=== PATIENT | male | born 1935 | race Caucasian/White ===

== ENCOUNTER 2018-02-20 05:26 | Outpatient (CLI) | payer MEDICARE, OTHER ==
[~2018-02-20] VITALS: Ht 172.7 cm; Wt 62.1 kg
[~2018-02-20 05:26] MED LIST: CIPR-17 PO; DIAZ2TAB2 PO; FINA5TAB6 PO; GABA600T2 PO; GBPN300C PO; HYDR-34 PO; METR500T PO
[2018-02-20] MEDS ORDERED: SERT50TA9 PO (12:05)
[2018-02-20] MEDS ORDERED: MULT-1102 PO (12:05)
[2018-02-20] MEDS ORDERED: FINA5TAB6 PO (12:05)
[2018-02-20] MEDS ORDERED: DIAZ2TAB2 PO (12:05)
[2018-02-20] MEDS ORDERED: GABA-488 PO (12:05)
[2018-02-20] MEDS ORDERED: UBID100C17 PO (12:05)
[2018-02-20] MEDS ORDERED: ROSU5TAB12 PO (12:05)
== END 2018-02-20 12:06 | disposition home or self-care (01) ==
LOC: PREOP 05:26
PROVIDERS: ATTEND Surgery
DX: Z29.8 Encounter for other specified prophylactic measures (principal)

== ENCOUNTER 2018-02-24 12:06 | Day surgery (SDC) | payer MEDICARE, OTHER ==
[~2018-02-24] VITALS: Ht 172.7 cm; Wt 62.1 kg
[~2018-02-24 12:06] MED LIST changes: +GABA-488 PO; +MULT-1102 PO; +ROSU5TAB12 PO; +SERT50TA9 PO; +UBID100C17 PO
[2018-02-24] MEDS ORDERED: NS IV 500 ML 500 ML ONE (12:19)
--- NOTE | 2018-02-24 12:29 | Progress Note-Pre Operative ---
Pre-Operative Progress Note H&P Reviewed The H&P was reviewed, patient examined and no changes noted. Date Seen by Provider: Feb 24, 2018 Time Seen by Provider: 12:20 Date H&P Reviewed: Feb 24, 2018 Time H&P Reviewed: 12:20 Pre-Operative Diagnosis: rectal bleed, hx ischemic colitis ATTILA FRANCO MD Feb 24, 2018 12:29
--- NOTE | 2018-02-24 12:29 | Conscious Sedation/ASA ---
Conscious Sedation Pre-Proced Time 12:20 ASA Score 3 For ASA 3 and 4: Consider anesthesia and medical clearance. Also, for patients with a history of failed moderate sedation consider anesthesia. Airway Lungs Heart ASA score ASA 1: a normal healthy patient ASA 2: a patient with a mild systemic disease (mid diabetes, controlled hypertension, obesity ASA 3: a patient with a severe systemic disease that limits activity (angina , COPD, prior Myocardial infarction) ASA 4: a patient with an incapacitating disease that is a constant threat to life (CHF, renal failure) ASA 5: a moribund patient not expected to survive 24 hrs. (ruptured aneurysm) ASA 6: a declared brain patient whose organs are being harvested. For emergent operations, add the letter E after the classification Mallampati Classification Grade 2 Sedation Plan Analgesia, Amnesia, Plan communicated to team members, Discussed options with patient/fam, Discussed risks with patient/fam The patient is an appropriate candidate to undergo the planned procedure, sedation, and anesthesia. The patient immediately re-assessed prior to indication. ATTILA FRANCO MD Feb 24, 2018 12:28
[2018-02-24] MEDS ORDERED: ACETAMINOPHEN 325 MG TABLET PO PRN (12:30)
[2018-02-24] MEDS ORDERED: HYDROcodone/APAP 5 MG/325 MG (LORTAB) TAB PO PRN (12:30)
[2018-02-24] MEDS ORDERED: morphine INJ 10 MG/ML 1ML (SYR OR VIAL) IV PRN (12:30)
[2018-02-24] MEDS ORDERED: ONDANSETRON 4 MG/2 ML (SDV) Z0FRAN IV PRN (12:30)
[2018-02-24] MEDS ORDERED: NS IV 500 ML 500 ML IV PRN (12:34)
[2018-02-24] MEDS ORDERED: LIDOCAINE JELLY 2% 6 ML SYRINGE MM PRN (12:45)
[2018-02-24] MEDS ORDERED: fentaNYL INJECTION 100 MCG/2 ML AMP IVP ONE (12:45)
[2018-02-24] MEDS ORDERED: MIDAZOLAM 2 MG/2 ML (VERSED) VIAL IVP ONE (12:45)
[2018-02-24] MEDS ORDERED: MIDAZOLAM 2 MG/2 ML (VERSED) VIAL ONE ×5 (12:55→13:13)
[2018-02-24] MEDS ORDERED: fentaNYL INJECTION 100 MCG/2 ML AMP ONE ×2 (12:55→13:11)
[2018-02-24 12:56] VITALS: BP 140/71
[2018-02-24] MEDS ORDERED: LIDOCAINE JELLY 2% 6 ML SYRINGE ONE (12:59)
--- NOTE | 2018-02-24 13:00 | Discharge Inst-Surgical ---
D/C Lap Instructions-JOAN Follow Up PRN Activity as tolerated High Fiber Diet 25g or more per day Avoid Alcohol, Caffeine, Spicy [place] and Acid foods. Drink 64 fluid oz or more of fluids per day. Symptoms to Report: Fever over 101 degree F, Nausea/Vomiting If any problems/questions: Contact your physician or go to Emergency Room ATTILA FRANCO MD Feb 24, 2018 13:00
--- NOTE | 2018-02-24 13:52 | Progress Note-Post Operative ---
Post-Operative Progess Note Surgeon (s)/Chairman & Co Founder (s) Surgeon ATTILA FRANCO MD Chairman & Co Founder: none Pre-Operative Diagnosis rectal bleed, hx ischemic colitis Post-Operative Diagnosis rectal mass 10cm from anal verge, severe sigmoid diverticulosis, mild chronic stage 2 ext and int hemorrhoids. Procedure & Operative Findings Date of Procedure 02/24/18 Procedure Performed/Findings Colonoscopy with bx and submucosal injection. Rigid proctoscopy. Anesthesia Type CS Estimated Blood Loss Estimated blood loss (mL): minimal Specimens/Packing Specimens Removed rectal mass ATTILA FRANCO MD Feb 24, 2018 13:52
--- NOTE | 2018-02-24 13:53 | Discharge Inst-Surgical ---
D/C Lap Instructions-JOAN Follow Up Appt in 1 week Activity as tolerated High Fiber Diet 25g or more per day Avoid Alcohol, Caffeine, Spicy [place] and Acid foods. Drink 64 fluid oz or more of fluids per day. Symptoms to Report: Fever over 101 degree F, Nausea/Vomiting If any problems/questions: Contact your physician or go to Emergency Room ATTILA FRANCO MD Feb 24, 2018 13:53
[2018-02-24 13:55] VITALS: BP 112/72
[2018-02-24 14:25] VITALS: BP 117/76
[2018-02-24 14:29] VITALS: BP 117/76
--- NOTE | 2018-02-25 01:33 | OPERATIVE REPORT ---
DATE OF SERVICE: 02/24/2018 ATTENDING PRIMARY CARE PHYSICIAN: Dr. Servin. PREOPERATIVE DIAGNOSES: Rectal bleed, history of ischemic colitis and severe sigmoid diverticulosis. POSTOPERATIVE DIAGNOSES: Rectal mass at approximately 8 to 10 cm from the anal verge, severe sigmoid diverticulosis with no active bleeding. Chronic stage II external and internal hemorrhoids. PROCEDURE: Colonoscopy with biopsy and submucosal injection, rigid proctoscopy. SURGEON: Attila Franco MD ANESTHESIA: Conscious sedation. ESTIMATED BLOOD LOSS: Minimal. FINDINGS: Large mass of the rectum at approximately 8 to 10 cm from the anal verge, which encompassed approximately 3/4 of the luminal diameter. This was easily friable and appeared worrisome for an adenocarcinoma. Severe sigmoid diverticulosis with no mucosal inflammatory change to indicate any active diverticulitis as well as no bleeding. The remainder of the colon was normal. DISPOSITION: The patient tolerated the procedure well. INDICATIONS: The patient is an 82-year-old male known to us. We had initially seen in 11/2010 where he presented to the Emergency Department with a 1-day history of crampy lower abdominal pain and also developed rectal bleeding at that time as well as nausea and vomiting. A CT scan was performed, which showed inflammation of the descending colon consistent with colitis. He then underwent a colonoscopy on 12/18/2010 and was found to have severe sigmoid diverticulosis as well as the descending and sigmoid colitis and the biopsies were consistent with an ischemic colitis. He was seen in the office and had reported a 2 to 3-week history of bright red blood per rectum on an intermittent basis. He does not report any abdominal pain and states that he is tolerating a regular diet and has not reported any inadvertent weight loss. He does not report any family history of colon cancer; however, does have a history of breast cancer with his sister having the disease and he has a personal history of cancer, which encompasses a bladder cancer. DESCRIPTION OF PROCEDURE: The patient was brought to the endoscopy suite, laid in the left lateral decubitus position. After adequate IV pain and sedating medications and conscious sedation anesthesia, a digital rectal examination was performed. Mild chronic stage II external and internal hemorrhoids were identified, which were not actively edematous nor inflamed and no bleeding. Normal sphincter tone was felt and there were no palpable masses. The endoscope was then intubated to the anus and rectum, gently insufflated. The endoscope was then advanced to the valves of Staton in the rectum. At approximately the 2nd or 3rd valve of Stat[place], a rectal mass was identified. This was a nonobstructing; however, approximately encompassed three-fourths of the diameter of the lumen of the rectum. This was easily friable and worrisome for an adenocarcinoma. Multiple biopsies were taken of the mass using forceps with visualization of good hemostasis. We then proceeded with a submucosal injection of black ink proximal and distal to the lesion. We then proceeded to pass the lesion into the sigmoid colon where again a severe sigmoid diverticulosis identified. There were no mucosal inflammatory changes identified to indicate any active diverticulitis as well as no active bleeding. The endoscope was then advanced to the remainder of the descending, transverse and ascending colon to the cecum. These segments were normal. Endoscope was then slowly withdrawn while taking a second look and suctioning of residual air with no additional findings. We then decided to proceed with a rigid proctoscopy to measure the distance of the lesion from the anal verge. The proctoscope was 10 cm in length and placed with the colonoscope used as a light as well as camera. The endoscope was then advanced until we could visualize the lesion, which was approximately just beyond the tip of the proctoscope. The proctoscope was then removed. The patient tolerated the procedure well. We will await the biopsy results; however, the lesion is worrisome for an adenocarcinoma of the rectum. We will await the biopsy results and then proceed with a CT scan of the abdomen and pelvis and then refer to oncology. If this is a rectal cancer for neoadjuvant chemoradiation to downsize the tumor and then proceed with a low anterior resection. Job ID: [id number] DocumentID: [id number] Dictated Date: 02/24/2018 13:40:16 Studio Owner Date: 02/25/2018 01:32:58 Dictated By: ATTILA FRANCO MD
== END 2018-02-24 14:30 | disposition home or self-care (01) ==
LOC: ENDO 12:06
PROVIDERS: ATTEND Surgery
DX: C20 Malignant neoplasm of rectum (principal); K57.30 Diverticulosis of large intestine without perforation or abscess without bleeding; K64.1 Second degree hemorrhoids; E78.00 Pure hypercholesterolemia, unspecified; F41.9 Anxiety disorder, unspecified; F32.9 Major depressive disorder, single episode, unspecified; N40.0 Benign prostatic hyperplasia without lower urinary tract symptoms; Z85.51 Personal history of malignant neoplasm of bladder; Z87.891 Personal history of nicotine dependence; Z79.899 Other long term (current) drug therapy

== ENCOUNTER → 2018-02-27 | Outpatient (CLI) | payer MEDICARE, OTHER ==
[~2018-02-27] MED LIST changes: +IOHEXOL 350 MG/ML 100 ML (OMNIPAQUE 350) VIAL IV ONE; +NS 100 ML (IVPB) BAG IV ONE; +RECEIVED CONTRAST (Hold Metformin) IV SCH
[2018-02-27 15:44] LABS: BUN/CREATININE RATIO 11; CREATININE SERUM 1.07 MG/DL (0.60-1.30); GFR ESTIMATED > 60
--- NOTE | 2018-02-28 08:59 | Diagnostic Imaging Report ---
PROCEDURE: CT abdomen and pelvis with and without contrast. TECHNIQUE: Precontrast acquisitions were acquired through the abdomen and pelvis. Multiple contiguous axial images were obtained through the abdomen and pelvis after the administration of intravenous contrast. INDICATION: Rectal/colon mass. Presurgical evaluation. COMPARISON: 11/01/2012 FINDINGS: Included portions of the lung bases are clear. CT abdomen: There is scattered colonic diverticulosis, but no CT evidence of acute diverticulitis. Moderate amount of air and stool is noted scattered throughout the colon. Normal appendix cannot be adequately identified, but there is no pericecal formation. Small bowel loops are nondistended. Evaluation of liver demonstrates a lobulated hypodense hypoenhancing lesion within segment 7 of the liver. There is no internal enhancement. Lesion has slightly increased in size when compared to 11/01/2012. 1 cm on today's exam, in comparison to 1.1 x 0.7 cm previously. Lesion otherwise continues to show a benign cystic appearance. No new hepatic mass type lesions are seen. The kidneys, adrenal glands, spleen, and pancreas have a normal CT appearance. There is no loculated fluid collection, free fluid, nor free air within the abdomen. No abnormal mesenteric or retroperitoneal adenopathy is seen. There is mild scattered calcified aortic and arterial atherosclerosis. Bony structures show S-shaped scoliotic deformity of the thoracolumbar spine with multilevel degenerative changes. No lytic or blastic osseous lesions are identified. CT pelvis: There is concentric apple core type lesion involving the high rectum near the rectosigmoidal junction. Area in question measures 1.4 cm in thickness (image 63, series 2). There is slight stranding of the surrounding colorectal fat. No abnormal pelvic adenopathy is seen. Prostate is mildly enlarged measuring 4.8 x 4 cm. Urinary bladder is grossly unremarkable. There is no loculated fluid collection, free fluid, nor free air within the pelvis. Bony structures show no acute abnormalities. IMPRESSION: 1. Concentric apple core type lesion near the rectosigmoidal junction, which is felt to correspond to patient's known malignancy. 2. Moderate amount of air and stool within the more proximal colon. Findings could be on the basis of constipation, although to some degree of obstruction cannot be entirely excluded. 3. Slight interval increase in otherwise benign-appearing hepatic cysts. 4. No evidence of distal metastatic disease within the abdomen. Dictated by: Dictated on workstation # [id number]
== END ==
LOC: RAD 15:09
PROVIDERS: ATTEND Surgery
DX: K76.89 Other specified diseases of liver (principal); K63.9 Disease of intestine, unspecified
CPT/HCPCS: 36415; 74178; 82565; 84520

== ENCOUNTER → 2018-03-14 | Outpatient (CLI) | payer MEDICARE, OTHER ==
[~2018-03-14] MED LIST changes: +GADOBUTROL 7.5 MMOL/7.5 ML (GADAVIST) VIAL IV ONE; -IOHEXOL 350 MG/ML 100 ML (OMNIPAQUE 350) VIAL IV ONE; -NS 100 ML (IVPB) BAG IV ONE; -RECEIVED CONTRAST (Hold Metformin) IV SCH
--- NOTE | 2018-03-14 10:07 | Diagnostic Imaging Report ---
PROCEDURE: MRI rectal cancer staging. TECHNIQUE: Multiplanar, multisequence MRI of the pelvis was performed with and without contrast. Gadavist intravenous contrast is administered. INDICATION: Rectal cancer, staging exam. FINDINGS: 1. MRI PROTOCOL: Overall image quality: Adequate/diagnostic. 2. TUMOR LOCATION Circumferential rectal tumor is located near the junction of the proximal and middle one-third of the rectum. Its inferior margin is approximately 10 cm above the anal verge and therefore approximately 7-8 cm above the internal anal sphincter. The inferior margin of the tumor appears to be near the level the anterior peritoneal reflection. 3. TUMOR CHARACTERISTICS, T-CATEGORY and DISTANCE TO THE MRF AND EXTRAMURAL DEPTH OF INVASION (EMD) The tumor has circumferential involvement of rectum and extends over a craniocaudal length of approximately 5 cm. The tumor invades the muscularis propria, but there are no definitive foci of extension through the muscularis propria. 4. EXTRAMURAL VASCULAR INVASION (EMVI) EMVI: No features of extramural vascular invasion. 5. MESORECTAL LYMPH NODES AND TUMOR DEPOSITS There are no enlarged soft tissue nodules/abnormal lymph nodes within the mesorectal fat. 6. EXTRAMESORECTAL LYMPH NODES No lymphadenopathy along the pelvic sidewall or superior rectal vein. IMPRESSION: 1. The rectal tumor is located in the proximal to middle one-third of the rectum and has invasion into but not beyond the muscularis propria (T2). 2. No regional lymph node metastases (N0). TNM Staging Classification Primary Tumour (T) TX Primary tumor cannot be assess. T0 No evidence of primary tumor. Tis Tis Carcinoma in situ: intraepithelial or invasion of lamina propria. T1 Tumour invades submucosa. T2 Tumor invades muscularis propria. T3 Tumor invades through the muscularis propria into pericolorectal tissues. T4a Tumor penetrates to the surface of the visceral peritoneum. T4b Tumor directly invades or is adherent to other organs or structures. Regional Lymph Nodes (N) NX Regional lymph nodes cannot be assessed. NO No regional lymph node metastasis. N1 Metastases in 1-3 regional lymph node. N2 Metastases in >4 regional lymph nodes. Distant Metastasis (M) M0 No distant metastasis. M1 Distant metastasis. Stage Prognostic Groups Stage T N N 0 Tis NO MO I T1-T2 NO MO II T3-T4 NO MO III Any T N1-N2 MO IV Any T Any N M1 Dictated by: Dictated on workstation # [id number]
== END ==
LOC: RAD 07:35
PROVIDERS: ATTEND Internal Medicine Hematology & Oncology
DX: C20 Malignant neoplasm of rectum (principal)
CPT/HCPCS: 72197

== ENCOUNTER 2018-03-23 11:37 | Outpatient (CLI) | payer MEDICARE, OTHER ==
[~2018-03-23] VITALS: Ht 172.7 cm; Wt 61.7 kg
[~2018-03-23 11:37] MED LIST changes: -GADOBUTROL 7.5 MMOL/7.5 ML (GADAVIST) VIAL IV ONE
[2018-03-23 11:58] VITALS: BP 129/82
[2018-03-23 12:40] LABS: BASOPHILS % (AUTO) 1 % (0-10); EOSINOPHILS # (AUTO) 0.1 10^3/uL (0.0-0.3); EOSINOPHILS % (AUTO) 2 % (0-10); HEMATOCRIT 39 % (40-54); HEMOGLOBIN 12.6 G/DL (13.3-17.7); LYMPHOCYTES # (AUTO) 2.1 X 10^3 (1.0-4.0); LYMPHOCYTES % (AUTO) 34 % (12-44); MEAN CORPUSCULAR HEMOGLOBIN 28 PG (25-34); MEAN CORPUSCULAR HGB CONC 33 G/DL (32-36); MEAN CORPUSCULAR VOLUME 86 FL (80-99); MEAN PLATELET VOLUME 9.9 FL (7.4-10.4); MONOCYTES # (AUTO) 0.9 X 10^3 (0.0-1.0); MONOCYTES % (AUTO) 14 % (0-12); NEUTROPHILS % (AUTO) 49 % (42-75); PLATELET COUNT 164 10^3/uL (130-400); RED CELL DISTRIBUTION WIDTH 14.5 % (10.0-14.5)
[2018-03-23 13:02] LABS: BUN/CREATININE RATIO 14; CALCIUM 9.7 MG/DL (8.5-10.1); CARBON DIOXIDE 22 MMOL/L (21-32); CHLORIDE 107 MMOL/L (98-107); GFR ESTIMATED > 60; GLUCOSE 80 MG/DL (70-105); POTASSIUM 4.2 MMOL/L (3.6-5.0); SODIUM 138 MMOL/L (135-145)
== END 2018-03-23 12:30 | disposition home or self-care (01) ==
LOC: PREOP 11:37
PROVIDERS: ATTEND Surgery
DX: Z01.812 Encounter for preprocedural laboratory examination (principal); Z11.2 Encounter for screening for other bacterial diseases; C20 Malignant neoplasm of rectum
CPT/HCPCS: 36415; 80048; 85025; 87081

== ENCOUNTER 2018-03-28 08:10 | Inpatient (IN) | payer MEDICARE, OTHER ==
[2018-03-28] VITALS (10 sets, daily range): BP systolic 100–130; BP diastolic 56–69
[~2018-03-28] VITALS: Ht 172.7 cm; Wt 61.7 kg
--- NOTE | 2018-03-28 08:32 | Progress Note-Pre Operative ---
Pre-Operative Progress Note H&P Reviewed The H&P was reviewed, patient examined and no changes noted. Date Seen by Provider: Mar 28, 2018 Time Seen by Provider: 08:32 Date H&P Reviewed: Mar 28, 2018 Time H&P Reviewed: 08:32 Pre-Operative Diagnosis: RECTAL CANCER MAIKOL PUGA MD Mar 28, 2018 08:32
[2018-03-28] MEDS ORDERED: IOPAMIDOL 61% 30 ML (ISOVUE 300) VIAL IV ONE (08:36)
[2018-03-28] MEDS ORDERED: BUP/EPI 0.5% 1:200,000 (SENSORCAINE) 30 ML VIAL ONE (08:36)
[2018-03-28] MEDS ORDERED: metroNIDAZOLE 500MG/100ML IVPB 100 ML IV ONE (08:45)
[2018-03-28] MEDS ORDERED: ceFAZolin 2 GM IV Premixed 50 ML IV ONE (08:45)
[2018-03-28] MEDS: LACTATED RINGERS 1,000 ML IV PRN ×4 (09:07→14:40)
[2018-03-28] MEDS ORDERED: MIDAZOLAM 2 MG/2 ML (VERSED) VIAL ONE (09:08)
[2018-03-28] MEDS ORDERED: ONDANSETRON 4 MG/2 ML (SDV) Z0FRAN ONE ×2 (09:08→09:11)
[2018-03-28] MEDS ORDERED: FAMOTIDINE 20MG/2ML IV (PEPCID) ONE (09:09)
[2018-03-28] MEDS ORDERED: LIDOCAINE PF 2% 5 ML (XYLOCAINE) VIAL ONE (09:11)
[2018-03-28] MEDS ORDERED: ROCURONIUM 10 MG/ML 5 ML SYRINGE IV ONE ×2 (09:11→11:42)
[2018-03-28] MEDS ORDERED: DEXAMETHASONE 10 MG/ML (DECADRON) 1 ML VIAL ONE (09:11)
[2018-03-28] MEDS ORDERED: proPOfol 200 MG/20 ML (DIPRIVAN) VIAL IV ONE (09:11)
[2018-03-28] MEDS ORDERED: SEVOFLURANE (ULTANE) 15 ML INHAL SOLN ONE ×10 (09:12→15:35)
[2018-03-28] MEDS ORDERED: fentaNYL INJECTION 100 MCG/2 ML AMP ONE ×2 (09:12→13:29)
[2018-03-28] MEDS ORDERED: MIDAZOLAM 2 MG/2 ML (VERSED) VIAL IV ONE (09:15)
[2018-03-28] MEDS ORDERED: ONDANSETRON 4 MG/2 ML (SDV) Z0FRAN IV ONE (09:15)
[2018-03-28] MEDS ORDERED: FAMOTIDINE 20MG/2ML IV (PEPCID) IV ONE (09:15)
--- NOTE | 2018-03-28 09:36 | Progress Note-Pre Operative ---
Pre-Operative Progress Note H&P Reviewed The H&P was reviewed, patient examined and no changes noted. Date Seen by Provider: Mar 28, 2018 Time Seen by Provider: 09:30 Date H&P Reviewed: Mar 28, 2018 Time H&P Reviewed: 09:30 Pre-Operative Diagnosis: rectal cancer ATTILA FRANCO MD Mar 28, 2018 09:36
[2018-03-28] MEDS ORDERED: HEParin (CENTRAL IV FLUSH) 500 UNIT/5 ML SYR ONE (10:42)
--- NOTE | 2018-03-28 10:53 | Progress Note-Post Operative ---
Post-Operative Progess Note Surgeon (s)/Protective Signal Installer Helper (s) Surgeon MAIKOL PUGA MD Protective Signal Installer Helper: NONE Pre-Operative Diagnosis RECTAL CA Post-Operative Diagnosis SAME Procedure & Operative Findings Date of Procedure 03/28/18 Procedure Performed/Findings CYSTOSCOPY, LT URETEROSCOPY AND INSERTION OF LT URETERAL STENT Anesthesia Type GENERAL Estimated Blood Loss Estimated blood loss (mL): NONE Specimens/Packing Specimens Removed NONE Packing: NONE MAIKOL PUGA MD Mar 28, 2018 10:52
[2018-03-28] MEDS ORDERED: BUPIVACAINE 0.5% 30 ML (SENSORCAINE) VIAL ONE (14:02)
[2018-03-28] MEDS ORDERED: GLYCOPYRROLATE 0.2 MG/ML (ROBINUL) 2 ML VIAL ONE (14:29)
[2018-03-28] MEDS ORDERED: NEOSTIGMINE 1 MG/ML 5 ML SYRINGE ONE (14:29)
--- NOTE | 2018-03-28 14:55 | Progress Note-Post Operative ---
Post-Operative Progess Note Surgeon (s)/Studio Manager (s) Surgeon ATTILA FRANCO MD Studio Manager: elvis fajardo QUALITY ASSURANCE INSPECTOR Pre-Operative Diagnosis RECTAL CA Post-Operative Diagnosis same Procedure & Operative Findings Date of Procedure 03/28/18 Procedure Performed/Findings low anterior colorectal resection, left subclavian central venous catheter placement. Anesthesia Type GET Estimated Blood Loss Estimated blood loss (mL): minimal Specimens/Packing Specimens Removed rectosigmoid, proximal and distal anastomotic rings. Packing: NONE ATTILA FRANCO MD Mar 28, 2018 14:55
[2018-03-28] MEDS ORDERED: NS IV 1000 ML 1,000 ML IV SCH (14:59)
[2018-03-28] MEDS ORDERED: METOCLOPRAMIDE INJ 10 MG/2 ML (REGLAN) IV PRN (15:00)
[2018-03-28] MEDS ORDERED: diphenhydrAMINE 50 MG/ML INJ (BENADRYL) IVP PRN (15:00)
[2018-03-28] MEDS ORDERED: NALOXONE 0.4 MG/ML 1 ML (NARCAN) VIAL IV PRN (15:00)
[2018-03-28] MEDS ORDERED: ONDANSETRON 4 MG/2 ML (SDV) Z0FRAN IV PRN (15:00)
[2018-03-28] MEDS ORDERED: diphenhydrAMINE 50 MG/ML INJ (BENADRYL) IV PRN (15:00)
--- NOTE | 2018-03-28 15:18 | OPERATIVE REPORT ---
DATE OF SERVICE: 03/28/2018 PREOPERATIVE DIAGNOSIS: Rectal cancer. POSTOPERATIVE DIAGNOSIS: Rectal cancer. OPERATIONS PERFORMED: Cystoscopy, left ureteroscopy and insertion of left ureteral stent. SURGEON: Leo Puga MD. ANESTHESIA: General. COMPLICATIONS: None. DESCRIPTION OF PROCEDURE: Under satisfactory general anesthesia and the patient in lithotomy position, genitalia were prepped and draped in usual sterile fashion. Cystoscope was introduced under vision. The anterior urethra was normal. The prostate was mildly enlarged; however, there was a median bar. Entering the bladder, the ureteric orifices were pulled upward and laterally. No foreign body, bladder tumor or stone visualized. Using the foroblique lens, I attempted to pass a 6-Faroese urethral catheter, whistle tip and spiral tip and was unable to do so. I was concerned that I was undermining the intramural portion of the ureter, so I removed the cystoscope, inserted the 6.9 Faroese semi-rigid ureteroscope. There was no undermining of the intramural portion and the lumen of the ureter was found to be kind of tight, which was the resistor I was feeling putting the catheter in, so I withdrew the ureteroscope, reinserted the cystoscope, passed a whistle tip 6-Faroese ureteral catheter and with gentle pushing, I was able to go through the ureteral lumen, guided fluoroscopically all the way up to the left renal pelvis, confirmed fluoroscopically and by recovering the urine from the urethral catheter. I went ahead and removed the cystoscope, inserted a 16-Faroese Delgado catheter and connected to the urethral catheter using the special connector into a common back. The patient tolerated the procedure and anesthesia well and Dr. Melendrez proceeded with his surgery that he will dictate. Job ID: [id number] DocumentID: [id number] Dictated Date: 03/28/2018 10:55:45 Dermatology Teacher Date: 03/28/2018 15:17:39 Dictated By: LEO PUGA MD
[2018-03-28] MEDS ORDERED: morphine INJ 10 MG/ML 1ML (SYR OR VIAL) ONE (15:45)
[2018-03-28] MEDS ORDERED: HYDROmorphone 2 MG/ML VIAL (DILAUDID) IV ONE (15:45)
[2018-03-28] MEDS ORDERED: ONDANSETRON 4 MG/2 ML (SDV) Z0FRAN IVP PRN (15:45)
[2018-03-28] MEDS ORDERED: morphine INJ 10 MG/ML 1ML (SYR OR VIAL) IVP ONE (15:45)
--- NOTE | 2018-03-28 16:01 | Diagnostic Imaging Report ---
INDICATION: Left subclavian central line placement. Portable chest obtained at 3:37 p.m. There is no prior study for comparison. FINDINGS: Left subclavian central catheter is seen with tip overlying the left innominate vein. There is cardiomegaly. NG tube tip is near the GE junction. Additional tube is seen overlying the lower mediastinum, tip is not visualized. There is mild bibasilar atelectasis. There is no pneumothorax or pleural fluid. IMPRESSION: Cardiomegaly with bibasilar atelectatic changes. No pneumothorax or gross pleural fluid. Left subclavian central catheter tip overlies the left innominate vein. NG tube tip is near the GE junction. Dictated by: Dictated on workstation # [id number]
--- NOTE | 2018-03-28 16:30 | NUR ---
PT RECEIVED FROM RECOVERY ROOM VIA JOHANNY CODY. PT HOOKED TO BEDSIDE MONITOR AND THIS RN OBSERVED PT'S INCISIONS, OSULLIVAN, AND LALI DRAIN AND ALL WITHIN NORMAL LIMITS. PT STATES HE IS COMFORTABLE AT THIS TIME BUT IS OBSERVED TO BE MILDLY ANXIOUS. PT GIVEN CALL LIGHT AND EDUCATED ON ROOM AND HOW TO USE HIS CALL LIGHT AND TV REMOTE.
[2018-03-28] MEDS ORDERED: METOCLOPRAMIDE INJ 10 MG/2 ML (REGLAN) IVP PRN (17:31)
[2018-03-28] MEDS: RT-ALBUTEROL SULF 2.5 MG/3 ML PRE-MIX VIAL INH SCH ×2 (17:59→23:30)
[2018-03-28] MEDS ORDERED: metroNIDAZOLE 500MG/100ML IVPB 100 ML IV SCH (18:00)
[2018-03-28] MEDS: 1/2 NS W/KCL 20 MEQ/L 1,000 ML IV SCH (18:19)
[2018-03-28] MEDS: ceFAZolin 2 GM IV Premixed 50 ML IV SCH (18:20)
[2018-03-28] MEDS: fentaNYL INJECTION 1,000 MCG in NS (IVPB) 80 ML IV SCH (18:38)
[2018-03-28] MEDS: metroNIDAZOLE 500MG/100ML IVPB 100 ML IV SCH (20:49)
[2018-03-28] MEDS: ENOXAPARIN 30 MG/0.3 ML (LOVENOX) SYR SC SCH (20:49)
[2018-03-29] VITALS (24 sets, daily range): BP systolic 115–145; BP diastolic 53–98
[2018-03-29] MEDS: 1/2 NS W/KCL 20 MEQ/L 1,000 ML IV SCH ×4 (01:26→16:48)
--- NOTE | 2018-03-29 01:32 | OPERATIVE REPORT ---
DATE OF SERVICE: 03/28/2018 ATTENDING PRIMARY CARE PHYSICIAN: Jay Servin DO PREOPERATIVE DIAGNOSIS: Rectal cancer. POSTOPERATIVE DIAGNOSIS: Rectal cancer. PROCEDURE: Low anterior colorectal resection. Placement left subclavian central venous catheter. SURGEON: Zarina Melendrez MD SULFIDE HEAD OPERATOR: Preston Ward APRN ANESTHESIA: General endotracheal. ESTIMATED BLOOD LOSS: 350 mL. FINDINGS: A tumor contained within the bowel wall, no carcinomatosis, no involvement of adjacent structures. No obvious lymphadenopathy. DISPOSITION: The patient tolerated the procedure well. INDICATIONS: The patient is an 82-year-old male known to us. We had initially seen him in November 2010 with a 1-day history of crampy lower abdominal pain and rectal bleeding as well as nausea and vomiting. At that time, a CT scan was performed, which did show some inflammation of the descending colon consistent with colitis. He then underwent a colonoscopy on 12/18/2010 and found to have a severe sigmoid diverticulosis as well as descending and sigmoid colitis. 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 He returned to the office with a 2- to 3-week history of bright red blood per rectum on an intermittent basis. He reports that this was initially mild; however, had increased. He did not report any abdominal pain as well as no inadvertent weight loss. He also did not report a family history of colon cancer; however, does have a family history of breast cancer with his sister having the disease and he has a personal history of bladder cancer. On 02/24/2018, he underwent a colonoscopy with biopsy as well as submucosal injection with a rigid proctoscope. Findings were consistent with a large mass of the rectum 8 to 10 cm from the anal verge encompassing approximately three ports of the luminal diameter. This was easily friable. He was also found to have a severe sigmoid diverticulosis; however, no mucosal inflammatory change to indicate any active diverticulitis as well as no bleeding. 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 He also underwent a CT scan, which did show the concentric apple core type lesion of the rectosigmoid region. There did not appear to be any lymphadenopathy or any other metastatic disease. DESCRIPTION OF PROCEDURE: The patient was brought to the operating room, laid supine on the table. After adequate IV pain and sedative medications and general endotracheal intubation, the abdomen was prepped and draped in standard surgical fashion. Before this the chest and neck were prepped and draped. The left subclavian vein was then cannulated withdrawing of venous blood and the guidewire was then inserted without resistance. A skin incision was made with and #11 blade and a tract created with a venous dilator. A triple lumen central venous catheter was then placed over the guidewire using the seldinger technique. All ports manuel venous blood and saline flush pushed without resistance. The catheter was then sutured to the skin with 3-0 silk. A 0.5% Marcaine with epinephrine was used to anesthetize the overlying skin in the left upper abdominal quadrant and a transverse skin incision made using a 15 blade. An 0 silk suture was applied to the medial aspect of the incision for retraction and a Veress needle inserted with a low opening pressure of 0 mmHg. The abdomen was insufflated to 15 mmHg pressure. The Veress needle removed and a 5 mm trocar placed followed by a 5 mm 45-degree angle laparoscope. A 4-quadrant abdominal x-ray was performed. There is no carcinomatosis identified as well as no obvious lesions within the peritoneal cavity. Under direct visualization, we then proceed to place a supraumbilical 10 mm port after the skin and peritoneal lining were anesthetized using 0.5% Marcaine with epinephrine and a transverse skin incision made using 15 blade. In a similar manner, a suprapubic 5 mm port was placed. The patient was placed in Trendelenburg position as well as plane left side up, right side down. We proceeded with a full dissection of the sigmoid colon as well as the descending colon to the rectum as well as the peritoneal reflection using a Sonicision as well as blunt dissection. Before the procedure, a ureteral stent was placed by urology. The ureter was identified and spared throughout the process. Good hemostasis was also observed. We then proceeded with the identification of the tumor, which was marked with submucosal injection of blacking. We proceeded with a very low dissection until we were proximal to the lesion and using the toltal mesorectal excision approach. We first tried to place a curved linear stapler, however, could not get around the lesion. We then proceeded to try to place a contour TA stapler; however, due to the angulation, we cannot achieve this with a negative margin. At this point, we decided to proceed with small infraumbilical midline laparotomy incision. This was done using a 10 blade and the subcutaneous tissue as well as fascia. Peritoneal lining were then opened under direct visualization using a Nico-Gasper device. With blunt dissection and with hand retraction, we were able to get contour TA stapler beyond the lesion and the stapler was fired. We proceeded with the proximal resection of the descending colon. A pursestring was applied and the colon resected using a 10 blade. We then proceeded with a no-touch technique and the end of the colon was dilated to approximately 32 mm. We decided to use a 29 mm EEA stapler and the anvil was placed into the lumen of the colon and the Pursestrings tied. The EEA stapler was then placed into the rectum and the anvil opened under direct visualization and the anastomosis complete. The proximal and distal anastomotic rings were identified and intact and sent to pathology. The entire rectosigmoid colon was also sent to pathology. The peritoneal cavity was then copiously irrigated and suctioned out. Good hemostasis was observed. The anastomotic line was then covered with Tisseel fibrin glue. A 19-Chadian Yon-Anderson drain was placed around the area of anastomosis and brought out one of the 5 mm trocar site and sutured to the skin using 3-0 nylon suture. The fascia and peritoneal lining were then closed using a #1 looped PDS suture. Subcutaneous tissue was then closed using 3-0 Vicryl interrupted suture. Skin was closed using 4-0 Monocryl running subcuticular suture as well as the trocar skin sites. The patient tolerated the procedure well. We will admit him to the ICU and consult his primary care physician for medical management. We will also proceed with DVT prophylaxis with early ambulation and calf SCDs as well as Lovenox injections. We will also use a TRACK REPAIRER HELPER for pain control. Once he does have some bowel function, we will discontinue his nasogastric tube and start clear liquid diet and advance as tolerated. Job ID: [id number] DocumentID: [id number] Dictated Date: 03/28/2018 15:21:46 Associate Professor Of Archaeology Date: 03/29/2018 01:31:40 Dictated By: ZARINA MELENDREZ MD [facility] HOSPITALElroy
[2018-03-29] MEDS: ceFAZolin 2 GM IV Premixed 50 ML IV SCH ×3 (01:46→19:55)
[2018-03-29] MEDS: RT-ALBUTEROL SULF 2.5 MG/3 ML PRE-MIX VIAL INH SCH ×5 (02:22→22:01)
[2018-03-29] MEDS: metroNIDAZOLE 500MG/100ML IVPB 100 ML IV SCH ×3 (03:41→21:02)
[2018-03-29 05:27] LABS: HEMOGLOBIN 10.8 G/DL (13.3-17.7); MEAN PLATELET VOLUME 9.7 FL (7.4-10.4); RED CELL DISTRIBUTION WIDTH 14.4 % (10.0-14.5); WHITE BLOOD COUNT 14.8 10^3/uL (4.3-11.0)
[2018-03-29 05:42] LABS: CALCIUM 8.1 MG/DL (8.5-10.1); CREATININE SERUM 1.19 MG/DL (0.60-1.30); POTASSIUM 4.4 MMOL/L (3.6-5.0)
--- NOTE | 2018-03-29 06:08 | NUR ---
0515--Pt c/o back discomfort r/t being in bed, pt up to chair at this time 0530--Pt reports wanting to return to bed, therapeutic communication attempted, this RN instructed pt to remain in chair longer 0545--Pt reports wanting to go back to bed, pt back to bed at this time
--- NOTE | 2018-03-29 07:35 | Consultation ---
History of Present Illness History of Present Illness Patient Consulted On(dwayne/time) 03/29/18 07:30 Time Seen by Provider: 07:30 History of Present Illness Patient came to the office complaining of blood in the stools. Patient had a colonoscopy showing that rectal mass. Patient seen by oncology. Patient had surgical removal of tumor yesterday Patient's white blood cell 14,000 today. Temperature yesterday 100.2. Patient has a previous history of bladder cancer. Abdomen distended this morning normal bowel sounds. Allergies and Home Medications Allergies Coded Allergies: ciprofloxacin (Verified Allergy, Unknown, 02/20/18) Home Medications Diazepam 2 Mg Tablet, 1 MG PO DAILY, (Reported) take 1/2of 2mg tab Finasteride 5 Mg Tablet, 5 MG PO DAILY, (Reported) Gabapentin 300 Mg Capsule, 300 MG PO TID, (Reported) Multivit-Min/Folic/Vit K/Lycop 1 Each Tablet, 1 EACH PO DAILY, (Reported) Rosuvastatin Calcium 5 Mg Tablet, 5 MG PO HS, (Reported) Sertraline HCl 50 Mg Tablet, 50 MG PO DAILY, (Reported) Ubidecarenone Unknown Strength Capsule, 200 MG PO DAILY, (Reported) Patient Home Medication List Home Medication List Reviewed: Yes Past Hcjptzh-Jhvnhx-Rdhfjd Hx Patient Social History Alcohol Use: Denies Use Recreational Drug Use: No Former Smoker, Quit: Feb 20, 1999 Recent Foreign Travel: No Contact w/Someone Who Travel: No Recent Infectious Disease Expo: No Recent Hopitalizations: No Immunizations Up To Date Date of Influenza Vaccine: Nov 21, 2017 Seasonal Allergies Seasonal Allergies: No Past Medical History Surgeries: Yes (TURBT X2) Respiratory: No Cardiac: Yes High Cholesterol Neurological: Yes Reproductive Disorders: No Genitourinary: Yes (hx bladder cancer) Benign Prostatic Hyperpl Gastrointestinal: Yes (rectal CANCER) Musculoskeletal: No Endocrine: No HEENT: No Cancer: Yes Bladder What Type of Treatment Did You: Surgical Intervention Psychosocial: No Integumentary: No Blood Disorders: No Family Medical History Diabetes mellitus G8 BROTHER FH: breast cancer 19 MOTHER G8 SISTER Review of Systems-General Constitutional: weakness EENTM: no symptoms reported Respiratory: no symptoms reported Cardiovascular: no symptoms reported Gastrointestinal: other (No bowel sounds, distention) Genitourinary: no symptoms reported Physical Exam-General Problems Physical Exam Vital Signs Vital Signs - First Documented 03/28/18 03/28/18 03/28/18 08:35 16:45 20:48 Temp 99.1 Pulse 86 Resp 16 B/P (MAP) 100/67 (78) Pulse Ox 94 O2 Delivery Room Air Capillary Refill : General Appearance: no apparent distress, thin Eyes: Bilateral Eye Normal Inspection HEENT: normal ENT inspection Neck: full range of motion Respiratory: lungs clear, normal breath sounds, no respiratory distress, no accessory muscle use Cardiovascular: regular rate, rhythm, no murmur Gastrointestinal: other (No bowel sounds, NG tube in place) Assessment/Plan Assessment/Plan Admission Diagnosis/Plan Rectal cancer. Leukocytosis Admission Status: Inpatient Order (span 2 midnights) Reason for Inpatient Admission: Surgery for rectal cancer in ICU RENAN WILSON DO Mar 29, 2018 07:35
[2018-03-29] MEDS: PANTOPRAZOLE 40 MG (PROTONIX) VIAL IV SCH (09:08)
[2018-03-29] MEDS: SENNA W/DOCUSATE (SENOKOT S) TABLET PO SCH (09:08)
[2018-03-29] MEDS: ENOXAPARIN 30 MG/0.3 ML (LOVENOX) SYR SC SCH ×2 (09:08→21:02)
--- NOTE | 2018-03-29 11:33 | NUR ---
Pastoral care visit, shared departments availability and offered support and prayer,pt was resting, pts advised they are members of [facility].
[2018-03-29] MEDS ORDERED: ACETAMINOPHEN 650 MG SUPP (TYLENOL) PR PRN (12:30)
[2018-03-29] MEDS: ACETAMINOPHEN 325 MG TABLET PO PRN ×3 (14:05→23:24)
--- NOTE | 2018-03-29 14:25 | Progress Note (SOAP) ---
Subjective Date Seen by a Provider: Mar 29, 2018 Time Seen by a Provider: 14:00 Subjective/Events-last exam doing ok. pjain controlled with BRIDGE TENDER, moderate NGT output. low grade fevers most likely due to atelectasis. minimal LALI output. Objective Exam Vital Signs Date Time Temp Pulse Resp B/P (MAP) Pulse Ox O2 Delivery O2 Flow Rate FiO2 03/29/18 14:05 101.5 03/29/18 14:00 93 36 130/65 (86) 94 Room Air 03/29/18 13:00 115 38 117/92 (100) 95 Room Air 03/29/18 12:57 100.4 03/29/18 12:00 117 31 126/74 (91) 93 Room Air 03/29/18 11:40 100.8 03/29/18 11:00 99 28 140/72 (94) 100 Room Air 03/29/18 10:56 93 Room Air 03/29/18 10:00 92 28 128/64 (85) 93 Room Air 03/29/18 09:00 111 19 115/66 (82) 96 Room Air 03/29/18 08:45 94 Room Air 03/29/18 08:00 114 34 117/53 (74) 93 Room Air 03/29/18 07:06 94 Room Air 03/29/18 07:00 101 03/29/18 07:00 93 26 117/70 (86) 94 Room Air 03/29/18 06:00 86 27 125/69 (87) 94 Room Air 03/29/18 06:00 22 03/29/18 05:00 109 24 141/84 (103) 97 Room Air 03/29/18 04:00 104 27 129/69 (89) 94 Room Air 03/29/18 04:00 94 Room Air 03/29/18 03:46 100.2 03/29/18 03:00 108 23 132/61 (84) 92 Room Air 03/29/18 02:22 93 Room Air 03/29/18 02:00 92 17 138/68 (91) 94 Room Air 03/29/18 01:00 94 20 131/66 (87) 94 Room Air 03/29/18 01:00 94 03/29/18 00:00 93 27 129/65 (86) 94 Room Air 03/29/18 00:00 94 Room Air 03/28/18 23:44 100.1 03/28/18 23:00 95 26 125/69 (87) 94 Room Air 03/28/18 22:00 102 16 124/65 (84) 95 Room Air 03/28/18 21:00 22 03/28/18 21:00 94 24 130/68 (88) 94 Room Air 03/28/18 20:48 99.1 Room Air 03/28/18 20:00 94 Room Air 03/28/18 20:00 93 13 112/63 (79) 95 Room Air 03/28/18 19:00 95 03/28/18 19:00 95 17 104/63 (77) 94 Room Air 03/28/18 18:02 95 Room Air 03/28/18 17:45 93 22 107/63 (78) 95 Room Air 03/28/18 17:30 91 17 106/61 (76) 95 Room Air 03/28/18 17:15 86 03/28/18 17:15 88 22 105/59 (74) 94 Room Air 03/28/18 17:00 82 18 102/56 (71) 94 Room Air 03/28/18 16:45 86 16 100/67 (78) 95 Room Air I & O 03/29/18 07:00 Intake Total 5450 ml Output Total 1303 ml Balance 4147 ml Capillary Refill : General Appearance: No Apparent Distress HEENT: PERRL/EOMI, TMs Normal Neck: Full Range of Motion Respiratory: Chest Non Tender, Lungs Clear, Decreased Breath Sounds Cardiovascular: Regular Rate, Rhythm Gastrointestinal: soft, tenderness, other (wounds clean/dry) Extremity: Normal Capillary Refill Neurologic/Psychiatric: Alert, Oriented x3 Skin: Normal Color Lymphatic: No Adenopathy Results Lab Laboratory Tests 03/29/18 05:15: White Blood Count 14.8H, Red Blood Count 3.78L, Hemoglobin 10.8L, Hematocrit 32L , Mean Corpuscular Volume 85, Mean Corpuscular Hemoglobin 29, Mean Corpuscular Hemoglobin Concent 34, Red Cell Distribution Width 14.4, Platelet Count 185, Mean Platelet Volume 9.7, Sodium Level 134L, Potassium Level 4.4, Chloride Level 107, Carbon Dioxide Level 19L, Anion Gap 8, Blood Urea Nitrogen 18, Creatinine 1.19, Estimat Glomerular Filtration Rate 59, BUN/Creatinine Ratio 15 , Glucose Level 145H, Calcium Level 8.1L Assessment/Plan Assessment/Plan Assess & Plan/Chief Complaint s/p LAR for ca. increase ambulation. continue DVT prophylaxis. IS and breathing tx. ATTILA FRANCO MD Mar 29, 2018 14:25
--- NOTE | 2018-03-29 14:48 | Anesthesia-General Post-Op ---
General Patient Condition Mental Status/LOC: Same as Preop Cardiovascular: Satisfactory Nausea/Vomiting: Absent Respiratory: Satisfactory Pain: Controlled Complications: Absent Post Op Complications Complications None Follow Up Care/Instructions Patient Instructions None needed. Anesthesia/Patient Condition Patient Condition Patient is doing well, no complaints, stable vital signs, no apparent adverse anesthesia problems. No complications reported per nursing. D/C home per [facility] Criteria: PAPO Alan CRNA Mar 29, 2018 14:48
--- NOTE | 2018-03-29 15:32 | NUR ---
DR FRANCO ON FLOOR NEW VERBAL ORDERS RECEIVED SEE ORDER HX
--- NOTE | 2018-03-29 15:54 | Physical Therapy Evaluation ---
PT Evaluation-General Medical Diagnosis Admission Date Mar 28, 2018 at 08:10 Medical Diagnosis: Rectal CA Onset Date: Mar 28, 2018 Therapy Diagnosis Therapy Diagnosis: weakness; abn gait Height/Weight Height (Feet): 5 Height (Inches): 8.00 Weight (Pounds): 136 Weight (Ounces): 0.0 Precautions Precautions/Isolations: Fall Prevention, Standard Precautions Weight Bear Status Right Lower Extremity: Right Weight Bearing/Tolerated Left Lower Extremity: Left Weight Bearing/Tolerated Referral Physician: Parvin Reason for Referral: Evaluation/Treatment (encourage gait) Medical History Additional Medical History Hx of bladder CA Current History Pt admitted post colonoscopy which identified a rectal mass. He is post segmoid resection. Reviewed History: Yes Social History Home: Single Level Current Living Status: Spouse Entry Into Home: Stairs With Railing Prior/Core FIM Prior Level of Function Therapy Code Descriptions/Definitions Functional Sheldon Measure: 0=Not Assessed/NA 4=Minimal Assistance 1=Total Assistance 5=Supervision or Setup 2=Maximal Assistance 6=Modified Sheldon 3=Moderate Assistance 7=Complete Sheldon Therapy Quality Codes: 6 Independent with activity with or without an assistive device 5 Patient requires set up or clean up by helper. Patient completes activity by themselves 4 Supervision or touching assist (CGA). Vernon provide cues , steadying assist 3 The helper provides less than half the effort to complete the activity 2 The helper provides more than half the effort to complete the activity 1 Dependent. The helper does all the effort to complete an activity 7 Patient refused to complete or attempt activity 9 The patient did not perform the activity before the current illness or injury 88 Not attempted due to Medical conditions or safety concerns Functional Abilities and Goals: Independent: Patient completed the activities by him/herself, with or without an assistive device, with no assistance from a helper. Needed Some Help: Patient needed partial assistance from another person to complete activities. Dependent: A helper completed the activities for the patient. Unknown: Not Applicable: Bed Mobility: 7 Transfers (B,C,W/C) (FIM): 7 Gait: 7 Indoor Mobility (Ambulation): Independent Indep with functional mobility; drives PT Evaluation-Current Subjective Agrees to ambulation with encouragement. Pain Numeric Pain Scale: 6 Location: Incisional Location Body Site: Abdomen Pain Description: Stabbing Pt/Family Goals Home with when able. Objective Patient Orientation: Person, Place, Time, Situation Problem Solving: Fair Attachments: NG Tube, Drains, Delgado Catheter, IV ROM/Strength ROM Lower Extremities WNL Strength Lower Extremities WFL Integumentary/Posture Integumentary refer to nursing notes. Bowel Incontinence: No Bladder Incontinence: Delgado Cath Posture normal and symmetrical Neuromuscular (Tone, Coordination, Reflexes) WFL Sensory Vision: Functional Hearing: Functional Hand Dominance: Right Sensation Right Lower Extremit: Intact Sensation Left Lower Extremity: Intact Transfers Therapy Code Descriptions/Definitions Functional Sheldon Measure: 0=Not Assessed/NA 4=Minimal Assistance 1=Total Assistance 5=Supervision or Setup 2=Maximal Assistance 6=Modified Sheldon 3=Moderate Assistance 7=Complete Sheldon Transfers (B, C, W/C) (FIM): 3 Supine to/from Sit: 3 Sit to/from Stand: 4 (min assist to come to a stand) Gait Mode of Locomotion: Walk Anticipated Mode of Locomotion: Walk Gait (FIM): 2 Distance (FIM): 9=352-10 ft Distance: 60 ft Gait Level of Assist: 4 Gait Assistive Device: FWW Comments/Gait Description slow gait; slightly unsteady; guarded due to abdominal pain Balance Sitting Static: Good Sitting Dynamic: Good Standing Static: Fair Standing Dynamic: Fair Treatment Ambulated and up in chair post treatment with needs met and nurse present. Assessment/Needs Post sigmoid colon resection with discomfort with movement. Will benefit from PT to promote functional mobility to enhance his recovery process and increase strength to return home with his spouse. Rehab Potential: Good PT Shoe Repair Supervisor Goals Shoe Repair Supervisor Goals PT Shoe Repair Supervisor Goals Time Frame: Apr 05, 2018 Transfers (B,C,W/C) (FIM): 7 Gait (FIM): 6 Gait distance (FIM): 3=150 ft PT Plan Problem List Problem List: Activity Tolerance, Functional Strength, Safety, Balance, Gait, Transfer, Bed Mobility Treatment/Plan Treatment Plan: Continue Plan of Care Treatment Plan: Bed Mobility, Education, Functional Activity Giuseppe, Functional Strength, Gait, Safety, Therapeutic Exercise, Transfers Treatment Duration: Apr 05, 2018 Frequency: 6 times per week Estimated Hrs Per Day: .5 hour per day Patient and/or Family Agrees t: Yes Safety Risks/Education Patient Education: Transfer Techniques, Safety Issues Teaching Recipient: Patient Teaching Methods: Demonstration, Discussion Response to Teaching: Reinforcement Needed Time/GCodes Time In: 1450 Time Out: 1505 Total Billed Treatment Time: 15 Total Billed Treatment visit EVM 15 ALLYSSA VERMA PT Mar 29, 2018 15:54
--- NOTE | 2018-03-29 17:19 | NUR ---
TEXTILE CUTTING MACHINE OPERATOR CHANGES MADE BY THIS RN WITH WITNESS OF Camila SILVERIO RN. PT INFORMED OF CHANGES
[2018-03-29] MEDS: FUROSEMIDE 40 MG/4 ML INJ (LASIX) IVP SCH ×2 (17:41→23:22)
[2018-03-29] MEDS ORDERED: RT-ALBUTEROL SULF 2.5 MG/3 ML PRE-MIX VIAL INH PRN (19:15)
[2018-03-30] VITALS (15 sets, daily range): BP systolic 110–164; BP diastolic 66–97
[2018-03-30] MEDS: 1/2 NS W/KCL 20 MEQ/L 1,000 ML IV SCH ×4 (00:37→21:06)
[2018-03-30] MEDS: RT-ALBUTEROL SULF 2.5 MG/3 ML PRE-MIX VIAL INH SCH ×6 (02:43→22:44)
[2018-03-30] MEDS: ceFAZolin 2 GM IV Premixed 50 ML IV SCH ×3 (03:16→20:12)
[2018-03-30 03:17] LABS: BASOPHILS % (AUTO) 0 % (0-10); EOSINOPHILS % (AUTO) 0 % (0-10); HEMATOCRIT 29 % (40-54); HEMOGLOBIN 9.8 G/DL (13.3-17.7); LYMPHOCYTES # (AUTO) 0.9 X 10^3 (1.0-4.0); LYMPHOCYTES % (AUTO) 6 % (12-44); MEAN CORPUSCULAR HEMOGLOBIN 28 PG (25-34); MEAN CORPUSCULAR HGB CONC 34 G/DL (32-36); MEAN CORPUSCULAR VOLUME 84 FL (80-99); MEAN PLATELET VOLUME 9.5 FL (7.4-10.4); MONOCYTES # (AUTO) 1.3 X 10^3 (0.0-1.0); MONOCYTES % (AUTO) 9 % (0-12); NEUTROPHILS # (AUTO) 12.6 X 10^3 (1.8-7.8); NEUTROPHILS % (AUTO) 85 % (42-75); PLATELET COUNT 126 10^3/uL (130-400); RED CELL DISTRIBUTION WIDTH 14.5 % (10.0-14.5); WHITE BLOOD COUNT 14.8 10^3/uL (4.3-11.0)
[2018-03-30 03:30] LABS: BUN/CREATININE RATIO 12; CALCIUM 8.3 MG/DL (8.5-10.1); CARBON DIOXIDE 20 MMOL/L (21-32); CHLORIDE 106 MMOL/L (98-107); CREATININE SERUM 1.07 MG/DL (0.60-1.30); GFR ESTIMATED > 60; GLUCOSE 122 MG/DL (70-105); SODIUM 135 MMOL/L (135-145)
[2018-03-30 03:47] LABS: BAND NEUTROPHILS 16 %; BASOPHILS % (MANUAL) 0 %; EOSINOPHILS % (MANUAL) 0 %; LYMPHOCYTES % (MANUAL) 4 %; MONOCYTES % (MANUAL) 2 %; NEUTROPHILS % (MANUAL) 75 %; REACTIVE LYMPHOCYTES 3 %
[2018-03-30 03:48] LABS: ROULEAUX SLIGHT
[2018-03-30] MEDS: FUROSEMIDE 40 MG/4 ML INJ (LASIX) IVP SCH ×3 (05:34→17:55)
[2018-03-30] MEDS: metroNIDAZOLE 500MG/100ML IVPB 100 ML IV SCH ×3 (05:34→21:06)
--- NOTE | 2018-03-30 07:40 | Progress Note (SOAP) ---
Subjective Time Seen by a Provider: 07:37 Subjective/Events-last exam Patient feeling better today. Not much liquid out of the nasogastric tube. Patient not running any elevated temperature. White blood cell count 14,000 the same as yesterday. Abdomen still has some distention. No bowel sounds. Objective Exam Vital Signs Date Time Temp Pulse Resp B/P (MAP) Pulse Ox O2 Delivery O2 Flow Rate FiO2 03/30/18 06:56 96 Room Air 03/30/18 06:00 96 23 137/83 (101) 94 Room Air 03/30/18 05:38 22 03/30/18 05:00 106 23 128/66 (86) 94 Room Air 03/30/18 04:00 95 Room Air 03/30/18 04:00 100 20 127/77 (94) 94 Room Air 03/30/18 03:14 98.3 03/30/18 03:00 107 26 118/69 (85) 95 Room Air 03/30/18 02:43 94 Room Air 03/30/18 02:00 100 19 138/71 (93) 94 Room Air 03/30/18 01:00 101 03/30/18 01:00 96 21 121/77 (92) 94 Room Air 03/30/18 00:00 95 Room Air 03/30/18 00:00 97 23 110/75 (87) 92 Room Air 03/29/18 23:24 100.4 03/29/18 23:00 108 26 121/93 (102) 93 Room Air 03/29/18 22:01 93 Room Air 03/29/18 22:00 105 27 128/72 (90) 92 Room Air 03/29/18 21:00 110 28 139/98 (112) 93 Room Air 03/29/18 20:00 95 Room Air 03/29/18 20:00 107 29 145/73 (97) 93 Room Air 03/29/18 19:53 101.2 Room Air 03/29/18 19:11 93 Room Air 03/29/18 19:00 102 18 144/77 (99) 93 Room Air 03/29/18 19:00 102 03/29/18 18:44 100.1 03/29/18 18:07 22 03/29/18 18:04 100.9 03/29/18 18:00 108 30 131/70 (90) 95 Room Air 03/29/18 17:00 101 30 131/60 (83) 94 Room Air 03/29/18 16:35 95 Room Air 03/29/18 16:00 115 21 117/67 (84) 94 Room Air 03/29/18 15:00 115 28 139/71 (93) Room Air 03/29/18 14:45 92 Room Air 03/29/18 14:05 101.5 03/29/18 14:00 93 36 130/65 (86) 94 Room Air 03/29/18 13:00 106 03/29/18 13:00 115 38 117/92 (100) 95 Room Air 03/29/18 12:57 100.4 03/29/18 12:35 95 Room Air 03/29/18 12:00 117 31 126/74 (91) 93 Room Air 03/29/18 11:40 100.8 03/29/18 11:00 99 28 140/72 (94) 100 Room Air 03/29/18 10:56 93 Room Air 03/29/18 10:00 92 28 128/64 (85) 93 Room Air 03/29/18 09:00 111 19 115/66 (82) 96 Room Air 03/29/18 08:45 94 Room Air 03/29/18 08:00 114 34 117/53 (74) 93 Room Air I & O 03/30/18 07:00 Intake Total 1350 ml Output Total 3120 ml Balance -1770 ml Capillary Refill : General Appearance: No Apparent Distress, Thin HEENT: Normal ENT Inspection Neck: Full Range of Motion Respiratory: Lungs Clear, No Accessory Muscle Use, No Respiratory Distress Cardiovascular: Regular Rate, Rhythm, No Murmur Gastrointestinal: other (Normal bowel sounds) Results Lab Laboratory Tests 03/30/18 03:06 Laboratory Tests 03/30/18 03:06: White Blood Count 14.8H, Red Blood Count 3.47L, Hemoglobin 9.8L, Hematocrit 29L , Mean Corpuscular Volume 84, Mean Corpuscular Hemoglobin 28, Mean Corpuscular Hemoglobin Concent 34, Red Cell Distribution Width 14.5, Platelet Count 126L, Mean Platelet Volume 9.5, Neutrophils (%) (Auto) 85H, Lymphocytes (%) (Auto) 6L , Monocytes (%) (Auto) 9, Eosinophils (%) (Auto) 0, Basophils (%) (Auto) 0, Neutrophils # (Auto) 12.6H, Lymphocytes # (Auto) 0.9L, Monocytes # (Auto) 1.3H, Eosinophils # (Auto) 0.0, Basophils # (Auto) 0.0, Neutrophils % (Manual) 75, Lymphocytes % (Manual) 4, Monocytes % (Manual) 2, Eosinophils % (Manual) 0, Basophils % (Manual) 0, Band Neutrophils 16, Reactive Lymphocytes 3, Rouleau SLIGHT, Sodium Level 135, Potassium Level 4.0, Chloride Level 106, Carbon Dioxide Level 20L, Anion Gap 9, Blood Urea Nitrogen 13, Creatinine 1.07, Estimat Glomerular Filtration Rate > 60, BUN/Creatinine Ratio 12, Glucose Level 122H, Calcium Level 8.3L Assessment/Plan Assessment/Plan Assess & Plan/Chief Complaint Rectal cancer. Leukocytosis. . 03/30/18. Rectal cancer. Leukocytosis. Patient feeling better today. Patient able to walk and ready. No bowel sounds RENAN WILSON DO Mar 30, 2018 07:39
[2018-03-30] MEDS: SENNA W/DOCUSATE (SENOKOT S) TABLET PO SCH (08:05)
[2018-03-30] MEDS: PANTOPRAZOLE 40 MG (PROTONIX) VIAL IV SCH (08:05)
[2018-03-30] MEDS: ENOXAPARIN 30 MG/0.3 ML (LOVENOX) SYR SC SCH ×2 (08:05→21:06)
[2018-03-30] MEDS: ONDANSETRON 4 MG/2 ML (SDV) Z0FRAN IVP PRN (09:06)
--- NOTE | 2018-03-30 10:06 | Physical Therapy Daily Note ---
PT Daily Note-Current Subjective Wanting to get out of bed initially but after walking wanted to return to bed. Reluctantly agreed to sit up in the chair post treatment. Pain Numeric Pain Scale: 7 Location: Incisional Location Body Site: Abdomen Pain Description: Acute Mental Status Patient Orientation: Person, Place, Time, Situation Attachments: NG Tube, Drains, Delgado Catheter, IV Transfers Therapy Code Descriptions/Definitions Functional [place] Measure: 0=Not Assessed/NA 4=Minimal Assistance 1=Total Assistance 5=Supervision or Setup 2=Maximal Assistance 6=Modified [place] 3=Moderate Assistance 7=Complete [place] Therapy Quality Codes: 6 Independent with activity with or without an assistive device 5 Patient requires set up or clean up by helper. Patient completes activity by themselves 4 Supervision or touching assist (CGA). [place] provide cues , steadying assist 3 The helper provides less than half the effort to complete the activity 2 The helper provides more than half the effort to complete the activity 1 Dependent. The helper does all the effort to complete an activity 7 Patient refused to complete or attempt activity 9 The patient did not perform the activity before the current illness or injury 88 Not attempted due to Medical conditions or safety concerns Transfers (B, C, W/C) (FIM): 3 Supine to/from Sit: 3 (cues and training on log roll to decrease abdmonial exertion with sitting up) Sit to/from Stand: 4 (min assist and skilled cues to push up from the chair. ) Weight Bearing Right Lower Extremity: Right Weight Bearing/Tolerated Left Lower Extremity: Left Weight Bearing/Tolerated Gait Training Gait (FIM): 2 Distance: 60 ft x 1 and 80 ft x 1 Gait Level of Assist: 4 (CGA for safety) Gait Assistive Device: FWW slow gait with decreased step length; guarded due to abdominal pain. Exercises Seated Therapy Exercises: Ankle pumps, Long arc quads Seated Reps: 10 (to promote LE ROM and circulation) Treatments Up in chair post treatment, asked pt to sit up for at least 30 minutes and longer if he was able. Nursing notified. Assessment Current Status: Good Progress Increased gait distance this visit. Sore with movement. PT Snf Goals Snf Goals PT Snf Goals Time Frame: Apr 05, 2018 Transfers (B,C,W/C) (FIM): 7 Gait (FIM): 6 Gait distance (FIM): 3=150 ft PT Plan Problem List Problem List: Activity Tolerance, Functional Strength, Safety, Gait, Transfer, Bed Mobility Treatment/Plan Treatment Plan: Continue Plan of Care Treatment Plan: Bed Mobility, Education, Functional Activity Giuseppe, Functional Strength, Gait, Safety, Therapeutic Exercise, Transfers Treatment Duration: Apr 05, 2018 Frequency: 6 times per week Estimated Hrs Per Day: .5 hour per day Patient and/or Family Agrees t: Yes Safety Risks/Education Patient Education: Transfer Techniques Teaching Recipient: Patient Teaching Methods: Demonstration, Discussion Response to Teaching: Reinforcement Needed Time/GCodes Time In: 925 Time Out: 950 Total Billed Treatment Time: 25 Total Billed Treatment visit GT 15 FA 10 ALLYSSA VERMA PT Mar 30, 2018 10:06
--- NOTE | 2018-03-30 16:06 | NUR ---
Pt does by "Perry." Met pt's client relationship executive, Yair, at the entrance of ICU and accompanied him to the pt's room. Pt asked if I could help him and said his back was hurting. I empathetically listened and notified staff, who promptly responded and repositioned the pt in bed. Pt is Tera
--- NOTE | 2018-03-30 17:29 | Progress Note (SOAP) ---
Subjective Date Seen by a Provider: Mar 30, 2018 Time Seen by a Provider: 17:00 Subjective/Events-last exam doing well. pain controlled. ambulating well. mininimal NGT and LALI output. no fever/chills. Objective Exam Vital Signs Date Time Temp Pulse Resp B/P (MAP) Pulse Ox O2 Delivery O2 Flow Rate FiO2 03/30/18 16:00 114 27 164/97 (119) 94 Room Air 03/30/18 16:00 96 Room Air 03/30/18 15:04 94 Room Air 03/30/18 13:00 92 03/30/18 12:00 96 21 127/74 (91) 95 Room Air 03/30/18 12:00 96 Room Air 03/30/18 12:00 99.2 03/30/18 11:00 98 24 146/79 (101) 100 Room Air 03/30/18 10:54 97 Room Air 03/30/18 10:00 95 25 113/72 (86) 94 Room Air 03/30/18 09:00 94 25 140/86 (104) 95 Room Air 03/30/18 08:16 98.1 03/30/18 08:00 96 Room Air 03/30/18 08:00 105 26 147/82 (103) 94 Room Air 03/30/18 07:52 105 03/30/18 07:00 95 22 157/90 (112) 100 Room Air 03/30/18 06:56 96 Room Air 03/30/18 06:00 96 23 137/83 (101) 94 Room Air 03/30/18 05:38 22 03/30/18 05:00 106 23 128/66 (86) 94 Room Air 03/30/18 04:00 95 Room Air 03/30/18 04:00 100 20 127/77 (94) 94 Room Air 03/30/18 03:14 98.3 03/30/18 03:00 107 26 118/69 (85) 95 Room Air 03/30/18 02:43 94 Room Air 03/30/18 02:00 100 19 138/71 (93) 94 Room Air 03/30/18 01:00 101 03/30/18 01:00 96 21 121/77 (92) 94 Room Air 03/30/18 00:00 95 Room Air 03/30/18 00:00 97 23 110/75 (87) 92 Room Air 03/29/18 23:24 100.4 03/29/18 23:00 108 26 121/93 (102) 93 Room Air 03/29/18 22:01 93 Room Air 03/29/18 22:00 105 27 128/72 (90) 92 Room Air 03/29/18 21:00 110 28 139/98 (112) 93 Room Air 03/29/18 20:00 95 Room Air 03/29/18 20:00 107 29 145/73 (97) 93 Room Air 03/29/18 19:53 101.2 Room Air 03/29/18 19:11 93 Room Air 03/29/18 19:00 102 18 144/77 (99) 93 Room Air 03/29/18 19:00 102 03/29/18 18:44 100.1 03/29/18 18:07 22 03/29/18 18:04 100.9 03/29/18 18:00 108 30 131/70 (90) 95 Room Air I & O 03/30/18 07:00 Intake Total 1450 ml Output Total 3120 ml Balance -1670 ml Capillary Refill : General Appearance: No Apparent Distress HEENT: PERRL/EOMI Neck: Full Range of Motion Respiratory: Chest Non Tender, Normal Breath Sounds Cardiovascular: Regular Rate, Rhythm Gastrointestinal: soft, tenderness, other (incision clean/dry) Extremity: Normal Capillary Refill Neurologic/Psychiatric: Alert, Oriented x3 Skin: Normal Color Lymphatic: No Adenopathy Results Lab Laboratory Tests 03/30/18 03:06: White Blood Count 14.8H, Red Blood Count 3.47L, Hemoglobin 9.8L, Hematocrit 29L , Mean Corpuscular Volume 84, Mean Corpuscular Hemoglobin 28, Mean Corpuscular Hemoglobin Concent 34, Red Cell Distribution Width 14.5, Platelet Count 126L, Mean Platelet Volume 9.5, Neutrophils (%) (Auto) 85H, Lymphocytes (%) (Auto) 6L , Monocytes (%) (Auto) 9, Eosinophils (%) (Auto) 0, Basophils (%) (Auto) 0, Neutrophils # (Auto) 12.6H, Lymphocytes # (Auto) 0.9L, Monocytes # (Auto) 1.3H, Eosinophils # (Auto) 0.0, Basophils # (Auto) 0.0, Neutrophils % (Manual) 75, Lymphocytes % (Manual) 4, Monocytes % (Manual) 2, Eosinophils % (Manual) 0, Basophils % (Manual) 0, Band Neutrophils 16, Reactive Lymphocytes 3, Rouleau SLIGHT, Sodium Level 135, Potassium Level 4.0, Chloride Level 106, Carbon Dioxide Level 20L, Anion Gap 9, Blood Urea Nitrogen 13, Creatinine 1.07, Estimat Glomerular Filtration Rate > 60, BUN/Creatinine Ratio 12, Glucose Level 122H, Calcium Level 8.3L Assessment/Plan Assessment/Plan Assess & Plan/Chief Complaint s/p LAR for ca. increase ambulation. continue DVT prophylaxis. IS and breathing tx. D/C NGT and brooke. stay on ice chips. transfer to floor. ATTILA FRANCO MD Mar 30, 2018 17:29
--- NOTE | 2018-03-30 20:59 | NUR ---
N/G d/c at this time
[2018-03-31] VITALS: BP 117/83
[2018-03-31] MEDS: 1/2 NS W/KCL 20 MEQ/L 1,000 ML IV SCH ×4 (00:10→18:31)
[2018-03-31] MEDS: FUROSEMIDE 40 MG/4 ML INJ (LASIX) IVP SCH ×4 (00:11→18:31)
[2018-03-31] MEDS: RT-ALBUTEROL SULF 2.5 MG/3 ML PRE-MIX VIAL INH SCH ×5 (02:17→22:22)
[2018-03-31] MEDS: ceFAZolin 2 GM IV Premixed 50 ML IV SCH (03:38)
[2018-03-31 04:00] VITALS: BP 129/88
[2018-03-31 05:43] LABS: MEAN PLATELET VOLUME 9.5 FL (7.4-10.4); RED CELL DISTRIBUTION WIDTH 14.1 % (10.0-14.5); WHITE BLOOD COUNT 15.3 10^3/uL (4.3-11.0)
[2018-03-31] MEDS: metroNIDAZOLE 500MG/100ML IVPB 100 ML IV SCH (05:59)
[2018-03-31 06:04] LABS: BUN/CREATININE RATIO 18; CALCIUM 8.2 MG/DL (8.5-10.1); CARBON DIOXIDE 20 MMOL/L (21-32); CHLORIDE 102 MMOL/L (98-107); CREATININE SERUM 0.85 MG/DL (0.60-1.30); GFR ESTIMATED > 60; GLUCOSE 102 MG/DL (70-105); SODIUM 131 MMOL/L (135-145)
[2018-03-31 08:00] VITALS: BP 137/75
[2018-03-31] MEDS: ENOXAPARIN 30 MG/0.3 ML (LOVENOX) SYR SC SCH ×2 (08:50→19:24)
[2018-03-31] MEDS: SENNA W/DOCUSATE (SENOKOT S) TABLET PO SCH (08:51)
[2018-03-31] MEDS: PANTOPRAZOLE 40 MG (PROTONIX) VIAL IV SCH (08:51)
[2018-03-31] MEDS: ONDANSETRON 4 MG/2 ML (SDV) Z0FRAN IVP PRN (08:55)
[2018-03-31] MEDS: fentaNYL INJECTION 1,000 MCG in NS (IVPB) 80 ML IV SCH (10:29)
--- NOTE | 2018-03-31 10:30 | NUR ---
DR. FRANCO CALLED AND STATED TO DC OSULLIVAN CATH. MIDDLE ABD WITH RED INC. AREA AND WARM TO TOUCH. ABD. DISTENDED AND FIRM. IS ENCOURAGED Q2H W/A. OSULLIVAN CATH DC'D PER DR. FRANCO'S ORDERS.
[2018-03-31 10:48] LABS: BACTERIA,URINE NEGATIVE /HPF; BILIRUBIN,URINE NEGATIVE (NEGATIVE); CLARITY,URINE SLIGHTLY CLOUDY; COLOR,URINE AMBER; GLUCOSE, URINE (UA) NEGATIVE (NEGATIVE); KETONES,URINE 4+ (NEGATIVE); LEUKOCYTE ESTERASE ,URINE 2+ (NEGATIVE); NITRITE,URINE NEGATIVE (NEGATIVE); PH,URINE 5 (5-9); PROTEIN,URINE 3+ (NEGATIVE); UROBILINOGEN,URINE NORMAL (NORMAL)
[2018-03-31 10:49] LABS: RBC,URINE TNTC /HPF
[2018-03-31] MEDS ORDERED: PIPERACILLIN/TAZO 4.5 GM/NS 100 ML IV NR ×2 (11:00)
--- NOTE | 2018-03-31 11:08 | Physical Therapy Daily Note ---
PT Daily Note-Current Subjective Pt was up in recliner and agreed to PT. Reports he already walked this morning. Pain Numeric Pain Scale: 8 Location Body Site: Abdomen Mental Status Patient Orientation: Person, Place, Situation, Normal For Age Attachments: Delgado Catheter, IV Transfers Therapy Code Descriptions/Definitions Functional [place] Measure: 0=Not Assessed/NA 4=Minimal Assistance 1=Total Assistance 5=Supervision or Setup 2=Maximal Assistance 6=Modified [place] 3=Moderate Assistance 7=Complete [place] Therapy Quality Codes: 6 Independent with activity with or without an assistive device 5 Patient requires set up or clean up by helper. Patient completes activity by themselves 4 Supervision or touching assist (CGA). [place] provide cues , steadying assist 3 The helper provides less than half the effort to complete the activity 2 The helper provides more than half the effort to complete the activity 1 Dependent. The helper does all the effort to complete an activity 7 Patient refused to complete or attempt activity 9 The patient did not perform the activity before the current illness or injury 88 Not attempted due to Medical conditions or safety concerns Transfers (B, C, W/C) (FIM): 4 Sit to/from Stand: 4 Weight Bearing Right Lower Extremity: Right Weight Bearing/Tolerated Left Lower Extremity: Left Weight Bearing/Tolerated Gait Training Gait (FIM): 4 Distance (FIM): 3=150 ft Distance: 150' Gait Level of Assist: 4 Gait Persons Needed: 1 Gait Assistive Device: FWW Pt has small stride and step length. Pt gait speed is very slow due to pain. Assessment Current Status: Fair Progress Pt is able to sit<>stand from recliner to FWW with CGA for safety. Pt amb with CGA and FWW. Pt requested to return to room. Pt is up in recliner with all needs met. Pts pain IV is low and nurse was notified. PT [facility] Goals Promotion Officer Goals PT [facility] Goals Time Frame: Apr 05, 2018 Transfers (B,C,W/C) (FIM): 7 Gait (FIM): 6 Gait distance (FIM): 3=150 ft PT Plan Problem List Problem List: Activity Tolerance, Functional Strength, Safety, Balance, Gait, Transfer, Bed Mobility Treatment/Plan Treatment Plan: Continue Plan of Care Treatment Plan: Bed Mobility, Education, Functional Activity Giuseppe, Functional Strength, Gait, Safety, Therapeutic Exercise, Transfers Treatment Duration: Apr 05, 2018 Frequency: 6 times per week Estimated Hrs Per Day: .5 hour per day Patient and/or Family Agrees t: Yes Time/GCodes Time In: 940 Time Out: 953 Total Billed Treatment Time: 13 Total Billed Treatment 1 visit GT 13 min SHEBA PAK PT Mar 31, 2018 11:08
--- NOTE | 2018-03-31 13:22 | Progress Note (SOAP) ---
Subjective Time Seen by a Provider: 13:20 Subjective/Events-last exam Patient not feeling good this afternoon. Patient abdomen is distended and no bowel sounds. Patient have trouble voiding area CAT scan of the abdomen and pelvis ordered Objective Exam Vital Signs Date Time Temp Pulse Resp B/P (MAP) Pulse Ox O2 Delivery O2 Flow Rate FiO2 03/31/18 10:43 91 Room Air 03/31/18 08:00 98.9 104 18 137/75 (95) 94 Room Air 03/31/18 07:11 90 Room Air 03/31/18 04:00 98.4 104 19 129/88 (102) 94 Room Air 03/31/18 02:20 98 Room Air 03/31/18 00:10 98.8 03/31/18 00:00 101 20 117/83 (94) 93 Room Air 03/30/18 22:46 93 Room Air 03/30/18 20:00 99.9 03/30/18 20:00 110 28 154/82 (106) 95 Room Air 03/30/18 20:00 95 Room Air 03/30/18 18:51 93 Room Air 03/30/18 16:00 114 27 164/97 (119) 94 Room Air 03/30/18 16:00 96 Room Air 03/30/18 15:04 94 Room Air I & O 03/31/18 07:00 Intake Total 2440 ml Output Total 3530 ml Balance -1090 ml Capillary Refill : General Appearance: No Apparent Distress HEENT: Normal ENT Inspection Neck: Normal Inspection Cardiovascular: Regular Rate, Rhythm Gastrointestinal: other (Distended) Results Lab Laboratory Tests 03/31/18 05:34: White Blood Count 15.3H, Red Blood Count 3.50L, Hemoglobin 10.0L, Hematocrit 30L , Mean Corpuscular Volume 84, Mean Corpuscular Hemoglobin 29, Mean Corpuscular Hemoglobin Concent 34, Red Cell Distribution Width 14.1, Platelet Count 146, Mean Platelet Volume 9.5, Sodium Level 131L, Potassium Level 4.0, Chloride Level 102, Carbon Dioxide Level 20L, Anion Gap 9, Blood Urea Nitrogen 15, Creatinine 0.85, Estimat Glomerular Filtration Rate > 60, BUN/Creatinine Ratio 18, Glucose Level 102, Calcium Level 8.2L 03/31/18 10:44: Urine Color AMBERH, Urine Clarity SLIGHTLY CLOUDY, Urine pH 5, Urine Specific [place] 1.020, Urine Protein 3+H, Urine Glucose (UA) NEGATIVE, Urine Ketones 4+H , Urine Nitrite NEGATIVE, Urine Bilirubin NEGATIVE, Urine Urobilinogen NORMAL, Urine Leukocyte Esterase 2+H, Urine RBC (Auto) 5+H, Urine RBC TNTCH, Urine WBC 2 -5, Urine Squamous Epithelial Cells NONE, Urine Crystals NONE, Urine Bacteria NEGATIVE, Urine Casts NONE, Urine Mucus NEGATIVE, Urine Culture Indicated NO Assessment/Plan Assessment/Plan Assess & Plan/Chief Complaint Rectal cancer. Leukocytosis. . 03/30/18. Rectal cancer. Leukocytosis. Patient feeling better today. Patient able to walk and ready. No bowel sounds. . 03/31/18. Rectal cancer. Leukocytosis. Abdomen distended. Difficulty in urinating RENAN WILSON DO Mar 31, 2018 13:22
[2018-03-31] MEDS ORDERED: RECEIVED CONTRAST 20 ML VIAL IV SCH (13:30)
[2018-03-31] MEDS ORDERED: IOHEXOL 350 MG/ML 100 ML (OMNIPAQUE 350) VIAL IV ONE (13:30)
[2018-03-31] MEDS ORDERED: NS 100 ML (IVPB) BAG IV ONE (13:30)
--- NOTE | 2018-03-31 13:45 | Diagnostic Imaging Report ---
INDICATION: Fluid overload. Time of exam 1:28 PM Correlation is made with prior study from 03/28/2018. Left-sided line appears to have the tip overlying the left innominate vein, similar to prior. There is right convexity lower thoracic scoliotic curvature. Heart size is stable. NG tube has been removed. Areas of bibasilar atelectasis persists. There are small bilateral effusions on today's study. Mid and upper lung luna are clear. No pneumothorax is seen. IMPRESSION: Bibasilar subsegmental atelectasis and small bilateral effusions. Dictated by: Dictated on workstation # [id number]
[2018-03-31] MEDS ORDERED: LIDOCAINE 1% INJ 20 ML 20 ML VIAL ONE (13:49)
[2018-03-31] MEDS ORDERED: LIDOCAINE UROJET 2% GEL 10 ML PKG ONE (13:49)
[2018-03-31] MEDS ORDERED: LIDOCAINE 1% INJ 20 ML 20 ML VIAL INJ ONE (14:00)
--- NOTE | 2018-03-31 14:00 | NUR ---
OS[facility] CATH REINSERTED PER DR. FRANCO'S ORDER'S AFTER CT OF ABD. DONE. # 16 OSULL[facility] CATH INSERTED WITH 300 CC PINKISH YELLOW URINE NOTED. KAREEM. FAIR WITH SOME DISCOMFORT.
--- NOTE | 2018-03-31 14:09 | Diagnostic Imaging Report ---
PROCEDURE: CT abdomen and pelvis with contrast. TECHNIQUE: Multiple contiguous axial images were obtained through the abdomen and pelvis after administration of intravenous contrast. INDICATION: Abdominal distention, pain and drainage catheter of colonic resection earlier this week. There has been apparent interval resection and anastomosis at the lower sigmoid colon at the level of previous annular constricting soft tissue lesion. The colon proximal to that level is decompressed. A few bubbles of pelvic extraluminal mesenteric and anti-dependent of free air not unexpected given the recent surgery. There is a small amount of air within the urinary bladder lumen which may reflect recent instrumentation. The bladder wall was not appreciably thickened. The drain in the midline pelvis without an adjacent fluid collection. There is no identifiable abscess. There is trace pelvic free fluid presacral. Stomach is not pathologically distended however there is abnormal proximal small bowel dilatation with abnormal small bowel wall thickening and mucosal hyperemia at a segment of the jejunum anteromedial to the distal descending colon. However this does not appear to result in a transition in bowel caliber. This is of uncertain etiology and may be inflammatory as no identifiable thickening or pathology at that segment of small bowel is present on a preoperative CT performed one month earlier. No venous obstruction. No pneumatosis. The distal small bowel is decompressed. Small bowel transition in caliber is in the left lower quadrant in the pelvis. No identifiable cause confirmed. Small pleural effusions and dependent basilar atelectasis with a simple cyst in the right hepatic lobe. Gallbladder, bile ducts, spleen, adrenals, pancreas and unobstructed kidneys normal. IMPRESSION: Small bowel dilatation with distal small bowel and colonic decompression ileus versus partial obstruction. Short segmental thickening of the small bowel wall in the left lower quadrant without resultant obstruction is a new finding from the CT of one month ago and may be inflammatory but consider followup. Small amounts of extraluminal gas on a presumed postoperative basis. Air within the bladder likely post instrumental as the bladder wall was otherwise normal. No abscess or drainable fluid collection. Unobstructed normal urinary tracts with no biliary abnormality. Small pleural effusions and basilar atelectasis. Dictated by: Dictated on workstation # [id number]
--- NOTE | 2018-03-31 14:10 | NUR ---
DR. FRANCO OPENED MIDDLE ABD. WOUND AFTER USING LIDOCAINE TO NUMB AREA. AREA APPROX. 10 CM X 2 CM AND 3 CM DEEP. MOD AMT. BLOODY DRAINAGE NOTED. CLEANSED WOUND WITH SALINE AND CULTURE DONE TO WOUND AND SENT TO LAB. WOUND PACKED WITH GAUZE AND 4 X 4'S AND TAPE APPLIED. KAREEM. FAIR WITH DISCOMFORT NOTED.
[2018-03-31] MEDS: LORazepam INJ 2 MG/ML (ATIVAN) VIAL IVP PRN ×2 (14:16→19:45)
--- NOTE | 2018-03-31 14:19 | Progress Note (SOAP) ---
Subjective Date Seen by a Provider: Mar 31, 2018 Time Seen by a Provider: 14:00 Subjective/Events-last exam doing ok, increased abd wall pain near incision with redness/erythema, WBC count same but elevated. CT shows distended bladder and abd wall abscess. no fever/chills. Objective Exam Vital Signs Date Time Temp Pulse Resp B/P (MAP) Pulse Ox O2 Delivery O2 Flow Rate FiO2 03/31/18 10:43 91 Room Air 03/31/18 08:00 98.9 104 18 137/75 (95) 94 Room Air 03/31/18 07:11 90 Room Air 03/31/18 04:00 98.4 104 19 129/88 (102) 94 Room Air 03/31/18 02:20 98 Room Air 03/31/18 00:10 98.8 03/31/18 00:00 101 20 117/83 (94) 93 Room Air 03/30/18 22:46 93 Room Air 03/30/18 20:00 99.9 03/30/18 20:00 110 28 154/82 (106) 95 Room Air 03/30/18 20:00 95 Room Air 03/30/18 18:51 93 Room Air 03/30/18 16:00 114 27 164/97 (119) 94 Room Air 03/30/18 16:00 96 Room Air 03/30/18 15:04 94 Room Air I & O 03/31/18 07:00 Intake Total 2440 ml Output Total 3530 ml Balance -1090 ml Capillary Refill : General Appearance: No Apparent Distress HEENT: PERRL/EOMI Neck: Full Range of Motion Respiratory: Chest Non Tender, Decreased Breath Sounds Cardiovascular: Regular Rate, Rhythm Gastrointestinal: soft, tenderness, other (infraumbilical wound red/ erythmatous and fluctuance.) Extremity: Normal Capillary Refill Neurologic/Psychiatric: Alert, Oriented x3 Skin: Normal Color Lymphatic: No Adenopathy Results Lab Laboratory Tests 03/31/18 05:34: White Blood Count 15.3H, Red Blood Count 3.50L, Hemoglobin 10.0L, Hematocrit 30L , Mean Corpuscular Volume 84, Mean Corpuscular Hemoglobin 29, Mean Corpuscular Hemoglobin Concent 34, Red Cell Distribution Width 14.1, Platelet Count 146, Mean Platelet Volume 9.5, Sodium Level 131L, Potassium Level 4.0, Chloride Level 102, Carbon Dioxide Level 20L, Anion Gap 9, Blood Urea Nitrogen 15, Creatinine 0.85, Estimat Glomerular Filtration Rate > 60, BUN/Creatinine Ratio 18, Glucose Level 102, Calcium Level 8.2L 03/31/18 10:44: Urine Color AMBERH, Urine Clarity SLIGHTLY CLOUDY, Urine pH 5, Urine Specific [place] 1.020, Urine Protein 3+H, Urine Glucose (UA) NEGATIVE, Urine Ketones 4+H , Urine Nitrite NEGATIVE, Urine Bilirubin NEGATIVE, Urine Urobilinogen NORMAL, Urine Leukocyte Esterase 2+H, Urine RBC (Auto) 5+H, Urine RBC TNTCH, Urine WBC 2 -5, Urine Squamous Epithelial Cells NONE, Urine Crystals NONE, Urine Bacteria NEGATIVE, Urine Casts NONE, Urine Mucus NEGATIVE, Urine Culture Indicated NO Assessment/Plan Assessment/Plan Assess & Plan/Chief Complaint s/p LAR for ca. increase ambulation. continue DVT prophylaxis. IS and breathing tx. patient has recurrent urinary retention and we will keep brooke in for now. abscess abd wall. will proceed with opening of wound and pack wet to dry BID. start zosyn and await cultures. await more bowel fxn before starting clear liquids. ATTILA FRANCO MD Mar 31, 2018 14:19
[2018-03-31 15:19] VITALS: BP 122/66
[2018-03-31 18:00] LABS: HEMOGLOBIN 9.6 G/DL (13.3-17.7); MEAN PLATELET VOLUME 9.8 FL (7.4-10.4); RED CELL DISTRIBUTION WIDTH 14.3 % (10.0-14.5)
[2018-03-31] MEDS: PIPERACILLIN/TAZOBACTAM (BULK) 4.5 GM in NS (IVPB) 100 ML IV SCH (18:31)
[2018-03-31] MEDS: ACETAMINOPHEN 325 MG TABLET PO PRN (19:45)
[2018-03-31 19:57] VITALS: BP 128/73
[2018-03-31 23:03] VITALS: BP 130/71
[2018-04-01] MEDS: PIPERACILLIN/TAZOBACTAM (BULK) 4.5 GM in NS (IVPB) 100 ML IV SCH ×4 (00:08→23:58)
[2018-04-01] MEDS: FUROSEMIDE 40 MG/4 ML INJ (LASIX) IVP SCH ×5 (00:08→23:58)
[2018-04-01] MEDS: RT-ALBUTEROL SULF 2.5 MG/3 ML PRE-MIX VIAL INH SCH ×6 (01:48→21:08)
[2018-04-01] MEDS: 1/2 NS W/KCL 20 MEQ/L 1,000 ML IV SCH (04:13)
[2018-04-01 04:14] VITALS: BP 120/66
[2018-04-01 05:24] LABS: HEMOGLOBIN 8.7 G/DL (13.3-17.7); MEAN PLATELET VOLUME 9.3 FL (7.4-10.4); RED CELL DISTRIBUTION WIDTH 14.3 % (10.0-14.5); WHITE BLOOD COUNT 11.2 10^3/uL (4.3-11.0)
[2018-04-01 05:43] LABS: BUN/CREATININE RATIO 20; CALCIUM 7.9 MG/DL (8.5-10.1); CARBON DIOXIDE 20 MMOL/L (21-32); CHLORIDE 100 MMOL/L (98-107); CREATININE SERUM 0.91 MG/DL (0.60-1.30); GFR ESTIMATED > 60; GLUCOSE 84 MG/DL (70-105); SODIUM 130 MMOL/L (135-145)
[2018-04-01 08:00] VITALS: BP 120/81
[2018-04-01] MEDS: PANTOPRAZOLE 40 MG (PROTONIX) VIAL IV SCH (09:04)
[2018-04-01] MEDS: ENOXAPARIN 30 MG/0.3 ML (LOVENOX) SYR SC SCH ×2 (09:04→20:14)
[2018-04-01] MEDS: SENNA W/DOCUSATE (SENOKOT S) TABLET PO SCH (09:04)
[2018-04-01] MEDS: oxyCODONE 5 MG/5 ML ORAL SOLN (roxiCODONE) 5 ML UDC PO PRN ×3 (09:52→20:25)
[2018-04-01] MEDS: METOCLOPRAMIDE INJ 10 MG/2 ML (REGLAN) IVP PRN ×2 (09:52→17:11)
--- NOTE | 2018-04-01 11:54 | Physical Therapy Daily Note ---
PT Daily Note-Current Subjective Pt reports he just wants to go to bed, but agreeable to PT treatment first Pain Numeric Pain Scale: 6 Location Body Site: Abdomen Comment: improved with activity per pt report Appearance At beginning of session, Pt sitting up in chair with eyes closed, but arousable , present At end of session, pt in bed with call light within reach and present Transfers Therapy Code Descriptions/Definitions Functional [place] Measure: 0=Not Assessed/NA 4=Minimal Assistance 1=Total Assistance 5=Supervision or Setup 2=Maximal Assistance 6=Modified [place] 3=Moderate Assistance 7=Complete [place] Therapy Quality Codes: 6 Independent with activity with or without an assistive device 5 Patient requires set up or clean up by helper. Patient completes activity by themselves 4 Supervision or touching assist (CGA). [place] provide cues , steadying assist 3 The helper provides less than half the effort to complete the activity 2 The helper provides more than half the effort to complete the activity 1 Dependent. The helper does all the effort to complete an activity 7 Patient refused to complete or attempt activity 9 The patient did not perform the activity before the current illness or injury 88 Not attempted due to Medical conditions or safety concerns Transfers (B, C, W/C) (FIM): 5 Scootin Rollin Supine to/from Sit: 4 (min A with LE's) Sit to/from Stand: 5 Bed to/from Chair: 5 Weight Bearing Right Lower Extremity: Right Weight Bearing/Tolerated Left Lower Extremity: Left Weight Bearing/Tolerated Gait Training Gait (FIM): 2 Distance (FIM): 1=619-99 ft Distance: 100 Gait Level of Assist: 5 Gait Persons Needed: 1 Gait Assistive Device: FWW slow speed, decreased step height and length, slightly improved with instruction Treatments gait, transfer, bed mobility, safety Assessment Current Status: Good Progress PT Magnet Placer Goals Magnet Placer Goals PT Residential Goals Time Frame: Apr 05, 2018 Transfers (B,C,W/C) (FIM): 7 Gait (FIM): 6 Gait distance (FIM): 3=150 ft PT Plan Problem List Problem List: Activity Tolerance, Functional Strength, Safety, Gait, Transfer, Bed Mobility Treatment/Plan Treatment Plan: Continue Plan of Care Treatment Plan: Bed Mobility, Education, Functional Activity Giuseppe, Functional Strength, Gait, Safety, Therapeutic Exercise, Transfers Treatment Duration: Apr 05, 2018 Frequency: 6 times per week Estimated Hrs Per Day: .5 hour per day Patient and/or Family Agrees t: Yes Safety Risks/Education Patient Education: Gait Training, Transfer Techniques, Correct Positioning, Safety Issues Teaching Recipient: Patient Teaching Methods: Discussion Response to Teaching: Verbalize Understanding, Return Demonstration Time/GCodes Time In: 1025 Time Out: 1050 Total Billed Treatment Time: 25 Total Billed Treatment 1 visit GT 15' FA 10' NEIL SELLERS PTA Apr 01, 2018 11:54
[2018-04-01 12:00] VITALS: BP 123/73
[2018-04-01] MEDS ORDERED: DIAZEPAM 2 MG (VALIUM) TAB PO SCH (12:27)
[2018-04-01] MEDS ORDERED: FINASTERIDE (PROSCAR) 5 MG TAB PO SCH (12:28)
--- NOTE | 2018-04-01 12:28 | Progress Note-Hospitalist ---
Subjective HPI/CC On Admission Date Seen by Provider: Apr 01, 2018 Time Seen by Provider: 11:45 Subjective/Events-last exam Patient doing well Restarting home meds Depression noted Labs noted Pain is controlled Using incentive spirometer Review of Systems Gastrointestinal: Abdominal Pain Objective Exam Vital Signs Vital Signs Date Time Temp Pulse Resp B/P (MAP) Pulse Ox O2 Delivery O2 Flow Rate FiO2 04/01/18 10:58 94 Nasal Cannula 1.00 04/01/18 08:00 97.6 80 20 120/81 (94) Capillary Refill : General Appearance: No Apparent Distress, WD/WN, Anxious, Chronically ill, Thin HEENT: PERRL/EOMI, Pharynx Normal Neck: Full Range of Motion Respiratory: Chest Non Tender, Lungs Clear, Normal Breath Sounds, No Accessory Muscle Use, No Respiratory Distress, Decreased Breath Sounds Cardiovascular: Regular Rate, Rhythm, No Edema, No Gallop, No JVD, No Murmur, Normal Peripheral Pulses Gastrointestinal: Tenderness Back: Normal Inspection, No CVA Tenderness, No Vertebral Tenderness Extremity: Normal Capillary Refill Neurologic/Psychiatric: Alert, Oriented x3 Skin: Normal Color, Warm/Dry Lymphatic: No Adenopathy Results/Procedures Lab Laboratory Tests 03/31/18 17:50 04/01/18 05:10 Patient resulted labs reviewed. Assessment/Plan Assessment and Plan Assess & Plan/Chief Complaint Assessment: Status post rectal cancer resection History of bladder cancer Urinary retention acute on chronic maintained on Delgado catheter Anemia Low-grade fever Leukocytosis Depression Hyponatremia Plan: Home meds Maintain Delgado Monitor labs Diagnosis/Problems Diagnosis/Problems (1) Ileus following gastrointestinal surgery Status: Acute (2) Rectal cancer Status: Acute (3) Urinary retention Status: Acute (4) Leukocytosis Status: Acute Qualifiers: Leukocytosis type: leukemoid reaction Qualified Codes: D72.823 - Leukemoid reaction (5) Fever, low grade Status: Acute (6) Hyponatremia Status: Acute (7) Anemia Status: Chronic Qualifiers: Anemia type: unspecified type Qualified Codes: D64.9 - Anemia, unspecified (8) Depression Status: Chronic Qualifiers: Depression Type: unspecified Qualified Codes: F32.9 - Major depressive disorder, single episode, unspecified JOSÉ RAE DO Apr 01, 2018 12:28
[2018-04-01] MEDS ORDERED: SERTRALINE 50 MG (ZOLOFT) TABLET PO SCH (12:29)
[2018-04-01] MEDS ORDERED: PATIENT MAY USE OWN MEDS, ALL MC SCH (12:45)
[2018-04-01] MEDS ORDERED: GABAPENTIN 300 MG (NEURONTIN) CAP PO SCH (13:00)
--- NOTE | 2018-04-01 13:01 | Progress Note (SOAP) ---
Subjective Date Seen by a Provider: Apr 01, 2018 Time Seen by a Provider: 12:45 Subjective/Events-last exam doing better today. much less abd distention and pain. open wound clean, no necrosis or purulent drainage. no nausea/vomiting. has bowel sounds but not BM/ flatus yet. Objective Exam Vital Signs Date Time Temp Pulse Resp B/P (MAP) Pulse Ox O2 Delivery O2 Flow Rate FiO2 04/01/18 10:58 94 Nasal Cannula 1.00 04/01/18 08:00 97.6 80 20 120/81 (94) 92 Nasal Cannula 1.00 04/01/18 07:13 95 Nasal Cannula 1.00 04/01/18 04:14 98.1 95 20 120/66 (84) 96 Nasal Cannula 1.00 04/01/18 01:48 93 Nasal Cannula 1.00 03/31/18 23:03 98.7 106 20 130/71 (90) 96 Nasal Cannula 1.00 03/31/18 22:22 93 Nasal Cannula 1.00 03/31/18 20:40 98.7 03/31/18 20:00 Nasal Cannula 1.00 03/31/18 19:57 100.4 117 18 128/73 (91) 96 Room Air 03/31/18 19:45 100.4 03/31/18 18:50 89 Room Air 03/31/18 15:19 97.8 104 18 122/66 (84) 93 Room Air I & O 04/01/18 07:00 Intake Total 2250 ml Output Total 2050 ml Balance 200 ml Capillary Refill : General Appearance: No Apparent Distress HEENT: PERRL/EOMI Neck: Full Range of Motion Respiratory: Chest Non Tender, Decreased Breath Sounds Cardiovascular: Regular Rate, Rhythm Gastrointestinal: normal bowel sounds Extremity: Normal Capillary Refill Neurologic/Psychiatric: Alert, Oriented x3 Skin: Normal Color Lymphatic: No Adenopathy Results Lab Laboratory Tests 03/31/18 17:50: White Blood Count 14.0H, Red Blood Count 3.41L, Hemoglobin 9.6L, Hematocrit 29L , Mean Corpuscular Volume 84, Mean Corpuscular Hemoglobin 28, Mean Corpuscular Hemoglobin Concent 34, Red Cell Distribution Width 14.3, Platelet Count 156, Mean Platelet Volume 9.8 04/01/18 05:10: White Blood Count 11.2H, Red Blood Count 3.13L, Hemoglobin 8.7L, Hematocrit 27L , Mean Corpuscular Volume 85, Mean Corpuscular Hemoglobin 28, Mean Corpuscular Hemoglobin Concent 33, Red Cell Distribution Width 14.3, Platelet Count 170, Mean Platelet Volume 9.3, Sodium Level 130L, Potassium Level 4.0, Chloride Level 100, Carbon Dioxide Level 20L, Anion Gap 10, Blood Urea Nitrogen 18, Creatinine 0.91, Estimat Glomerular Filtration Rate > 60, BUN/Creatinine Ratio 20, Glucose Level 84, Calcium Level 7.9L Assessment/Plan Assessment/Plan Assess & Plan/Chief Complaint s/p LAR for ca. increase ambulation. ambulate in halls at least BID. continue DVT prophylaxis. IS and breathing tx. patient has recurrent urinary retention and we will keep brooke in for now. abscess abd wall s/p incision and drainage, pack wet to dry BID. start zosyn and await cultures. WBC improving and patient afebrile. await more bowel fxn before starting clear liquids. ATTILA FRANCO MD Apr 01, 2018 13:01
[2018-04-01] MEDS: DIAZEPAM 2 MG (VALIUM) TAB PO SCH (13:26)
[2018-04-01] MEDS: SERTRALINE 50 MG (ZOLOFT) TABLET PO SCH (13:27)
[2018-04-01] MEDS: GABAPENTIN 300 MG (NEURONTIN) CAP PO SCH ×2 (13:27→20:14)
[2018-04-01] MEDS: NS IV 1000 ML 1,000 ML IV SCH (13:38)
[2018-04-01] MEDS ORDERED: NS 1000 ML IV BAG IV SCH (14:00)
[2018-04-01 15:35] VITALS: BP 133/80
[2018-04-01] MEDS: fentaNYL INJECTION 1,000 MCG in NS (IVPB) 80 ML IV SCH (16:52)
[2018-04-01 19:11] VITALS: BP 139/78
[2018-04-01 23:05] VITALS: BP 131/79
[2018-04-02] MEDS: oxyCODONE 5 MG/5 ML ORAL SOLN (roxiCODONE) 5 ML UDC PO PRN ×3 (01:02→13:28)
[2018-04-02] MEDS: RT-ALBUTEROL SULF 2.5 MG/3 ML PRE-MIX VIAL INH SCH ×6 (02:23→22:23)
[2018-04-02] MEDS: NS IV 1000 ML 1,000 ML IV SCH ×3 (02:59→16:53)
[2018-04-02 03:03] VITALS: BP 123/77
[2018-04-02 05:54] LABS: MEAN PLATELET VOLUME 9.3 FL (7.4-10.4); RED CELL DISTRIBUTION WIDTH 14.1 % (10.0-14.5); WHITE BLOOD COUNT 8.9 10^3/uL (4.3-11.0)
[2018-04-02 06:15] LABS: BUN/CREATININE RATIO 25; CARBON DIOXIDE 21 MMOL/L (21-32); CHLORIDE 101 MMOL/L (98-107); CREATININE SERUM 0.83 MG/DL (0.60-1.30); GFR ESTIMATED > 60; GLUCOSE 77 MG/DL (70-105); POTASSIUM 3.8 MMOL/L (3.6-5.0); SODIUM 132 MMOL/L (135-145)
[2018-04-02] MEDS: FUROSEMIDE 40 MG/4 ML INJ (LASIX) IVP SCH ×4 (06:36→23:34)
[2018-04-02 08:00] VITALS: BP 130/88
[2018-04-02] MEDS: PIPERACILLIN/TAZOBACTAM (BULK) 4.5 GM in NS (IVPB) 100 ML IV SCH ×2 (08:45→16:53)
[2018-04-02] MEDS: DIAZEPAM 2 MG (VALIUM) TAB PO SCH ×2 (08:45→19:52)
[2018-04-02] MEDS: SERTRALINE 50 MG (ZOLOFT) TABLET PO SCH (08:46)
[2018-04-02] MEDS: GABAPENTIN 300 MG (NEURONTIN) CAP PO SCH ×3 (08:46→19:44)
[2018-04-02] MEDS: SENNA W/DOCUSATE (SENOKOT S) TABLET PO SCH (08:47)
[2018-04-02] MEDS: ENOXAPARIN 30 MG/0.3 ML (LOVENOX) SYR SC SCH ×2 (08:47→19:52)
[2018-04-02] MEDS: PANTOPRAZOLE 40 MG (PROTONIX) VIAL IV SCH (08:47)
[2018-04-02] MEDS: FINASTERIDE (PROSCAR) 5 MG TAB PO SCH (08:51)
--- NOTE | 2018-04-02 10:38 | Progress Note (SOAP) ---
Subjective Date Seen by a Provider: Apr 02, 2018 Time Seen by a Provider: 10:30 Subjective/Events-last exam doing well. pain controlled. some confusion overnight however most likely pain medication induced. no fever/chills. WBC normal. Objective Exam Vital Signs Date Time Temp Pulse Resp B/P (MAP) Pulse Ox O2 Delivery O2 Flow Rate FiO2 04/02/18 08:05 Room Air 04/02/18 08:00 98.8 106 18 130/88 (102) 97 Nasal Cannula 2.00 04/02/18 03:03 99.2 109 20 123/77 (92) 97 Nasal Cannula 2.00 04/02/18 02:23 97 Nasal Cannula 2.00 04/01/18 23:05 99.8 107 16 131/79 (96) 97 Room Air 04/01/18 21:08 88 Room Air 04/01/18 20:57 Room Air 04/01/18 19:11 99.2 106 18 139/78 (98) 93 Room Air 04/01/18 15:35 98.8 106 18 133/80 (97) 97 Nasal Cannula 1.00 04/01/18 15:06 Nasal Cannula 1.00 04/01/18 12:00 98.2 101 20 123/73 (90) 96 Nasal Cannula 1.00 04/01/18 10:58 94 Nasal Cannula 1.00 I & O 04/02/18 07:00 Intake Total 1370 ml Output Total 1760 ml Balance -390 ml Capillary Refill : General Appearance: No Apparent Distress HEENT: PERRL/EOMI Neck: Full Range of Motion Respiratory: Chest Non Tender, Lungs Clear, Decreased Breath Sounds Cardiovascular: Regular Rate, Rhythm Gastrointestinal: normal bowel sounds, soft, other (open wound clean with granulation bed) Extremity: Normal Capillary Refill Neurologic/Psychiatric: Alert, Oriented x3 Skin: Normal Color Lymphatic: No Adenopathy Results Lab Laboratory Tests 04/02/18 05:40: White Blood Count 8.9, Red Blood Count 3.20L, Hemoglobin 9.0L, Hematocrit 27L, Mean Corpuscular Volume 85, Mean Corpuscular Hemoglobin 28, Mean Corpuscular Hemoglobin Concent 33, Red Cell Distribution Width 14.1, Platelet Count 167, Mean Platelet Volume 9.3, Sodium Level 132L, Potassium Level 3.8, Chloride Level 101, Carbon Dioxide Level 21, Anion Gap 10, Blood Urea Nitrogen 21H, Creatinine 0.83, Estimat Glomerular Filtration Rate > 60, BUN/Creatinine Ratio 25, Glucose Level 77, Calcium Level 8.0L Microbiology 03/31/18 Gram Stain - Final, Resulted 03/31/18 Anaerobic Culture, Resulted Pending 03/31/18 Wound Culture - Preliminary, Resulted Pseudomonas aeruginosa Assessment/Plan Assessment/Plan Assess & Plan/Chief Complaint s/p LAR for ca. increase ambulation. ambulate in halls at least BID. continue DVT prophylaxis. IS and breathing tx. patient has recurrent urinary retention and we will keep brooke in for now. abscess abd wall s/p incision and drainage, pack wet to dry BID. start zosyn. culture + pseudomonas a. WBC normal and patient afebrile. start clear liquids. ATTILA FRANCO MD Apr 02, 2018 10:38
--- NOTE | 2018-04-02 10:44 | NUR ---
DR FRANCO CALLED NEW ORDERS RECEIVED. CLEAR LIQUID DIET, D/C FENTANYL CUSTOMER ASSISTANCE ASSOCIATE, AND GIVE FENTANYL 50MCQ IV EVERY 2 HOURS PRN SEVERE PAIN. ORDERS READ BACK /ORDERED.
[2018-04-02] MEDS ORDERED: LIDOCAINE 1% INJ 20 ML 20 ML VIAL ONE (11:18)
[2018-04-02 12:00] VITALS: BP 134/72
[2018-04-02] MEDS: METOCLOPRAMIDE INJ 10 MG/2 ML (REGLAN) IVP SCH ×3 (12:14→23:34)
[2018-04-02] MEDS: fentaNYL INJECTION 100 MCG/2 ML AMP IVP PRN ×2 (12:15→15:30)
--- NOTE | 2018-04-02 13:58 | Progress Note-Hospitalist ---
Progress Note Progress Notes/Assess & Plan Date Seen 04/02/18 Time Seen by Provider: 13:56 Assessment & Plan The patient is an 82-year-old white male who had rectal cancer surgery on 03/28. He reports that he is coming along postoperatively and has been walking with assistance. He reports that he was unable to urinate and had his Delgado catheter replaced. His pain level as tolerable. Physical exam: We have a slender alert 82-year-old male. Lungs are clear to auscultation. CV is regular without murmur. Extremities show no pedal edema. Impression: Status post resection rectal carcinoma. Plan: Continue and increase physical activity. RAAD FRIEND MD Apr 02, 2018 13:58
--- NOTE | 2018-04-02 13:58 | NUR ---
1145 DR FRANCO IN TO SEE PATIENT, INCISION AND DRAINAGE DONE AT BEDSIDE BY DR FRANCO, DRESSING CHANGED BY DR FRANCO. PT TOLERATED WELL. NEW ORDERS RECEIVED SEE ORDER HX.
--- NOTE | 2018-04-02 14:00 | NUR ---
FENTANYL D/C 50 ML WASTED BY THIS RN WITH WITNESS OF Camila DOWNS SUPERVISING RN.
[2018-04-02 15:56] VITALS: BP 129/73
[2018-04-02 19:40] VITALS: BP 116/69
[2018-04-03 00:33] VITALS: BP 125/60
[2018-04-03] MEDS: PIPERACILLIN/TAZOBACTAM (BULK) 4.5 GM in NS (IVPB) 100 ML IV SCH ×3 (00:36→17:50)
[2018-04-03] MEDS: RT-ALBUTEROL SULF 2.5 MG/3 ML PRE-MIX VIAL INH SCH ×3 (02:01→22:32)
[2018-04-03] MEDS: METOCLOPRAMIDE INJ 10 MG/2 ML (REGLAN) IVP SCH ×3 (05:43→17:50)
[2018-04-03] MEDS: FUROSEMIDE 40 MG/4 ML INJ (LASIX) IVP SCH ×3 (05:44→17:50)
[2018-04-03] MEDS: NS IV 1000 ML 1,000 ML IV SCH ×2 (06:25→17:49)
--- NOTE | 2018-04-03 07:54 | Progress Note (SOAP) ---
Subjective Time Seen by a Provider: 07:52 Subjective/Events-last exam Patient feeling better today. Patient not running any temperature. Patient not passing any gas. Patient abdomen is distended. Objective Exam Vital Signs Date Time Temp Pulse Resp B/P (MAP) Pulse Ox O2 Delivery O2 Flow Rate FiO2 04/03/18 02:02 94 Nasal Cannula 2.00 04/03/18 00:33 99.4 88 22 125/60 (81) 93 Room Air 04/02/18 22:23 97 Nasal Cannula 2.00 04/02/18 19:45 Room Air 04/02/18 19:40 98.8 103 18 116/69 (85) 94 Room Air 04/02/18 19:04 88 Room Air 04/02/18 15:56 98.5 101 20 129/73 (91) 93 Room Air 04/02/18 14:02 91 Room Air 04/02/18 12:00 98.0 102 18 134/72 (92) 97 Nasal Cannula 2.00 04/02/18 08:05 Room Air 04/02/18 08:00 98.8 106 18 130/88 (102) 97 Nasal Cannula 2.00 I & O 04/03/18 07:00 Intake Total 1730 ml Output Total 1780 ml Balance -50 ml Capillary Refill : General Appearance: No Apparent Distress, Thin HEENT: Normal ENT Inspection Neck: Normal Inspection, Non Tender Respiratory: Lungs Clear, No Accessory Muscle Use, No Respiratory Distress Cardiovascular: Regular Rate, Rhythm, No Murmur Gastrointestinal: distended, other (No bowel sounds) Results Lab Microbiology 03/31/18 Gram Stain - Final, Resulted 03/31/18 Anaerobic Culture, Resulted Pending 03/31/18 Wound Culture - Preliminary, Resulted Pseudomonas aeruginosa Assessment/Plan Assessment/Plan Assess & Plan/Chief Complaint Rectal cancer. Leukocytosis. . 03/30/18. Rectal cancer. Leukocytosis. Patient feeling better today. Patient able to walk and ready. No bowel sounds. . 03/31/18. Rectal cancer. Leukocytosis. Abdomen distended. Difficulty in urinating. . 04/03/18. Rectal cancer. Psychosis resolved. Abdomen still distended. Patient has a Delgado catheter in RENAN WILSON DO Apr 03, 2018 07:54
[2018-04-03 08:00] VITALS: BP 126/69
[2018-04-03] MEDS: GABAPENTIN 300 MG (NEURONTIN) CAP PO SCH ×3 (08:17→21:14)
[2018-04-03] MEDS: FINASTERIDE (PROSCAR) 5 MG TAB PO SCH (08:17)
[2018-04-03] MEDS: SERTRALINE 50 MG (ZOLOFT) TABLET PO SCH (08:18)
[2018-04-03] MEDS: fentaNYL INJECTION 100 MCG/2 ML AMP IVP PRN ×3 (08:32→13:59)
[2018-04-03] MEDS: ENOXAPARIN 30 MG/0.3 ML (LOVENOX) SYR SC SCH ×2 (08:32→21:13)
[2018-04-03] MEDS: PANTOPRAZOLE 40 MG (PROTONIX) VIAL IV SCH (08:33)
[2018-04-03] MEDS: DIAZEPAM 2 MG (VALIUM) TAB PO SCH ×2 (08:36→21:14)
[2018-04-03] MEDS: SENNA W/DOCUSATE (SENOKOT S) TABLET PO SCH (08:38)
[2018-04-03 09:44] LABS: HEMOGLOBIN 8.8 G/DL (13.3-17.7); MEAN PLATELET VOLUME 9.5 FL (7.4-10.4); RED CELL DISTRIBUTION WIDTH 14.3 % (10.0-14.5); WHITE BLOOD COUNT 7.5 10^3/uL (4.3-11.0)
[2018-04-03 10:03] LABS: BUN/CREATININE RATIO 21; CALCIUM 8.2 MG/DL (8.5-10.1); CARBON DIOXIDE 21 MMOL/L (21-32); CHLORIDE 101 MMOL/L (98-107); CREATININE SERUM 0.85 MG/DL (0.60-1.30); GFR ESTIMATED > 60; GLUCOSE 97 MG/DL (70-105); POTASSIUM 3.5 MMOL/L (3.6-5.0); SODIUM 132 MMOL/L (135-145)
[2018-04-03] MEDS: oxyCODONE 5 MG/5 ML ORAL SOLN (roxiCODONE) 5 ML UDC PO PRN (11:23)
--- NOTE | 2018-04-03 11:24 | Physical Therapy Daily Note ---
PT Daily Note-Current Subjective Pt in bed and agrees to PT. Pain Numeric Pain Scale: 3 Location Body Site: Abdomen Mental Status Patient Orientation: Person, Place, Situation, Normal For Age Attachments: Oxygen (1L), Delgado Catheter, IV Transfers Therapy Code Descriptions/Definitions Functional [place] Measure: 0=Not Assessed/NA 4=Minimal Assistance 1=Total Assistance 5=Supervision or Setup 2=Maximal Assistance 6=Modified [place] 3=Moderate Assistance 7=Complete [place] Therapy Quality Codes: 6 Independent with activity with or without an assistive device 5 Patient requires set up or clean up by helper. Patient completes activity by themselves 4 Supervision or touching assist (CGA). [place] provide cues , steadying assist 3 The helper provides less than half the effort to complete the activity 2 The helper provides more than half the effort to complete the activity 1 Dependent. The helper does all the effort to complete an activity 7 Patient refused to complete or attempt activity 9 The patient did not perform the activity before the current illness or injury 88 Not attempted due to Medical conditions or safety concerns Transfers (B, C, W/C) (FIM): 4 Scootin Supine to/from Sit: 4 Sit to/from Stand: 4 Weight Bearing Right Lower Extremity: Right Weight Bearing/Tolerated Left Lower Extremity: Left Weight Bearing/Tolerated Gait Training Gait (FIM): 2 Distance (FIM): 2=929-77 ft Distance: 125' Gait Level of Assist: 4 Gait Persons Needed: 1 Gait Assistive Device: FWW Pt use short step length Assessment Current Status: Good Progress Pt requires min A to perform bed mobility. Pt uses PT arm to achieve supine to sit. Pt is min A from sit<>stand to FWW. Pt is CGA during amb and on 1L O2. Pt was able to amb 125' with FWW and CGA. Pt is now in recliner with all needs met and nurse notified of pts request for a pain pill. PT Mcfp Goals Mcfp Goals PT Information Security Associate Goals Time Frame: Apr 05, 2018 Transfers (B,C,W/C) (FIM): 7 Gait (FIM): 6 Gait distance (FIM): 3=150 ft PT Plan Problem List Problem List: Activity Tolerance, Functional Strength, Safety, Balance, Gait, Transfer, Bed Mobility, ROM Treatment/Plan Treatment Plan: Continue Plan of Care Treatment Plan: Bed Mobility, Education, Functional Activity Giuseppe, Functional Strength, Gait, Safety, Therapeutic Exercise, Transfers Treatment Duration: Apr 05, 2018 Frequency: 6 times per week Estimated Hrs Per Day: .5 hour per day Patient and/or Family Agrees t: Yes Time/GCodes Time In: 1044 Time Out: 1101 Total Billed Treatment Time: 17 Total Billed Treatment 1 visit GT 17 min SHEBA PAK PT Apr 03, 2018 11:24
--- NOTE | 2018-04-03 15:34 | Progress Note (SOAP) ---
Subjective Date Seen by a Provider: Apr 03, 2018 Time Seen by a Provider: 15:00 Subjective/Events-last exam doing ok. wound clean, with no new areas redness/erythema. tolerating clears with bowel sounds however no bowel fxn yet. no fever/chills. WBC normal with minimal drain output. Objective Exam Vital Signs Date Time Temp Pulse Resp B/P (MAP) Pulse Ox O2 Delivery O2 Flow Rate FiO2 04/03/18 08:00 98.9 91 24 126/69 (88) 96 Room Air 04/03/18 08:00 95 Mechanical Ventilator 1.00 04/03/18 02:02 94 Nasal Cannula 2.00 04/03/18 00:33 99.4 88 22 125/60 (81) 93 Room Air 04/02/18 22:23 97 Nasal Cannula 2.00 04/02/18 19:45 Room Air 04/02/18 19:40 98.8 103 18 116/69 (85) 94 Room Air 04/02/18 19:04 88 Room Air 04/02/18 15:56 98.5 101 20 129/73 (91) 93 Room Air I & O 04/03/18 07:00 Intake Total 1730 ml Output Total 1780 ml Balance -50 ml Capillary Refill : General Appearance: No Apparent Distress HEENT: PERRL/EOMI Neck: Full Range of Motion Respiratory: Chest Non Tender, Decreased Breath Sounds Cardiovascular: Regular Rate, Rhythm Gastrointestinal: normal bowel sounds, soft, distended, other (open wound with good granulation bed forming) Extremity: Normal Capillary Refill Neurologic/Psychiatric: Alert, Oriented x3 Skin: Normal Color Lymphatic: No Adenopathy Results Lab Laboratory Tests 04/03/18 09:24: White Blood Count 7.5, Red Blood Count 3.14L, Hemoglobin 8.8L, Hematocrit 27L, Mean Corpuscular Volume 85, Mean Corpuscular Hemoglobin 28, Mean Corpuscular Hemoglobin Concent 33, Red Cell Distribution Width 14.3, Platelet Count 208, Mean Platelet Volume 9.5, Sodium Level 132L, Potassium Level 3.5L, Chloride Level 101, Carbon Dioxide Level 21, Anion Gap 10, Blood Urea Nitrogen 18, Creatinine 0.85, Estimat Glomerular Filtration Rate > 60, BUN/Creatinine Ratio 21, Glucose Level 97, Calcium Level 8.2L Microbiology 03/31/18 Gram Stain - Final, Resulted 2/8/19 Anaerobic Culture - Preliminary, Resulted Culture In Progress 03/31/18 Wound Culture - Preliminary, Resulted Pseudomonas aeruginosa Assessment/Plan Assessment/Plan Assess & Plan/Chief Complaint s/p LAR for ca. increase ambulation. ambulate in halls at least BID. continue DVT prophylaxis. IS and breathing tx. patient has recurrent urinary retention and we will keep brooke in for now. abscess abd wall s/p incision and drainage, pack wet to dry BID. start zosyn. culture + pseudomonas a. WBC normal and patient afebrile. start clear liquids. scheduled to wound VAC today. dulcolax supp. ATTILA FRANCO MD Apr 03, 2018 15:34
[2018-04-03 15:36] VITALS: BP 118/66
[2018-04-03] MEDS ORDERED: BISACODYL 10 MG SUPP (DULCOLAX) PR NR (16:15)
--- NOTE | 2018-04-03 16:26 | NUR ---
Met with pt and briefly. 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 will be his primary caregiver. will follow and assist with any post-discharge needs.
[2018-04-03] MEDS: oxyCODONE/APAP 7.5-325 MG (PERCOCET 7.5) TABLET PO PRN (19:03)
[2018-04-04] VITALS (7 sets, daily range): BP systolic 103–164; BP diastolic 64–91
[2018-04-04] MEDS: FUROSEMIDE 40 MG/4 ML INJ (LASIX) IVP SCH ×4 (00:05→17:31)
[2018-04-04] MEDS: METOCLOPRAMIDE INJ 10 MG/2 ML (REGLAN) IVP SCH ×4 (00:05→17:32)
[2018-04-04] MEDS: oxyCODONE/APAP 7.5-325 MG (PERCOCET 7.5) TABLET PO PRN ×4 (00:07→21:51)
[2018-04-04] MEDS: PIPERACILLIN/TAZOBACTAM (BULK) 4.5 GM in NS (IVPB) 100 ML IV SCH ×3 (01:08→17:00)
[2018-04-04] MEDS: RT-ALBUTEROL SULF 2.5 MG/3 ML PRE-MIX VIAL INH SCH ×6 (03:12→23:03)
[2018-04-04 07:04] LABS: HEMOGLOBIN 8.7 G/DL (13.3-17.7); MEAN PLATELET VOLUME 9.9 FL (7.4-10.4); WHITE BLOOD COUNT 6.3 10^3/uL (4.3-11.0)
[2018-04-04 07:21] LABS: BUN/CREATININE RATIO 24; CALCIUM 8.1 MG/DL (8.5-10.1); CARBON DIOXIDE 21 MMOL/L (21-32); CHLORIDE 102 MMOL/L (98-107); CREATININE SERUM 0.84 MG/DL (0.60-1.30); GFR ESTIMATED > 60; GLUCOSE 75 MG/DL (70-105); POTASSIUM 3.2 MMOL/L (3.6-5.0); SODIUM 134 MMOL/L (135-145)
--- NOTE | 2018-04-04 07:39 | Progress Note (SOAP) ---
Subjective Time Seen by a Provider: 07:36 Subjective/Events-last exam Patient doing okay. Patient has wound VAC. Patient not passing any gas. Potassium 3.2. Patient appears to be a little depressed. [place] needs to walk more. Objective Exam Vital Signs Date Time Temp Pulse Resp B/P (MAP) Pulse Ox O2 Delivery O2 Flow Rate FiO2 04/04/18 07:19 92 Room Air 04/04/18 04:05 97.6 97 20 103/64 (77) Nasal Cannula 2.00 04/04/18 03:12 93 Nasal Cannula 1.00 04/04/18 00:05 98.6 97 22 123/69 (87) 95 Room Air 04/03/18 22:32 95 Nasal Cannula 1.00 04/03/18 20:05 Room Air 04/03/18 15:36 99.6 87 22 118/66 (83) 95 Room Air 04/03/18 08:00 98.9 91 24 126/69 (88) 96 Room Air 04/03/18 08:00 95 Nasal Cannula 1.00 I & O 04/04/18 07:00 Intake Total 640 ml Output Total 2030 ml Balance -1390 ml Capillary Refill : General Appearance: No Apparent Distress, Thin HEENT: Normal ENT Inspection Neck: Full Range of Motion Respiratory: Lungs Clear, No Accessory Muscle Use, No Respiratory Distress Cardiovascular: Regular Rate, Rhythm, No Murmur Gastrointestinal: other (Distended, no bowel sounds) Results Lab Laboratory Tests 04/03/18 09:24 04/04/18 06:37 Laboratory Tests 04/03/18 09:24: White Blood Count 7.5, Red Blood Count 3.14L, Hemoglobin 8.8L, Hematocrit 27L, Mean Corpuscular Volume 85, Mean Corpuscular Hemoglobin 28, Mean Corpuscular Hemoglobin Concent 33, Red Cell Distribution Width 14.3, Platelet Count 208, Mean Platelet Volume 9.5, Sodium Level 132L, Potassium Level 3.5L, Chloride Level 101, Carbon Dioxide Level 21, Anion Gap 10, Blood Urea Nitrogen 18, Creatinine 0.85, Estimat Glomerular Filtration Rate > 60, BUN/Creatinine Ratio 21, Glucose Level 97, Calcium Level 8.2L 04/04/18 06:37: White Blood Count 6.3, Red Blood Count 3.07L, Hemoglobin 8.7L, Hematocrit 26L, Mean Corpuscular Volume 85, Mean Corpuscular Hemoglobin 28, Mean Corpuscular Hemoglobin Concent 33, Red Cell Distribution Width 14.0, Platelet Count 219, Mean Platelet Volume 9.9, Sodium Level 134L, Potassium Level 3.2L, Chloride Level 102, Carbon Dioxide Level 21, Anion Gap 11, Blood Urea Nitrogen 20H, Creatinine 0.84, Estimat Glomerular Filtration Rate > 60, BUN/Creatinine Ratio 24, Glucose Level 75, Calcium Level 8.1L Microbiology 03/31/18 Gram Stain - Final, Resulted 03/31/18 Anaerobic Culture - Preliminary, Resulted Culture In Progress 03/31/18 Wound Culture - Preliminary, Resulted Pseudomonas aeruginosa Assessment/Plan Assessment/Plan Assess & Plan/Chief Complaint Rectal cancer. Leukocytosis. . 03/30/18. Rectal cancer. Leukocytosis. Patient feeling better today. Patient able to walk and ready. No bowel sounds. . 03/31/18. Rectal cancer. Leukocytosis. Abdomen distended. Difficulty in urinating. . 04/03/18. Rectal cancer. Psychosis resolved. Abdomen still distended. Patient has a Delgado catheter in. . 04/04/18. Rectal cancer. Normal bowel sounds. Not passing gas. Path report.: Invasive moderately differential adenocarcinoma. Leukocytosis resolved. Patient has wound VAC on abdomen RENAN WILSON DO Apr 04, 2018 07:39
[2018-04-04] MEDS ORDERED: KCL 20 MEQ TAB (K-DUR) PO NR (07:45)
[2018-04-04] MEDS: NS IV 1000 ML 1,000 ML IV SCH ×2 (08:38→22:28)
--- NOTE | 2018-04-04 09:50 | Physical Therapy Daily Note ---
PT Daily Note-Current Subjective Pt in bed and agrees to PT. Pt reports bloody nose. Mental Status Patient Orientation: Person, Place, Situation, Normal For Age Attachments: Drains, Delgado Catheter, IV Transfers Therapy Code Descriptions/Definitions Functional [place] Measure: 0=Not Assessed/NA 4=Minimal Assistance 1=Total Assistance 5=Supervision or Setup 2=Maximal Assistance 6=Modified [place] 3=Moderate Assistance 7=Complete [place] Therapy Quality Codes: 6 Independent with activity with or without an assistive device 5 Patient requires set up or clean up by helper. Patient completes activity by themselves 4 Supervision or touching assist (CGA). [place] provide cues , steadying assist 3 The helper provides less than half the effort to complete the activity 2 The helper provides more than half the effort to complete the activity 1 Dependent. The helper does all the effort to complete an activity 7 Patient refused to complete or attempt activity 9 The patient did not perform the activity before the current illness or injury 88 Not attempted due to Medical conditions or safety concerns Transfers (B, C, W/C) (FIM): 4 Scootin Supine to/from Sit: 4 Sit to/from Stand: 4 Weight Bearing Right Lower Extremity: Right Weight Bearing/Tolerated Left Lower Extremity: Left Weight Bearing/Tolerated Gait Training Gait (FIM): 4 Distance (FIM): 3=150 ft Distance: 150' Gait Level of Assist: 4 Gait Persons Needed: 1 Gait Assistive Device: FWW Assessment Current Status: Fair Progress Pt requires min A with supine to sit due to pain, pt uses PT arm. Pt is able to perform sit<>stand from EOB to FWW with CGA for safety. Pt amb with FWW 150' with CGA for safety. Pt returned to room and is in recliner with all needs met. Pt requests another pain pill and PT educates pt that pain pills can cause constipation and that all movement in bed and chair, as well as, ambulating helps stimulate bowel activity. Patient voiced understanding. PT Mcfp Goals Credit Card Analyst Goals PT Credit Card Analyst Goals Time Frame: Apr 05, 2018 Transfers (B,C,W/C) (FIM): 7 Gait (FIM): 6 Gait distance (FIM): 3=150 ft PT Plan Problem List Problem List: Activity Tolerance, Functional Strength, Safety, Balance, Gait, Transfer, Bed Mobility Treatment/Plan Treatment Plan: Continue Plan of Care Treatment Plan: Bed Mobility, Education, Functional Activity Gi[place], Functional Strength, Gait, Safety, Therapeutic Exercise, Transfers Treatment Duration: Apr 15, 2018 Frequency: 6 times per week Estimated Hrs Per Day: .5 hour per day Patient and/or Family Agrees t: Yes Time/GCodes Time In: 851 Time Out: 910 Total Billed Treatment Time: 19 Total Billed Treatment 1 visit FA 19 min SHEBA PAK PT Apr 04, 2018 09:50
[2018-04-04] MEDS: PANTOPRAZOLE 40 MG (PROTONIX) VIAL IV SCH (10:13)
[2018-04-04] MEDS: ENOXAPARIN 30 MG/0.3 ML (LOVENOX) SYR SC SCH ×2 (10:14→21:51)
[2018-04-04] MEDS: FINASTERIDE (PROSCAR) 5 MG TAB PO SCH (10:14)
[2018-04-04] MEDS: SENNA W/DOCUSATE (SENOKOT S) TABLET PO SCH (10:14)
[2018-04-04] MEDS: SERTRALINE 50 MG (ZOLOFT) TABLET PO SCH (10:15)
[2018-04-04] MEDS: GABAPENTIN 300 MG (NEURONTIN) CAP PO SCH ×3 (10:15→21:51)
[2018-04-04] MEDS: DIAZEPAM 2 MG (VALIUM) TAB PO SCH ×2 (10:16→21:52)
--- NOTE | 2018-04-04 12:08 | Progress Note (SOAP) ---
Subjective Date Seen by a Provider: Apr 04, 2018 Time Seen by a Provider: 11:45 Subjective/Events-last exam doing better. tolerating clears and having copious flatus and small loose BM. minimal LALI output. pain controlled, no fever/chills. Objective Exam Vital Signs Date Time Temp Pulse Resp B/P (MAP) Pulse Ox O2 Delivery O2 Flow Rate FiO2 04/04/18 08:00 99.1 94 18 123/73 (90) 95 Room Air 04/04/18 08:00 Room Air 04/04/18 07:19 92 Room Air 04/04/18 04:05 97.6 97 20 103/64 (77) Nasal Cannula 2.00 04/04/18 03:12 93 Nasal Cannula 1.00 04/04/18 00:05 98.6 97 22 123/69 (87) 95 Room Air 04/03/18 22:32 95 Nasal Cannula 1.00 04/03/18 20:05 Room Air 04/03/18 15:36 99.6 87 22 118/66 (83) 95 Room Air I & O 04/04/18 07:00 Intake Total 640 ml Output Total 2030 ml Balance -1390 ml Capillary Refill : General Appearance: No Apparent Distress HEENT: PERRL/EOMI Neck: Full Range of Motion Respiratory: Chest Non Tender, Lungs Clear Cardiovascular: Regular Rate, Rhythm Gastrointestinal: normal bowel sounds, soft, other (wound clean with VAC) Extremity: Normal Capillary Refill Neurologic/Psychiatric: Alert, Oriented x3 Skin: Normal Color Lymphatic: No Adenopathy Results Lab Laboratory Tests 04/04/18 06:37: White Blood Count 6.3, Red Blood Count 3.07L, Hemoglobin 8.7L, Hematocrit 26L, Mean Corpuscular Volume 85, Mean Corpuscular Hemoglobin 28, Mean Corpuscular Hemoglobin Concent 33, Red Cell Distribution Width 14.0, Platelet Count 219, Mean Platelet Volume 9.9, Sodium Level 134L, Potassium Level 3.2L, Chloride Level 102, Carbon Dioxide Level 21, Anion Gap 11, Blood Urea Nitrogen 20H, Creatinine 0.84, Estimat Glomerular Filtration Rate > 60, BUN/Creatinine Ratio 24, Glucose Level 75, Calcium Level 8.1L Microbiology 03/31/18 Gram Stain - Final, Resulted 03/31/18 Anaerobic Culture - Preliminary, Resulted No anaerobes isolated 03/31/18 Wound Culture - Final, Resulted Pseudomonas aeruginosa Assessment/Plan Assessment/Plan Assess & Plan/Chief Complaint s/p LAR for ca. increase ambulation. ambulate in halls at least BID. continue DVT prophylaxis. IS and breathing tx. patient has recurrent urinary retention and we will keep brooke in for now. abscess abd wall s/p incision and drainage, pack wet to dry BID. start zosyn. culture + pseudomonas a. WBC normal and patient afebrile. start clear liquids. continue wound VAC today. having bowel fx, will start dys3 diet. when tolerating diet and ambulating well will d/c with home health. will need to keep brooke in and f/u with urology. will need continued wound VAC at home. cipro PO for pseudomonas coverage. ATTILA FRANCO MD Apr 04, 2018 12:08
[2018-04-04] MEDS ORDERED: HYDR-34 PO (12:12)
[2018-04-04] MEDS ORDERED: CIPR-225 PO (12:12)
[2018-04-04] MEDS ORDERED: METR500T PO (12:12)
--- NOTE | 2018-04-04 12:15 | Discharge Inst-Surgical ---
D/C Lap Instructions-KIDO New, Converted, or Re-Newed RX: RX on Chart Follow Up Appt in 1 week Activity as tolerated, no heavy lifting or exertion. wound VAC. monitor LALI drain output. No driving while on pain medications Incentive Spirometry use every 2 hours while awake Regular Diet(low residue) resume home meds, nwe meds: cipro, flagyl, lortab Symptoms to Report: Fever over 101 degree F, Nausea/Vomiting Infection Signs and Symptoms to report: Increased redness, Foul odor of wound, Increased drainage Bathing instructions: May shower Operative Area Clean/Dry; Keep incision clean/dry If any problems/questions: Contact your physician or go to Emergency Room ATTILA FRANCO MD Apr 04, 2018 12:15
[2018-04-05] MEDS: FUROSEMIDE 40 MG/4 ML INJ (LASIX) IVP SCH ×4 (00:43→17:51)
[2018-04-05] MEDS: METOCLOPRAMIDE INJ 10 MG/2 ML (REGLAN) IVP SCH ×4 (00:43→17:51)
[2018-04-05] MEDS: PIPERACILLIN/TAZOBACTAM (BULK) 4.5 GM in NS (IVPB) 100 ML IV SCH ×3 (00:52→17:51)
[2018-04-05] MEDS: RT-ALBUTEROL SULF 2.5 MG/3 ML PRE-MIX VIAL INH SCH ×5 (02:54→22:42)
[2018-04-05 03:28] LABS: HEMOGLOBIN 8.4 G/DL (13.3-17.7); MEAN PLATELET VOLUME 10.5 FL (7.4-10.4); WHITE BLOOD COUNT 8.3 10^3/uL (4.3-11.0)
[2018-04-05 03:44] LABS: BUN/CREATININE RATIO 7; CALCIUM 10.2 MG/DL (8.5-10.1); CARBON DIOXIDE 24 MMOL/L (21-32); CHLORIDE 105 MMOL/L (98-107); CREATININE SERUM 0.82 MG/DL (0.60-1.30); GFR ESTIMATED > 60; GLUCOSE 123 MG/DL (70-105); MAGNESIUM 1.4 MG/DL (1.8-2.4); POTASSIUM 2.9 MMOL/L (3.6-5.0); SODIUM 139 MMOL/L (135-145)
[2018-04-05] MEDS: oxyCODONE/APAP 7.5-325 MG (PERCOCET 7.5) TABLET PO PRN ×2 (06:05→22:22)
--- NOTE | 2018-04-05 07:48 | Progress Note (SOAP) ---
Subjective Time Seen by a Provider: 07:45 Subjective/Events-last exam Patient feeling a little better. Patient passed gas last night and a little smear. Potassium 2.9 and replaced. Magnesium 1.4 and replaced. Temperature 100 this morning. Abdominal sounds tinkling. Abdomen still distended Objective Exam Vital Signs Date Time Temp Pulse Resp B/P (MAP) Pulse Ox O2 Delivery O2 Flow Rate FiO2 04/05/18 07:36 93 Room Air 04/05/18 02:54 94 Room Air 04/04/18 23:35 100.0 91 24 127/72 (90) 93 Room Air 04/04/18 23:03 98 Room Air 04/04/18 20:00 Room Air 04/04/18 18:28 99.6 98 22 164/91 (115) 96 Room Air 04/04/18 18:05 99.1 04/04/18 18:00 99.6 98 22 164/91 (115) 96 Room Air 04/04/18 16:00 99.6 98 22 164/91 (115) 96 Room Air 04/04/18 12:10 93 Room Air 04/04/18 11:00 Room Air 04/04/18 08:00 99.1 94 18 123/73 (90) 95 Room Air 04/04/18 08:00 Room Air I & O 04/05/18 07:00 Intake Total 2900 ml Output Total 2760 ml Balance 140 ml Capillary Refill : General Appearance: No Apparent Distress, WD/WN, Thin HEENT: Normal ENT Inspection Neck: Full Range of Motion, Normal Inspection Respiratory: Lungs Clear, No Accessory Muscle Use, No Respiratory Distress Cardiovascular: Regular Rate, Rhythm, No Murmur Gastrointestinal: distended, other (Abdominal sounds tingling) Results Lab Laboratory Tests 04/05/18 03:15 Laboratory Tests 04/05/18 03:15: White Blood Count 8.3, Red Blood Count 3.13L, Hemoglobin 8.4L, Hematocrit 26L, Mean Corpuscular Volume 84, Mean Corpuscular Hemoglobin 27, Mean Corpuscular Hemoglobin Concent 32, Red Cell Distribution Width 16.0H, Platelet Count 177, Mean Platelet Volume 10.5H, Sodium Level 139, Potassium Level 2.9L, Chloride Level 105, Carbon Dioxide Level 24, Anion Gap 10, Blood Urea Nitrogen 6L, Creatinine 0.82, Estimat Glomerular Filtration Rate > 60, BUN/Creatinine Ratio 7 , Glucose Level 123H, Calcium Level 10.2H, Magnesium Level 1.4L Microbiology 03/31/18 Gram Stain - Final, Resulted 03/31/18 Anaerobic Culture - Preliminary, Resulted No anaerobes isolated 03/31/18 Wound Culture - Final, Resulted Pseudomonas aeruginosa Assessment/Plan Assessment/Plan Assess & Plan/Chief Complaint Rectal cancer. Leukocytosis. . 03/30/18. Rectal cancer. Leukocytosis. Patient feeling better today. Patient able to walk and ready. No bowel sounds. . 03/31/18. Rectal cancer. Leukocytosis. Abdomen distended. Difficulty in urinating. . 04/03/18. Rectal cancer. Psychosis resolved. Abdomen still distended. Patient has a Delgado catheter in. . 04/04/18. Rectal cancer. Normal bowel sounds. Not passing gas. Path report.: Invasive moderately differential adenocarcinoma. Leukocytosis resolved. Patient has wound VAC on abdomen. . 04/05/18. Rectal cancer. Patient passed gas last night. Abdomen still distended. Magnesium and potassium low replaced. Temperature 100 this a.m. RENAN WILSON DO Apr 05, 2018 07:48
[2018-04-05 08:00] VITALS: BP 135/79
[2018-04-05] MEDS: ENOXAPARIN 30 MG/0.3 ML (LOVENOX) SYR SC SCH ×2 (08:24→21:35)
[2018-04-05] MEDS: PANTOPRAZOLE 40 MG (PROTONIX) VIAL IV SCH (08:24)
[2018-04-05] MEDS: GABAPENTIN 300 MG (NEURONTIN) CAP PO SCH ×3 (08:24→21:34)
[2018-04-05] MEDS: SERTRALINE 50 MG (ZOLOFT) TABLET PO SCH (08:25)
[2018-04-05] MEDS: FINASTERIDE (PROSCAR) 5 MG TAB PO SCH (08:25)
[2018-04-05] MEDS: POTASSIUM CL 10MEQ/50ML IVPB 50 ML IV SCH ×4 (08:31→13:52)
[2018-04-05] MEDS: MAGNESIUM 1 GM/100 ML IVPB 100 ML IV SCH ×2 (08:36→09:54)
[2018-04-05] MEDS: DIAZEPAM 2 MG (VALIUM) TAB PO SCH ×2 (08:37→21:35)
[2018-04-05] MEDS: SENNA W/DOCUSATE (SENOKOT S) TABLET PO SCH (09:45)
--- NOTE | 2018-04-05 10:38 | CONSULTATION REPORT ---
DATE OF SERVICE: 04/05/2018 ATTENDING PHYSICIAN: Dr. Parvin Servin. SUMMARY: An 82-year-old white man recovering from a low anterior colorectal resection. I had put the left ureteral catheter for identification of the ureter during surgery. The patient still has the catheter in and a Delgado catheter. He denies previous problem passing urine. Also, he is on Proscar daily, no Flomax. IMPRESSION: Colorectal cancer, rule out retention. RECOMMENDATIONS: Discontinue Delgado catheter today if okay surgically and medically and then we will follow his voiding including bladder scan postvoid residuals. Plan was fully explained to the patient. Job ID: [id number] DocumentID: [id number] Dictated Date: 04/05/2018 09:20:26 Supervisor Asphalt Paving Date: 04/05/2018 10:37:25 Dictated By: MAIKOL PUGA MD MTDD
--- NOTE | 2018-04-05 12:10 | Physical Therapy Daily Note ---
PT Daily Note-Current Subjective Pt. in bed states he waited all morning for therapy to come and now hes tired because he sat up a long time but agrees to Rx. Pain Location: No Pain Reported Mental Status Patient Orientation: Person, Place, Time, Situation Attachments: Delgado Catheter, Other-See Comments (wound vacc), IV Transfers Therapy Code Descriptions/Definitions Functional [place] Measure: 0=Not Assessed/NA 4=Minimal Assistance 1=Total Assistance 5=Supervision or Setup 2=Maximal Assistance 6=Modified [place] 3=Moderate Assistance 7=Complete [place] Therapy Quality Codes: 6 Independent with activity with or without an assistive device 5 Patient requires set up or clean up by helper. Patient completes activity by themselves 4 Supervision or touching assist (CGA). [place] provide cues , steadying assist 3 The helper provides less than half the effort to complete the activity 2 The helper provides more than half the effort to complete the activity 1 Dependent. The helper does all the effort to complete an activity 7 Patient refused to complete or attempt activity 9 The patient did not perform the activity before the current illness or injury 88 Not attempted due to Medical conditions or safety concerns in out bed with CGA and log roll instruction Weight Bearing Right Lower Extremity: Right Weight Bearing/Tolerated Left Lower Extremity: Left Weight Bearing/Tolerated Gait Training Gait (FIM): 4 Distance (FIM): 3=150 ft (500ft) Gait Level of Assist: 4 Gait Persons Needed: 1 Gait Assistive Device: FWW assist for [place] and IV Exercises Supine Ex: Ankle pumps, Heel Slides, Hip abd/add Supine Reps: 8 Seated Therapy Exercises: Long arc quads, Hip flexion Seated Reps: 8 Assessment Current Status: Good Progress pt. fatigued but continues progress PT Residential Goals Black Leather Trimmer Goals PT Black Leather Trimmer Goals Time Frame: Apr 05, 2018 Transfers (B,C,W/C) (FIM): 7 Gait (FIM): 6 Gait distance (FIM): 3=150 ft PT Plan Treatment/Plan Treatment Plan: Continue Plan of Care Treatment Plan: Bed Mobility, Education, Functional Activity Giuseppe, Functional Strength, Gait, Safety, Therapeutic Exercise, Transfers Treatment Duration: Apr 15, 2018 Frequency: 6 times per week Estimated Hrs Per Day: .5 hour per day Patient and/or Family Agrees t: Yes Safety Risks/Education Patient Education: Gait Training, Transfer Techniques, Correct Positioning, Disease Process, Safety Issues Teaching Recipient: Patient Teaching Methods: Demonstration, Discussion Response to Teaching: Verbalize Understanding, Return Demonstration, Reinforcement Needed Time/GCodes Time In: 1140 Time Out: 1203 Total Billed Treatment Time: 23 Total Billed Treatment 1,GT23m G Codes Necessary: ENRIQUETA Florence ENVIRONMENTAL PROFESSIONAL Apr 05, 2018 12:10
[2018-04-05] MEDS: fentaNYL INJECTION 100 MCG/2 ML AMP IVP PRN ×2 (13:07→21:33)
--- NOTE | 2018-04-05 16:01 | Progress Note (SOAP) ---
Subjective Date Seen by a Provider: Apr 05, 2018 Time Seen by a Provider: 14:00 Subjective/Events-last exam doing better today. had 2 BM's. pain controlled and ambulating slightly better. hypokalemic today, now being replaced. no fever/chills. Objective Exam Vital Signs Date Time Temp Pulse Resp B/P (MAP) Pulse Ox O2 Delivery O2 Flow Rate FiO2 04/05/18 15:02 92 Room Air 04/05/18 10:50 94 Room Air 04/05/18 08:15 94 Room Air 04/05/18 08:00 98.8 110 21 135/79 (97) 95 Room Air 04/05/18 07:36 93 Room Air 04/05/18 02:54 94 Room Air 04/04/18 23:35 100.0 91 24 127/72 (90) 93 Room Air 04/04/18 23:03 98 Room Air 04/04/18 20:00 Room Air 04/04/18 18:28 99.6 98 22 164/91 (115) 96 Room Air 04/04/18 18:05 99.1 04/04/18 18:00 99.6 98 22 164/91 (115) 96 Room Air 04/04/18 16:00 99.6 98 22 164/91 (115) 96 Room Air I & O 04/05/18 07:00 Intake Total 2900 ml Output Total 2760 ml Balance 140 ml Capillary Refill : General Appearance: No Apparent Distress HEENT: PERRL/EOMI Neck: Full Range of Motion Respiratory: Chest Non Tender, Lungs Clear Cardiovascular: Regular Rate, Rhythm Gastrointestinal: normal bowel sounds, soft, distended, other (wound VAC intact , no new areas necrosis) Extremity: Normal Capillary Refill Neurologic/Psychiatric: Alert, Oriented x3 Skin: Normal Color Lymphatic: No Adenopathy Results Lab Laboratory Tests 04/05/18 03:15: White Blood Count 8.3, Red Blood Count 3.13L, Hemoglobin 8.4L, Hematocrit 26L, Mean Corpuscular Volume 84, Mean Corpuscular Hemoglobin 27, Mean Corpuscular Hemoglobin Concent 32, Red Cell Distribution Width 16.0H, Platelet Count 177, Mean Platelet Volume 10.5H, Sodium Level 139, Potassium Level 2.9L, Chloride Level 105, Carbon Dioxide Level 24, Anion Gap 10, Blood Urea Nitrogen 6L, Creatinine 0.82, Estimat Glomerular Filtration Rate > 60, BUN/Creatinine Ratio 7 , Glucose Level 123H, Calcium Level 10.2H, Magnesium Level 1.4L Microbiology 03/31/18 Gram Stain - Final, Complete 03/31/18 Anaerobic Culture - Final, Complete No anaerobes isolated 03/31/18 Wound Culture - Final, Complete Pseudomonas aeruginosa Assessment/Plan Assessment/Plan Assess & Plan/Chief Complaint s/p LAR for ca. increase ambulation. ambulate in halls at least QID. continue DVT prophylaxis. IS and breathing tx. patient has recurrent urinary retention and we will keep brooke in for now. abscess abd wall s/p incision and drainage, on zosyn. culture + pseudomonas a. WBC normal and patient afebrile. continue wound VAC as OP having bowel fx, on dys3 diet. when tolerating diet and ambulating well will d/c with home health. will need to keep brooke in and f/u with urology. will need continued wound VAC at home. cipro PO for pseudomonas coverage. ATTILA FRANCO MD Apr 05, 2018 16:01
--- NOTE | 2018-04-05 16:24 | NUR ---
Spoke with Dr. Melendrez and Dr. Servin and encouraged them both that patient would meet for swing bed if this was a need. Dr. Melendrez reports that he anticipates that he will dismiss the patient to home tomorrow et swing bed will not be needed at this time.
[2018-04-05 16:57] VITALS: BP 123/68
--- NOTE | 2018-04-05 16:57 | NUR ---
Met with pt and and discussed need for Home Health senior care to follow pt at home to assist with wound vac. They were agreeable and contacted three home health care agencies and all denied inability to accept pt due to staffing issues as pt lives in [facility] and there home care recently closed. [facility] [place], [place] was willing to accept pt but initial visit unable to take place till Tuesday the Mar.Will fax medical information and will let pt and family, physician and [place], Wound Vac RN know to determine if acceptable.
[2018-04-06] VITALS: BP 131/73
[2018-04-06] MEDS: FUROSEMIDE 40 MG/4 ML INJ (LASIX) IVP SCH ×3 (01:17→12:12)
[2018-04-06] MEDS: METOCLOPRAMIDE INJ 10 MG/2 ML (REGLAN) IVP SCH ×3 (01:17→12:12)
[2018-04-06] MEDS: PIPERACILLIN/TAZOBACTAM (BULK) 4.5 GM in NS (IVPB) 100 ML IV SCH ×2 (01:17→10:05)
[2018-04-06] MEDS: RT-ALBUTEROL SULF 2.5 MG/3 ML PRE-MIX VIAL INH SCH ×4 (03:47→13:50)
[2018-04-06] MEDS: oxyCODONE/APAP 7.5-325 MG (PERCOCET 7.5) TABLET PO PRN (04:58)
[2018-04-06 05:13] LABS: HEMOGLOBIN 8.8 G/DL (13.3-17.7); MEAN PLATELET VOLUME 9.4 FL (7.4-10.4); RED CELL DISTRIBUTION WIDTH 14.1 % (10.0-14.5); WHITE BLOOD COUNT 7.1 10^3/uL (4.3-11.0)
[2018-04-06 05:22] LABS: BUN/CREATININE RATIO 14; CALCIUM 8.2 MG/DL (8.5-10.1); CARBON DIOXIDE 22 MMOL/L (21-32); CHLORIDE 101 MMOL/L (98-107); CREATININE SERUM 0.76 MG/DL (0.60-1.30); GFR ESTIMATED > 60; GLUCOSE 80 MG/DL (70-105); MAGNESIUM 1.9 MG/DL (1.8-2.4); POTASSIUM 3.6 MMOL/L (3.6-5.0); SODIUM 136 MMOL/L (135-145)
[2018-04-06 08:00] VITALS: BP 133/78
--- NOTE | 2018-04-06 08:20 | Progress Note (SOAP) ---
Subjective Time Seen by a Provider: 08:17 Subjective/Events-last exam patient's blood tests look better today. Patient did pass gas the other day. Patient seems little depressed. Patient afebrile. Abdomen still has some distention. Patient overall doing better Objective Exam Vital Signs Date Time Temp Pulse Resp B/P (MAP) Pulse Ox O2 Delivery O2 Flow Rate FiO2 04/06/18 06:32 94 Room Air 04/06/18 03:48 92 Room Air 04/06/18 00:00 98.2 93 18 131/73 (92) 94 Room Air 04/05/18 22:42 91 Room Air 04/05/18 20:00 Room Air 04/05/18 16:57 98.8 96 20 123/68 (86) 95 Room Air 04/05/18 15:02 92 Room Air 04/05/18 10:50 94 Room Air I & O 04/06/18 06:59 Intake Total 1200 ml Output Total 1725 ml Balance -525 ml Capillary Refill : General Appearance: No Apparent Distress, Thin HEENT: Normal ENT Inspection Neck: Full Range of Motion Respiratory: Lungs Clear, No Accessory Muscle Use, No Respiratory Distress Cardiovascular: Regular Rate, Rhythm, No Murmur Gastrointestinal: other (atient has bowel sounds) Results Lab Laboratory Tests 04/06/18 05:00 Laboratory Tests 04/06/18 05:00: White Blood Count 7.1, Red Blood Count 3.14L, Hemoglobin 8.8L, Hematocrit 26L, Mean Corpuscular Volume 84, Mean Corpuscular Hemoglobin 28, Mean Corpuscular Hemoglobin Concent 33, Red Cell Distribution Width 14.1, Platelet Count 284, Mean Platelet Volume 9.4, Sodium Level 136, Potassium Level 3.6, Chloride Level 101, Carbon Dioxide Level 22, Anion Gap 13, Blood Urea Nitrogen 11, Creatinine 0.76, Estimat Glomerular Filtration Rate > 60, BUN/Creatinine Ratio 14, Glucose Level 80, Calcium Level 8.2L, Magnesium Level 1.9 Microbiology 03/31/18 Gram Stain - Final, Complete 03/31/18 Anaerobic Culture - Final, Complete No anaerobes isolated 03/31/18 Wound Culture - Final, Complete Pseudomonas aeruginosa Assessment/Plan Assessment/Plan Assess & Plan/Chief Complaint Rectal cancer. Leukocytosis. . 03/30/18. Rectal cancer. Leukocytosis. Patient feeling better today. Patient able to walk and ready. No bowel sounds. . 03/31/18. Rectal cancer. Leukocytosis. Abdomen distended. Difficulty in urinating. . 04/03/18. Rectal cancer. Psychosis resolved. Abdomen still distended. Patient has a Delgado catheter in. . 04/04/18. Rectal cancer. Normal bowel sounds. Not passing gas. Path report.: Invasive moderately differential adenocarcinoma. Leukocytosis resolved. Patient has wound VAC on abdomen. . 04/05/18. Rectal cancer. Patient passed gas last night. Abdomen still distended. Magnesium and potassium low replaced. Temperature 100 this a.m. . 04/06/18. Rectal cancer. Patient doing better. Patient appears depressed. magnesium and potassium normalarea No elevated temperature RENAN WILSON DO Apr 06, 2018 08:20
--- NOTE | 2018-04-06 09:48 | Physical Therapy Daily Note ---
PT Daily Note-Current Subjective Pt was in bed and agreed to PT. Reports that they are trying to figure out home health for him. Pain Numeric Pain Scale: 5-Moderate Pain Location Body Site: Abdomen Mental Status Patient Orientation: Person, Place, Situation Attachments: SCD's, Drains, Delgado Catheter Transfers Therapy Code Descriptions/Definitions Functional [place] Measure: 0=Not Assessed/NA 4=Minimal Assistance 1=Total Assistance 5=Supervision or Setup 2=Maximal Assistance 6=Modified [place] 3=Moderate Assistance 7=Complete [place] Therapy Quality Codes: 6 Independent with activity with or without an assistive device 5 Patient requires set up or clean up by helper. Patient completes activity by themselves 4 Supervision or touching assist (CGA). [employer] provide cues , steadying assist 3 The helper provides less than half the effort to complete the activity 2 The helper provides more than half the effort to complete the activity 1 Dependent. The helper does all the effort to complete an activity 7 Patient refused to complete or attempt activity 9 The patient did not perform the activity before the current illness or injury 88 Not attempted due to Medical conditions or safety concerns Transfers (B, C, W/C) (FIM): 4 Scootin Supine to/from Sit: 4 Sit to/from Stand: 5 Weight Bearing Right Lower Extremity: Right Weight Bearing/Tolerated Left Lower Extremity: Left Weight Bearing/Tolerated Gait Training Gait (FIM): 5 Distance (FIM): 3=150 ft Distance: 150' Gait Level of Assist: 5 Gait Persons Needed: 1 Gait Assistive Device: FWW Short step length, slow gait speed Assessment Current Status: Fair Progress Pt able to perform most bed mobility indep, needs min A by using PT hand to get EOB. Pt able to perform sit<>stand SBA. Pt able to amb 150' with FWW and SBA. Pt returned to room and is in recliner with all needs met. PT Deputy City Clerk Goals Deputy City Clerk Goals PT Deputy City Clerk Goals Time Frame: Apr 05, 2018 Transfers (B,C,W/C) (FIM): 7 Gait (FIM): 6 Gait distance (FIM): 3=150 ft PT Plan Problem List Problem List: Activity Tolerance, Functional Strength, Safety, Balance, Gait, Transfer, Bed Mobility, ROM Treatment/Plan Treatment Plan: Continue Plan of Care Treatment Plan: Bed Mobility, Education, Functional Activity Giuseppe, Functional Strength, Gait, Safety, Therapeutic Exercise, Transfers Treatment Duration: Apr 15, 2018 Frequency: 6 times per week Estimated Hrs Per Day: .5 hour per day Patient and/or Family Agrees t: Yes Discharge Recommendations Equpiment Recommendations-D/C: Front Wheeled Walker Time/GCodes Time In: 842 Time Out: 857 Total Billed Treatment Time: 15 Total Billed Treatment 1 visit FA 15 min SHEBA PAK PT Apr 06, 2018 09:48
[2018-04-06] MEDS: PANTOPRAZOLE 40 MG (PROTONIX) VIAL IV SCH (10:02)
[2018-04-06] MEDS: ENOXAPARIN 30 MG/0.3 ML (LOVENOX) SYR SC SCH (10:04)
[2018-04-06] MEDS: DIAZEPAM 2 MG (VALIUM) TAB PO SCH (10:06)
[2018-04-06] MEDS: SENNA W/DOCUSATE (SENOKOT S) TABLET PO SCH (10:06)
[2018-04-06] MEDS: GABAPENTIN 300 MG (NEURONTIN) CAP PO SCH ×2 (10:07→13:48)
[2018-04-06] MEDS: SERTRALINE 50 MG (ZOLOFT) TABLET PO SCH (10:07)
[2018-04-06] MEDS: FINASTERIDE (PROSCAR) 5 MG TAB PO SCH (10:08)
[2018-04-06] MEDS ORDERED: TAMS0.4C98 PO (11:03)
--- NOTE | 2018-04-06 11:24 | Progress Note-Urology ---
Progress Note-Urology Progress Notes/Assess & Plan Progress/Assessment & Plan HOME TODAY PER DR FRANCO, WITH [facility]. WE WILL CONTINUE PROSCAR BUT ADD FLOMAX AND SEE PATIENT IN OFFICE IN ONE WEEK TO [facility]. PATIENT WILL NEED LAND FOR RETENTION. 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
--- NOTE | 2018-04-06 12:12 | NUR ---
Visited with pt about Brooke catheter care and changing to leg bag for daily use. Gave a handout with an explanation of the procedure. Step by step instructions on how to change from brooke drainage bag to leg back to brooke drainage bag. Also gave information on how to clean bags when not in use. Discussed s/sx of UTI, ways to prevent it, and when to call the Dr. Gave supplies needed for home use. Pt verbalized understanding. Addendum: 04/06/18 at 1217 by KAYLA GE RN Amended: Links added.
--- NOTE | 2018-04-06 12:13 | NUR ---
Pt teaching about home wound vac care. Discussed different alarms that may occur and how to trouble shoot and where to find information in manual. Teaching done about how to change canister when it is 1/2 to 2/3 full. Discussed with pt what to do if therapy is stopped for over 2 hours. Demonstrated how to look for leaks and how to repair leaks. Pt verbalized understanding and had no further questions.
--- NOTE | 2018-04-06 13:00 | NUR ---
UNABLE TO GIVE NOON GABAPENTIN. PACKED ALL HOME MEDS AND TOOK TO CAR.
--- NOTE | 2018-04-06 14:00 | NUR ---
RX AND INST AND VERBALIZED UNDERSTANDING. DC'D TO HOME WITH .
--- NOTE | 2018-04-06 14:10 | NUR ---
Pt plans to be discharged today and will be his primary caregiver. Referral made to [facility] from [facility] for [facility] care. They have accepted him and plan to visit on Tuesday the . Pt and understand and accepting of Home Health care plan. Pt also needing a Front Wheel Walker which he requested to be provided by [employer] and it has been delvered to pt room.
--- NOTE | 2018-04-23 04:54 | DISCHARGE SUMMARY ---
DATE OF SERVICE: ATTENDING PHYSICIAN: Jay Servin DO ADMISSION DIAGNOSIS: Rectal adenocarcinoma. DISCHARGE DIAGNOSIS: Rectal adenocarcinoma. PROCEDURE: Open low anterior colorectal resection and a left subclavian central venous catheter placement. SURGEON: Zarina Franco MD YARD LABOR SUPERVISOR: Preston Ward APRN OTHER DIAGNOSES: Benign prostatic hypertrophy, history of bladder cancer, hypercholesterolemia, neuropathy, anxiety, depression. COMPLICATIONS: Subcutaneous wound infection. DISPOSITION: The patient tolerated the procedure well. HOSPITAL COURSE: The patient is an 82-year-old male who we had initially seen in 11/2010 for crampy abdominal pain, rectal bleeding and nausea and vomiting. A CT scan performed, which showed inflammation of the descending colon consistent with colitis. He then underwent a colonoscopy on 12/10/2010, where he was found to have a severe sigmoid diverticulosis as well as sigmoid colitis. 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 He was seen in the office for persistent intermittent episodes of rectal bleeding for the past three weeks. He reports that he was otherwise feeling well and did not report any abdominal pain and was tolerating a regular diet and did not notice any weight loss. On 02/24/2018, he underwent a colonoscopy where he was found to have a large mass of the rectum approximately 8 to 10 cm from the anal verge encompassing approximately 3/4 of the luminal diameter. This was biopsied and consistent with a moderately differentiated adenocarcinoma. We then schedule a CT scan, which did show the lesion; however, no evidence of metastatic disease or regional disease. PAST MEDICAL HISTORY: BPH, bladder cancer, hypercholesterolemia, neuropathy, anxiety, depression. PAST SURGERIES: Transurethral resection bladder tumor 08/01/2007. ALLERGIES: CIPRO. CURRENT MEDICATIONS: Valium 2 mg daily, finasteride 5 mg daily, gabapentin 300 mg t.i.d., rosuvastatin 5 mg daily, sertraline 25 mg daily. SOCIAL HISTORY: Previous smoked 39 pack years, quit in 1998. Negative alcohol. FAMILY HISTORY: Sister with breast cancer. On 03/28/2018, the patient underwent an open low anterior colorectal resection as well as placement of a left subclavian central venous catheter. After resection of the colon and rectum, the specimen was examined on the backtable visualizing the lesion as well as a clean noninvolved distal end. The patient tolerated the procedure well and was admitted to the ICU. In the ICU, he did develop urinary retention and the bladder catheter was replaced. Also, intraoperatively urology placed a stent in the left ureter. Upon further questioning since the diagnosis of bladder cancer he has had multiple events of urinary retention. The catheter remained intact. The patient did well and was sent to the general surgical floor. His vital signs remained stable; however, he did have low grade temperatures. Chest x-ray was performed, which did show atelectasis. He did also develop a postoperative ileus and did not have any bowel function and minimal bowel sounds. His laboratory work remained normal with a normal white count. Approximately postoperative day #3, he did develop redness and erythema around the largest incision infraumbilically, which was opened and an abscess identified. This was left open and packed wet to dry and eventually a wound VAC was placed. His ileus did resolve overtime and he was able to have a significant bowel function. He was started on a clear liquid diet, which he tolerated well, which was advanced to a low residue diet. He was also ambulating well and had adequate pain control with oral pain medication. The patient was discharged home on 04/06/2018. HOME GOING INSTRUCTIONS: Low residue diet for the next 6 weeks. Resume all previous home medications hydrocodone p.r.n. Okay to shower. Home with home healthcare to change the wound VAC. He will be instructed to follow up in the office in approximately 2 weeks. Job ID: [id number] DocumentID: [id number] Dictated Date: 04/22/2018 13:35:45 Eyeletter Date: 04/23/2018 04:53:57 Dictated By: ZARINA FRANCO MD [facility]
--- NOTE | 2018-04-26 09:09 | Physician Query Clarification ---
PQ-Debridement Admission/Discharge Admission Date: Mar 28, 2018 at 08:10 Discharge Date: Apr 06, 2018 at 14:00 PHYSICIAN RESPONSE QUESTION: Bedside debridement was done on 03/31/18 Please clarify the depth of the debridement. Please clarify if the debridement was excisional or non-excisional. PQ Debridement : Date of debridement: Mar 31, 2018 Level: Subcutaneous Tissue Type: Non-excisional In responding to this query, please exercise your independent professional judgment. The purpose of this communication is to more accurately reflect the complexity of your patients condition. The fact that a question is asked does not imply that any particular answer is desired or expected. Thank you for your timely response to this clarification. Requestors name: Dara Tom THIS PHYSICIAN QUERY FORM IS A PERMANENT PART OF THE MEDICAL RECORD MISBAH DONALDSON Apr 26, 2018 09:09 ATTILA FRANCO MD Apr 26, 2018 10:51
--- NOTE | 2018-04-26 09:13 | Physician Query-Debridement ---
Physician Query-Debridement Query to Physician: We need your assistance to accurately assign a procedure code. Physician participation is requested in all cases of certified professional coder uncertainty to minimize errors in code assignment and to avoid compliance issues. Excisional debridement of wound, infection, or burn: Surgical removal or cutting away of devitalized tissue, necrosis, or slough. Can be done in the operating room, ER, or at the bedside. Non-excisional debridement: Nonoperative brushing, irrigation, scrubbing, or washing of devitalized tissue, necrosis, or slough. Includes snipping of tissue followed by Sher tank Tx and minor scissors removal of loss fragments. Can be done by a nurse, therapist, or doctor. Please clarify the type of debridement on this form as an addendum for service date (s) of: Bedside debridement done on Apr 02, 2018 PHYSICIAN RESPONSE: PQ Debridement : Date of debridement: Apr 02, 2018 Type: Non-Excisional If excisional, deepest level: Subcutaneous tissue If you have questions please contact: Landfill Gas Collection System Operator: Dara Santos Ext: [phone] Thank you for your time and cooperation. Clinical Silver Cleaner/Landfill Gas Collection System Operator This is a permanent part of the medical record MISBAH SANTOS Apr 26, 2018 09:13 ATTILA FRANCO MD Apr 26, 2018 10:52
== END 2018-04-06 14:00 | disposition home health service (06) | DRG 330 ==
LOC: 4TH 08:10 → SURG 08:11 → ICU 16:27 → 4TH 03-31 05:45
PROVIDERS: ADMIT Surgery; ATTEND Surgery
PROC: 0T778DZ Dilation of Left Ureter with Intraluminal Device, Via Natural or Artificial Opening Endoscopic (ICD-10-PCS; 2018-03-28)
PROC: 0DTN0ZZ Resection of Sigmoid Colon, Open Approach (ICD-10-PCS; principal; 2018-03-28 09:52)
PROC: 0DBP0ZZ Excision of Rectum, Open Approach (ICD-10-PCS; 2018-03-28 09:52)
PROC: 0DBM0ZZ Excision of Descending Colon, Open Approach (ICD-10-PCS; 2018-03-28 09:52)
PROC: 0JD83ZZ Extraction of Abdomen Subcutaneous Tissue and Fascia, Percutaneous Approach (ICD-10-PCS; 2018-03-31)
PROC: 0JD83ZZ Extraction of Abdomen Subcutaneous Tissue and Fascia, Percutaneous Approach (ICD-10-PCS; 2018-04-02)
DX: C19 Malignant neoplasm of rectosigmoid junction (principal); L02.211 Cutaneous abscess of abdominal wall; K91.89 Other postprocedural complications and disorders of digestive system; K56.7 Ileus, unspecified; J98.11 Atelectasis; E87.1 Hypo-osmolality and hyponatremia; R33.9 Retention of urine, unspecified; E87.6 Hypokalemia; E83.42 Hypomagnesemia; D64.9 Anemia, unspecified; F29 Unspecified psychosis not due to a substance or known physiological condition; K57.30 Diverticulosis of large intestine without perforation or abscess without bleeding; K76.89 Other specified diseases of liver; E78.00 Pure hypercholesterolemia, unspecified; G57.93 Unspecified mononeuropathy of bilateral lower limbs; F41.9 Anxiety disorder, unspecified; F32.9 Major depressive disorder, single episode, unspecified; N40.0 Benign prostatic hyperplasia without lower urinary tract symptoms; B96.5 Pseudomonas (aeruginosa) (mallei) (pseudomallei) as the cause of diseases classified elsewhere; Z85.51 Personal history of malignant neoplasm of bladder; Z87.891 Personal history of nicotine dependence; Z87.19 Personal history of other diseases of the digestive system
CPT/HCPCS: 36415; 71045; 71046; 74018; 74177; 80048; 81000; 83735; 85007; 85027; 86850; 86900; 86901; 87070; 87075; 87077; 87186; 87205; 88305; 88309; 94640; 94664; 94760

== ENCOUNTER → 2018-06-07 | Outpatient (RCR) | payer MEDICARE, OTHER ==
[2018-05-30 13:33] LABS: BASOPHILS % (AUTO) 0 % (0-10); EOSINOPHILS # (AUTO) 0.1 10^3/uL (0.0-0.3); EOSINOPHILS % (AUTO) 2 % (0-10); HEMATOCRIT 33 % (40-54); HEMOGLOBIN 10.9 G/DL (13.3-17.7); LYMPHOCYTES # (AUTO) 1.6 X 10^3 (1.0-4.0); LYMPHOCYTES % (AUTO) 29 % (12-44); MEAN CORPUSCULAR HEMOGLOBIN 27 PG (25-34); MEAN CORPUSCULAR HGB CONC 33 G/DL (32-36); MEAN CORPUSCULAR VOLUME 83 FL (80-99); MEAN PLATELET VOLUME 9.2 FL (7.4-10.4); MONOCYTES # (AUTO) 0.9 X 10^3 (0.0-1.0); MONOCYTES % (AUTO) 16 % (0-12); NEUTROPHILS # (AUTO) 2.9 X 10^3 (1.8-7.8); NEUTROPHILS % (AUTO) 53 % (42-75); PLATELET COUNT 219 10^3/uL (130-400); RED CELL DISTRIBUTION WIDTH 15.5 % (10.0-14.5); WHITE BLOOD COUNT 5.4 10^3/uL (4.3-11.0)
[2018-05-30 13:57] LABS: BUN/CREATININE RATIO 12; CALCIUM 9.7 MG/DL (8.5-10.1); CARBON DIOXIDE 25 MMOL/L (21-32); CHLORIDE 107 MMOL/L (98-107); CREATININE SERUM 0.92 MG/DL (0.60-1.30); GFR ESTIMATED > 60; GLUCOSE 87 MG/DL (70-105); POTASSIUM 4.2 MMOL/L (3.6-5.0); SODIUM 137 MMOL/L (135-145)
[2018-05-30 13:58] LABS: ALANINE AMINOTRANSFERASE 15 U/L (0-55); ALBUMIN 3.8 GM/DL (3.2-4.5); ALKALINE PHOSPHATASE 46 U/L (40-136); BILIRUBIN,TOTAL 0.4 MG/DL (0.1-1.0); TOTAL PROTEIN 6.6 GM/DL (6.4-8.2)
[~2018-06-07] MED LIST changes: +CIPR-225 PO; +TAMS0.4C98 PO
== END | disposition home or self-care (01) ==
LOC: ONC 03-09 14:03
PROVIDERS: ATTEND Internal Medicine Hematology & Oncology
DX: C20 Malignant neoplasm of rectum (principal); E78.00 Pure hypercholesterolemia, unspecified; F41.9 Anxiety disorder, unspecified; F32.9 Major depressive disorder, single episode, unspecified; N40.0 Benign prostatic hyperplasia without lower urinary tract symptoms; Z85.51 Personal history of malignant neoplasm of bladder; Z87.891 Personal history of nicotine dependence; Z79.899 Other long term (current) drug therapy
CPT/HCPCS: 36415; 77295; 77300; 77334; 77417; 77470; 80053; 85025; 99204; 99213; 99214

== ENCOUNTER 2018-08-31 09:12 | Outpatient (RCR) | payer MEDICARE, OTHER ==
[2018-06-12 12:56] LABS: BASOPHILS % (AUTO) 0 % (0-10); EOSINOPHILS % (AUTO) 1 % (0-10); HEMATOCRIT 33 % (40-54); HEMOGLOBIN 10.8 G/DL (13.3-17.7); LYMPHOCYTES # (AUTO) 1.2 X 10^3 (1.0-4.0); LYMPHOCYTES % (AUTO) 25 % (12-44); MEAN CORPUSCULAR HEMOGLOBIN 27 PG (25-34); MEAN CORPUSCULAR HGB CONC 32 G/DL (32-36); MEAN CORPUSCULAR VOLUME 83 FL (80-99); MEAN PLATELET VOLUME 9.2 FL (7.4-10.4); MONOCYTES # (AUTO) 0.6 X 10^3 (0.0-1.0); MONOCYTES % (AUTO) 14 % (0-12); NEUTROPHILS # (AUTO) 2.8 X 10^3 (1.8-7.8); NEUTROPHILS % (AUTO) 60 % (42-75); PLATELET COUNT 218 10^3/uL (130-400); RED CELL DISTRIBUTION WIDTH 15.5 % (10.0-14.5); WHITE BLOOD COUNT 4.6 10^3/uL (4.3-11.0)
[2018-06-12 13:15] LABS: BUN/CREATININE RATIO 12; CALCIUM 9.6 MG/DL (8.5-10.1); CARBON DIOXIDE 25 MMOL/L (21-32); CHLORIDE 106 MMOL/L (98-107); CREATININE SERUM 0.86 MG/DL (0.60-1.30); GFR ESTIMATED > 60; GLUCOSE 83 MG/DL (70-105); POTASSIUM 4.1 MMOL/L (3.6-5.0); SODIUM 138 MMOL/L (135-145)
[2018-06-19 13:01] LABS: BASOPHILS % (AUTO) 1 % (0-10); EOSINOPHILS # (AUTO) 0.2 10^3/uL (0.0-0.3); EOSINOPHILS % (AUTO) 5 % (0-10); HEMATOCRIT 34 % (40-54); LYMPHOCYTES # (AUTO) 0.9 X 10^3 (1.0-4.0); LYMPHOCYTES % (AUTO) 22 % (12-44); MEAN CORPUSCULAR HEMOGLOBIN 27 PG (25-34); MEAN CORPUSCULAR HGB CONC 33 G/DL (32-36); MEAN CORPUSCULAR VOLUME 84 FL (80-99); MEAN PLATELET VOLUME 9.1 FL (7.4-10.4); MONOCYTES # (AUTO) 0.7 X 10^3 (0.0-1.0); MONOCYTES % (AUTO) 16 % (0-12); NEUTROPHILS # (AUTO) 2.4 X 10^3 (1.8-7.8); NEUTROPHILS % (AUTO) 57 % (42-75); PLATELET COUNT 181 10^3/uL (130-400); RED CELL DISTRIBUTION WIDTH 16.3 % (10.0-14.5); WHITE BLOOD COUNT 4.3 10^3/uL (4.3-11.0)
[2018-06-19 13:24] LABS: BUN/CREATININE RATIO 15; CALCIUM 9.8 MG/DL (8.5-10.1); CARBON DIOXIDE 24 MMOL/L (21-32); CHLORIDE 106 MMOL/L (98-107); CREATININE SERUM 0.85 MG/DL (0.60-1.30); GFR ESTIMATED > 60; GLUCOSE 90 MG/DL (70-105); SODIUM 137 MMOL/L (135-145)
[2018-06-26 13:03] LABS: BASOPHILS % (AUTO) 0 % (0-10); EOSINOPHILS # (AUTO) 0.2 10^3/uL (0.0-0.3); EOSINOPHILS % (AUTO) 4 % (0-10); HEMATOCRIT 35 % (40-54); HEMOGLOBIN 11.5 G/DL (13.3-17.7); LYMPHOCYTES # (AUTO) 0.7 X 10^3 (1.0-4.0); LYMPHOCYTES % (AUTO) 14 % (12-44); MEAN CORPUSCULAR HEMOGLOBIN 27 PG (25-34); MEAN CORPUSCULAR HGB CONC 33 G/DL (32-36); MEAN CORPUSCULAR VOLUME 84 FL (80-99); MEAN PLATELET VOLUME 8.9 FL (7.4-10.4); MONOCYTES # (AUTO) 0.7 X 10^3 (0.0-1.0); MONOCYTES % (AUTO) 13 % (0-12); NEUTROPHILS # (AUTO) 3.5 X 10^3 (1.8-7.8); NEUTROPHILS % (AUTO) 68 % (42-75); PLATELET COUNT 170 10^3/uL (130-400); RED CELL DISTRIBUTION WIDTH 17.3 % (10.0-14.5); WHITE BLOOD COUNT 5.2 10^3/uL (4.3-11.0)
[2018-06-26 13:27] LABS: ALANINE AMINOTRANSFERASE 13 U/L (0-55); ALBUMIN 3.8 GM/DL (3.2-4.5); ALKALINE PHOSPHATASE 41 U/L (40-136); BILIRUBIN,TOTAL 0.4 MG/DL (0.1-1.0); BUN/CREATININE RATIO 13; CALCIUM 9.9 MG/DL (8.5-10.1); CARBON DIOXIDE 27 MMOL/L (21-32); CHLORIDE 105 MMOL/L (98-107); CREATININE SERUM 1.05 MG/DL (0.60-1.30); GFR ESTIMATED > 60; GLUCOSE 99 MG/DL (70-105); MAGNESIUM 2.1 MG/DL (1.8-2.4); POTASSIUM 4.2 MMOL/L (3.6-5.0); SODIUM 138 MMOL/L (135-145); TOTAL PROTEIN 6.5 GM/DL (6.4-8.2)
[2018-07-04 14:26] LABS: BASOPHILS % (AUTO) 0 % (0-10); EOSINOPHILS % (AUTO) 1 % (0-10); HEMATOCRIT 40 % (40-54); HEMOGLOBIN 13.4 G/DL (13.3-17.7); LYMPHOCYTES # (AUTO) 0.2 X 10^3 (1.0-4.0); LYMPHOCYTES % (AUTO) 5 % (12-44); MEAN CORPUSCULAR HEMOGLOBIN 28 PG (25-34); MEAN CORPUSCULAR HGB CONC 34 G/DL (32-36); MEAN CORPUSCULAR VOLUME 83 FL (80-99); MONOCYTES # (AUTO) 0.9 X 10^3 (0.0-1.0); MONOCYTES % (AUTO) 19 % (0-12); NEUTROPHILS # (AUTO) 3.4 X 10^3 (1.8-7.8); NEUTROPHILS % (AUTO) 75 % (42-75); PLATELET COUNT 207 10^3/uL (130-400); RED CELL DISTRIBUTION WIDTH 19.4 % (10.0-14.5); WHITE BLOOD COUNT 4.6 10^3/uL (4.3-11.0)
[2018-07-04 14:41] LABS: BUN/CREATININE RATIO 17; CALCIUM 9.4 MG/DL (8.5-10.1); CARBON DIOXIDE 21 MMOL/L (21-32); CHLORIDE 98 MMOL/L (98-107); CREATININE SERUM 0.87 MG/DL (0.60-1.30); GFR ESTIMATED > 60; GLUCOSE 105 MG/DL (70-105); POTASSIUM 4.2 MMOL/L (3.6-5.0); SODIUM 130 MMOL/L (135-145)
[2018-07-12 13:25] LABS: BASOPHILS % (AUTO) 1 % (0-10); EOSINOPHILS # (AUTO) 0.5 10^3/uL (0.0-0.3); EOSINOPHILS % (AUTO) 9 % (0-10); HEMATOCRIT 37 % (40-54); HEMOGLOBIN 12.3 G/DL (13.3-17.7); LYMPHOCYTES # (AUTO) 0.6 X 10^3 (1.0-4.0); LYMPHOCYTES % (AUTO) 11 % (12-44); MEAN CORPUSCULAR HEMOGLOBIN 28 PG (25-34); MEAN CORPUSCULAR HGB CONC 33 G/DL (32-36); MEAN CORPUSCULAR VOLUME 83 FL (80-99); MEAN PLATELET VOLUME 8.6 FL (7.4-10.4); MONOCYTES # (AUTO) 1.1 X 10^3 (0.0-1.0); MONOCYTES % (AUTO) 19 % (0-12); NEUTROPHILS # (AUTO) 3.5 X 10^3 (1.8-7.8); NEUTROPHILS % (AUTO) 61 % (42-75); PLATELET COUNT 269 10^3/uL (130-400); RED CELL DISTRIBUTION WIDTH 19.3 % (10.0-14.5); WHITE BLOOD COUNT 5.8 10^3/uL (4.3-11.0)
[2018-07-12 13:40] LABS: BUN/CREATININE RATIO 12; CALCIUM 9.1 MG/DL (8.5-10.1); CARBON DIOXIDE 23 MMOL/L (21-32); CHLORIDE 103 MMOL/L (98-107); CREATININE SERUM 0.92 MG/DL (0.60-1.30); GFR ESTIMATED > 60; GLUCOSE 91 MG/DL (70-105); POTASSIUM 4.8 MMOL/L (3.6-5.0); SODIUM 136 MMOL/L (135-145)
[2018-07-19 08:27] LABS: BASOPHILS % (AUTO) 1 % (0-10); EOSINOPHILS # (AUTO) 0.3 10^3/uL (0.0-0.3); EOSINOPHILS % (AUTO) 7 % (0-10); HEMATOCRIT 35 % (40-54); HEMOGLOBIN 11.7 G/DL (13.3-17.7); LYMPHOCYTES # (AUTO) 0.6 X 10^3 (1.0-4.0); LYMPHOCYTES % (AUTO) 13 % (12-44); MEAN CORPUSCULAR HEMOGLOBIN 28 PG (25-34); MEAN CORPUSCULAR HGB CONC 33 G/DL (32-36); MEAN CORPUSCULAR VOLUME 84 FL (80-99); MEAN PLATELET VOLUME 8.6 FL (7.4-10.4); MONOCYTES # (AUTO) 0.7 X 10^3 (0.0-1.0); MONOCYTES % (AUTO) 16 % (0-12); NEUTROPHILS # (AUTO) 2.7 X 10^3 (1.8-7.8); NEUTROPHILS % (AUTO) 63 % (42-75); PLATELET COUNT 236 10^3/uL (130-400); RED CELL DISTRIBUTION WIDTH 20.4 % (10.0-14.5); WHITE BLOOD COUNT 4.3 10^3/uL (4.3-11.0)
[2018-07-19 08:47] LABS: ALANINE AMINOTRANSFERASE 10 U/L (0-55); ALBUMIN 3.4 GM/DL (3.2-4.5); ALKALINE PHOSPHATASE 39 U/L (40-136); BILIRUBIN,TOTAL 0.2 MG/DL (0.1-1.0); BUN/CREATININE RATIO 15; CALCIUM 9.4 MG/DL (8.5-10.1); CARBON DIOXIDE 24 MMOL/L (21-32); CHLORIDE 107 MMOL/L (98-107); CREATININE SERUM 0.92 MG/DL (0.60-1.30); GFR ESTIMATED > 60; GLUCOSE 89 MG/DL (70-105); POTASSIUM 3.9 MMOL/L (3.6-5.0); SODIUM 140 MMOL/L (135-145)
[2018-08-09 13:23] LABS: BILIRUBIN,TOTAL 0.3 MG/DL (0.1-1.0); BUN/CREATININE RATIO 10; CALCIUM 9.2 MG/DL (8.5-10.1); CARBON DIOXIDE 23 MMOL/L (21-32); CHLORIDE 109 MMOL/L (98-107); CREATININE SERUM 1.03 MG/DL (0.60-1.30); GFR ESTIMATED > 60; GLUCOSE 86 MG/DL (70-105); POTASSIUM 4.4 MMOL/L (3.6-5.0); SODIUM 139 MMOL/L (135-145)
[2018-08-09 13:24] LABS: ALANINE AMINOTRANSFERASE 15 U/L (0-55); ALBUMIN 3.6 GM/DL (3.2-4.5); ALKALINE PHOSPHATASE 54 U/L (40-136); TOTAL PROTEIN 6.2 GM/DL (6.4-8.2)
[2018-08-09 13:50] LABS: BASOPHILS % (AUTO) 1 % (0-10); EOSINOPHILS # (AUTO) 0.2 10^3/uL (0.0-0.3); EOSINOPHILS % (AUTO) 4 % (0-10); HEMATOCRIT 35 % (40-54); HEMOGLOBIN 11.5 G/DL (13.3-17.7); LYMPHOCYTES # (AUTO) 0.9 X 10^3 (1.0-4.0); LYMPHOCYTES % (AUTO) 23 % (12-44); MEAN CORPUSCULAR HEMOGLOBIN 29 PG (25-34); MEAN CORPUSCULAR HGB CONC 33 G/DL (32-36); MEAN CORPUSCULAR VOLUME 87 FL (80-99); MEAN PLATELET VOLUME 8.6 FL (7.4-10.4); MONOCYTES # (AUTO) 0.8 X 10^3 (0.0-1.0); MONOCYTES % (AUTO) 21 % (0-12); NEUTROPHILS # (AUTO) 1.9 X 10^3 (1.8-7.8); NEUTROPHILS % (AUTO) 51 % (42-75); PLATELET COUNT 192 10^3/uL (130-400); RED CELL DISTRIBUTION WIDTH 20.8 % (10.0-14.5); WHITE BLOOD COUNT 3.8 10^3/uL (4.3-11.0)
[2018-08-18 10:04] LABS: BASOPHILS % (AUTO) 1 % (0-10); EOSINOPHILS # (AUTO) 0.1 10^3/uL (0.0-0.3); EOSINOPHILS % (AUTO) 2 % (0-10); HEMATOCRIT 37 % (40-54); HEMOGLOBIN 12.2 G/DL (13.3-17.7); LYMPHOCYTES # (AUTO) 1.2 X 10^3 (1.0-4.0); LYMPHOCYTES % (AUTO) 29 % (12-44); MEAN CORPUSCULAR HEMOGLOBIN 29 PG (25-34); MEAN CORPUSCULAR HGB CONC 33 G/DL (32-36); MEAN CORPUSCULAR VOLUME 86 FL (80-99); MEAN PLATELET VOLUME 8.7 FL (7.4-10.4); MONOCYTES # (AUTO) 0.8 X 10^3 (0.0-1.0); MONOCYTES % (AUTO) 19 % (0-12); NEUTROPHILS # (AUTO) 2.1 X 10^3 (1.8-7.8); NEUTROPHILS % (AUTO) 50 % (42-75); PLATELET COUNT 202 10^3/uL (130-400); RED CELL DISTRIBUTION WIDTH 20.4 % (10.0-14.5); WHITE BLOOD COUNT 4.1 10^3/uL (4.3-11.0)
[2018-08-18 10:21] LABS: BUN/CREATININE RATIO 13; CALCIUM 9.5 MG/DL (8.5-10.1); CARBON DIOXIDE 20 MMOL/L (21-32); CHLORIDE 106 MMOL/L (98-107); CREATININE SERUM 1.03 MG/DL (0.60-1.30); GFR ESTIMATED > 60; GLUCOSE 87 MG/DL (70-105); POTASSIUM 4.4 MMOL/L (3.6-5.0); SODIUM 135 MMOL/L (135-145)
[2018-08-23 09:53] LABS: BASOPHILS % (AUTO) 0 % (0-10); EOSINOPHILS # (AUTO) 0.1 10^3/uL (0.0-0.3); EOSINOPHILS % (AUTO) 2 % (0-10); HEMATOCRIT 35 % (40-54); HEMOGLOBIN 11.4 G/DL (13.3-17.7); LYMPHOCYTES # (AUTO) 0.7 X 10^3 (1.0-4.0); LYMPHOCYTES % (AUTO) 22 % (12-44); MEAN CORPUSCULAR HEMOGLOBIN 29 PG (25-34); MEAN CORPUSCULAR HGB CONC 33 G/DL (32-36); MEAN CORPUSCULAR VOLUME 88 FL (80-99); MEAN PLATELET VOLUME 8.7 FL (7.4-10.4); MONOCYTES # (AUTO) 0.6 X 10^3 (0.0-1.0); MONOCYTES % (AUTO) 18 % (0-12); NEUTROPHILS # (AUTO) 1.9 X 10^3 (1.8-7.8); NEUTROPHILS % (AUTO) 58 % (42-75); PLATELET COUNT 192 10^3/uL (130-400); RED CELL DISTRIBUTION WIDTH 20.3 % (10.0-14.5); WHITE BLOOD COUNT 3.3 10^3/uL (4.3-11.0)
[2018-08-23 10:15] LABS: BUN/CREATININE RATIO 14; CALCIUM 9.5 MG/DL (8.5-10.1); CARBON DIOXIDE 24 MMOL/L (21-32); CHLORIDE 109 MMOL/L (98-107); CREATININE SERUM 1.09 MG/DL (0.60-1.30); GFR ESTIMATED > 60; GLUCOSE 91 MG/DL (70-105); POTASSIUM 4.2 MMOL/L (3.6-5.0); SODIUM 140 MMOL/L (135-145)
[~2018-08-31 09:12] MED LIST changes: +NS IV 1000 ML (CANCER CTR) 1,000 ML ONE
[2018-08-31 09:58] LABS: BASOPHILS % (AUTO) 0 % (0-10); EOSINOPHILS # (AUTO) 0.1 10^3/uL (0.0-0.3); EOSINOPHILS % (AUTO) 3 % (0-10); HEMATOCRIT 36 % (40-54); HEMOGLOBIN 11.7 G/DL (13.3-17.7); LYMPHOCYTES # (AUTO) 0.8 X 10^3 (1.0-4.0); LYMPHOCYTES % (AUTO) 26 % (12-44); MEAN CORPUSCULAR HEMOGLOBIN 30 PG (25-34); MEAN CORPUSCULAR HGB CONC 33 G/DL (32-36); MEAN CORPUSCULAR VOLUME 90 FL (80-99); MEAN PLATELET VOLUME 8.8 FL (7.4-10.4); MONOCYTES # (AUTO) 0.6 X 10^3 (0.0-1.0); MONOCYTES % (AUTO) 20 % (0-12); NEUTROPHILS # (AUTO) 1.7 X 10^3 (1.8-7.8); NEUTROPHILS % (AUTO) 51 % (42-75); PLATELET COUNT 190 10^3/uL (130-400); RED CELL DISTRIBUTION WIDTH 20.9 % (10.0-14.5); WHITE BLOOD COUNT 3.2 10^3/uL (4.3-11.0)
[2018-08-31 10:21] LABS: ALANINE AMINOTRANSFERASE 12 U/L (0-55); ALBUMIN 3.8 GM/DL (3.2-4.5); ALKALINE PHOSPHATASE 45 U/L (40-136); BILIRUBIN,TOTAL 0.4 MG/DL (0.1-1.0); BUN/CREATININE RATIO 16; CALCIUM 9.3 MG/DL (8.5-10.1); CARBON DIOXIDE 26 MMOL/L (21-32); CHLORIDE 107 MMOL/L (98-107); CREATININE SERUM 1.15 MG/DL (0.60-1.30); GFR ESTIMATED > 60; GLUCOSE 100 MG/DL (70-105); POTASSIUM 4.5 MMOL/L (3.6-5.0); SODIUM 140 MMOL/L (135-145); TOTAL PROTEIN 6.5 GM/DL (6.4-8.2)
== END 2018-09-06 | disposition home or self-care (01) ==
LOC: ONC 09:12
PROVIDERS: ATTEND Internal Medicine Hematology & Oncology
DX: Z51.0 Encounter for antineoplastic radiation therapy (principal); C20 Malignant neoplasm of rectum; E78.00 Pure hypercholesterolemia, unspecified; F41.9 Anxiety disorder, unspecified; F32.9 Major depressive disorder, single episode, unspecified; N40.0 Benign prostatic hyperplasia without lower urinary tract symptoms; Z85.51 Personal history of malignant neoplasm of bladder; Z87.891 Personal history of nicotine dependence; Z79.899 Other long term (current) drug therapy
CPT/HCPCS: 36415; 77307; 77334; 77336; 77417; 80048; 80053; 83735; 85025; 96360; 99212; 99213

== ENCOUNTER 2018-12-01 08:16 | Outpatient (RCR) | payer MEDICARE, OTHER ==
[2018-09-15 08:11] LABS: BASOPHILS % (AUTO) 0 % (0-10); EOSINOPHILS # (AUTO) 0.1 10^3/uL (0.0-0.3); EOSINOPHILS % (AUTO) 2 % (0-10); HEMATOCRIT 35 % (40-54); HEMOGLOBIN 11.4 G/DL (13.3-17.7); LYMPHOCYTES # (AUTO) 0.7 X 10^3 (1.0-4.0); LYMPHOCYTES % (AUTO) 23 % (12-44); MEAN CORPUSCULAR HEMOGLOBIN 30 PG (25-34); MEAN CORPUSCULAR HGB CONC 33 G/DL (32-36); MEAN CORPUSCULAR VOLUME 92 FL (80-99); MONOCYTES # (AUTO) 0.7 X 10^3 (0.0-1.0); MONOCYTES % (AUTO) 20 % (0-12); NEUTROPHILS # (AUTO) 1.8 X 10^3 (1.8-7.8); NEUTROPHILS % (AUTO) 55 % (42-75); PLATELET COUNT 176 10^3/uL (130-400); RED CELL DISTRIBUTION WIDTH 19.7 % (10.0-14.5); WHITE BLOOD COUNT 3.3 10^3/uL (4.3-11.0)
[2018-09-15 08:43] LABS: ALANINE AMINOTRANSFERASE 11 U/L (0-55); ALBUMIN 3.8 GM/DL (3.2-4.5); ALKALINE PHOSPHATASE 45 U/L (40-136); BILIRUBIN,TOTAL 0.7 MG/DL (0.1-1.0); BUN/CREATININE RATIO 13; CALCIUM 9.8 MG/DL (8.5-10.1); CARBON DIOXIDE 23 MMOL/L (21-32); CHLORIDE 107 MMOL/L (98-107); CREATININE SERUM 1.12 MG/DL (0.60-1.30); GFR ESTIMATED > 60; GLUCOSE 87 MG/DL (70-105); POTASSIUM 4.3 MMOL/L (3.6-5.0); SODIUM 139 MMOL/L (135-145); TOTAL PROTEIN 6.5 GM/DL (6.4-8.2)
[2018-10-13 08:22] LABS: BASOPHILS % (AUTO) 0 % (0-10); EOSINOPHILS # (AUTO) 0.1 10^3/uL (0.0-0.3); EOSINOPHILS % (AUTO) 4 % (0-10); HEMATOCRIT 35 % (40-54); HEMOGLOBIN 11.7 G/DL (13.3-17.7); LYMPHOCYTES # (AUTO) 0.7 X 10^3 (1.0-4.0); LYMPHOCYTES % (AUTO) 24 % (12-44); MEAN CORPUSCULAR HEMOGLOBIN 32 PG (25-34); MEAN CORPUSCULAR HGB CONC 33 G/DL (32-36); MEAN CORPUSCULAR VOLUME 96 FL (80-99); MEAN PLATELET VOLUME 9.3 FL (7.4-10.4); MONOCYTES # (AUTO) 0.6 X 10^3 (0.0-1.0); MONOCYTES % (AUTO) 19 % (0-12); NEUTROPHILS # (AUTO) 1.6 X 10^3 (1.8-7.8); NEUTROPHILS % (AUTO) 53 % (42-75); PLATELET COUNT 167 10^3/uL (130-400); RED CELL DISTRIBUTION WIDTH 18.5 % (10.0-14.5); WHITE BLOOD COUNT 3.1 10^3/uL (4.3-11.0)
[2018-10-13 08:43] LABS: ALANINE AMINOTRANSFERASE 12 U/L (0-55); ALBUMIN 3.9 GM/DL (3.2-4.5); ALKALINE PHOSPHATASE 46 U/L (40-136); BILIRUBIN,TOTAL 0.5 MG/DL (0.1-1.0); BUN/CREATININE RATIO 17; CALCIUM 9.3 MG/DL (8.5-10.1); CARBON DIOXIDE 24 MMOL/L (21-32); CHLORIDE 109 MMOL/L (98-107); CREATININE SERUM 1.12 MG/DL (0.60-1.30); GFR ESTIMATED > 60; GLUCOSE 86 MG/DL (70-105); POTASSIUM 4.5 MMOL/L (3.6-5.0); SODIUM 140 MMOL/L (135-145); TOTAL PROTEIN 6.6 GM/DL (6.4-8.2)
[2018-11-10 08:10] LABS: BASOPHILS % (AUTO) 1 % (0-10); EOSINOPHILS # (AUTO) 0.1 10^3/uL (0.0-0.3); EOSINOPHILS % (AUTO) 4 % (0-10); HEMATOCRIT 37 % (40-54); HEMOGLOBIN 12.4 G/DL (13.3-17.7); LYMPHOCYTES # (AUTO) 0.9 X 10^3 (1.0-4.0); LYMPHOCYTES % (AUTO) 25 % (12-44); MEAN CORPUSCULAR HEMOGLOBIN 32 PG (25-34); MEAN CORPUSCULAR HGB CONC 33 G/DL (32-36); MEAN CORPUSCULAR VOLUME 96 FL (80-99); MEAN PLATELET VOLUME 8.9 FL (7.4-10.4); MONOCYTES # (AUTO) 0.7 X 10^3 (0.0-1.0); MONOCYTES % (AUTO) 19 % (0-12); NEUTROPHILS # (AUTO) 1.9 X 10^3 (1.8-7.8); NEUTROPHILS % (AUTO) 53 % (42-75); PLATELET COUNT 151 10^3/uL (130-400); RED CELL DISTRIBUTION WIDTH 18.4 % (10.0-14.5); WHITE BLOOD COUNT 3.7 10^3/uL (4.3-11.0)
[2018-11-10 08:28] LABS: ALANINE AMINOTRANSFERASE 11 U/L (0-55); ALBUMIN 3.9 GM/DL (3.2-4.5); ALKALINE PHOSPHATASE 47 U/L (40-136); BILIRUBIN,TOTAL 0.5 MG/DL (0.1-1.0); BUN/CREATININE RATIO 17; CALCIUM 9.1 MG/DL (8.5-10.1); CARBON DIOXIDE 23 MMOL/L (21-32); CHLORIDE 110 MMOL/L (98-107); CREATININE SERUM 1.12 MG/DL (0.60-1.30); GFR ESTIMATED > 60; GLUCOSE 91 MG/DL (70-105); POTASSIUM 4.2 MMOL/L (3.6-5.0); SODIUM 139 MMOL/L (135-145); TOTAL PROTEIN 6.5 GM/DL (6.4-8.2)
[~2018-12-01 08:16] MED LIST changes: -NS IV 1000 ML (CANCER CTR) 1,000 ML ONE; -ROSU5TAB12 PO; +ROSU5TAB13 PO
[2018-12-01 08:40] LABS: BASOPHILS % (AUTO) 0 % (0-10); EOSINOPHILS # (AUTO) 0.1 10^3/uL (0.0-0.3); EOSINOPHILS % (AUTO) 3 % (0-10); HEMATOCRIT 38 % (40-54); HEMOGLOBIN 13.1 G/DL (13.3-17.7); LYMPHOCYTES # (AUTO) 0.8 X 10^3 (1.0-4.0); LYMPHOCYTES % (AUTO) 21 % (12-44); MEAN CORPUSCULAR HEMOGLOBIN 32 PG (25-34); MEAN CORPUSCULAR HGB CONC 34 G/DL (32-36); MEAN CORPUSCULAR VOLUME 95 FL (80-99); MEAN PLATELET VOLUME 9.1 FL (7.4-10.4); MONOCYTES # (AUTO) 0.6 X 10^3 (0.0-1.0); MONOCYTES % (AUTO) 16 % (0-12); NEUTROPHILS # (AUTO) 2.3 X 10^3 (1.8-7.8); NEUTROPHILS % (AUTO) 60 % (42-75); PLATELET COUNT 169 10^3/uL (130-400); RED CELL DISTRIBUTION WIDTH 18.3 % (10.0-14.5); WHITE BLOOD COUNT 3.9 10^3/uL (4.3-11.0)
[2018-12-01 09:00] LABS: ALANINE AMINOTRANSFERASE 14 U/L (0-55); ALBUMIN 4.2 GM/DL (3.2-4.5); ALKALINE PHOSPHATASE 51 U/L (40-136); BILIRUBIN,TOTAL 0.6 MG/DL (0.1-1.0); BUN/CREATININE RATIO 14; CALCIUM 9.4 MG/DL (8.5-10.1); CARBON DIOXIDE 24 MMOL/L (21-32); CHLORIDE 107 MMOL/L (98-107); CREATININE SERUM 1.12 MG/DL (0.60-1.30); GFR ESTIMATED > 60; GLUCOSE 94 MG/DL (70-105); POTASSIUM 4.3 MMOL/L (3.6-5.0); SODIUM 139 MMOL/L (135-145)
== END 2018-12-14 | disposition home or self-care (01) ==
LOC: ONC 08:16
PROVIDERS: ATTEND Internal Medicine Hematology & Oncology
DX: C20 Malignant neoplasm of rectum (principal); E78.00 Pure hypercholesterolemia, unspecified; F41.9 Anxiety disorder, unspecified; F32.9 Major depressive disorder, single episode, unspecified; N40.0 Benign prostatic hyperplasia without lower urinary tract symptoms; Z85.51 Personal history of malignant neoplasm of bladder; Z87.891 Personal history of nicotine dependence; Z79.899 Other long term (current) drug therapy
CPT/HCPCS: 36415; 80053; 83615; 85025; 99213

== ENCOUNTER 2019-03-23 11:05 | Outpatient (CLI) | payer MEDICARE, OTHER ==
[~2019-03-23] VITALS: Ht 172 cm; Wt 60.7 kg
[~2019-03-23 11:05] MED LIST changes: -BARIUM SUSPENSION 2.1% (VANILLA SILQ) 450 ML PO ONE; -CATHETER FLUSH 10 ML SYR IV PRN; -HOLD METFORMIN - RECEIVED CONTRAST 20 ML VIAL IV SCH; -IOHEXOL 350 MG/ML 100 ML (OMNIPAQUE 350) VIAL IV ONE; -NS 100 ML (IVPB) BAG IV ONE; -SERT25TA5 PO
[2019-03-23] MEDS ORDERED: SERT25TA5 PO (11:21)
[2019-03-23 11:54] VITALS: BP 142/90
== END 2019-03-23 12:04 | disposition home or self-care (01) ==
LOC: PREOP 11:05
PROVIDERS: ATTEND Surgery
DX: Z01.818 Encounter for other preprocedural examination (principal)
CPT/HCPCS: 87081

== ENCOUNTER → 2019-03-23 | Outpatient (CLI) | payer MEDICARE, OTHER ==
[~2019-03-23] MED LIST changes: +BARIUM SUSPENSION 2.1% (VANILLA SILQ) 450 ML PO ONE; +CATHETER FLUSH 10 ML SYR IV PRN; +HOLD METFORMIN - RECEIVED CONTRAST 20 ML VIAL IV SCH; +IOHEXOL 350 MG/ML 100 ML (OMNIPAQUE 350) VIAL IV ONE; +NS 100 ML (IVPB) BAG IV ONE; +SERT25TA5 PO; -TAMS0.4C98 PO; +TMSL.4C PO
--- NOTE | 2019-03-23 13:51 | Diagnostic Imaging Report ---
PROCEDURE: CT chest with contrast, CT abdomen and pelvis with and without contrast. TECHNIQUE: Pre and post intravenous contrast axial imaging of the abdomen and pelvis and post contrast axial imaging of the chest were performed. Auto Exposure Controls were utilized during the CT exam to meet ALARA standards for radiation dose reduction. INDICATION: Rectal cancer. COMPARISON: No prior chest CT is available for comparison. Comparison is made with prior CT abdomen and pelvis from 03/31/2018. CT CHEST: No axillary lymphadenopathy is identified. No definite mediastinal or hilar lymphadenopathy is detected. No pericardial or pleural fluid is detected. Calcified granuloma superior segment left lower lobe is noted. No definite noncalcified nodules or masses are seen. No infiltrates are detected. IMPRESSION: Unremarkable CT of the chest. No thoracic lymphadenopathy or evidence of pulmonary metastatic disease is identified. CT ABDOMEN AND PELVIS: Probable cyst in the dome of the right lobe of the liver appear stable. No new liver mass is detected. Gallbladder is unremarkable. No biliary duct dilatation is identified. The pancreas and spleen are unremarkable. No adrenal mass is detected. The kidneys are unremarkable. Aorta is non-aneurysmal. Previously noted small bowel distention has resolved. No definite findings to suggest small bowel obstruction are identified on today's study. There are postop changes at the rectosigmoid junction. There is moderate stool throughout the right colon as well as the transverse colon. No free fluid or fluid collection is identified. No definite central retroperitoneal or mesenteric lymphadenopathy is detected. No definite inguinal or iliac lymphadenopathy is detected. Partially filled urinary bladder is unremarkable. Prostate contains multiple calcifications. The bony structures are unremarkable. IMPRESSION: Unremarkable CT of the abdomen and pelvis. No lymphadenopathy or evidence of metastatic disease is detected. There are postoperative changes. Previously noted findings of possible small bowel obstruction have resolved. There is moderate stool in the right colon and transverse colon. Study is otherwise unremarkable. Dictated by: Dictated on workstation # [id number]
== END ==
LOC: RAD 12:02
PROVIDERS: ATTEND Internal Medicine Hematology & Oncology
DX: C20 Malignant neoplasm of rectum (principal); Z92.3 Personal history of irradiation
CPT/HCPCS: 71260; 74178

== ENCOUNTER 2019-03-30 09:55 | Outpatient (RCR) | payer MEDICARE, OTHER ==
[2019-03-23 12:03] LABS: BASOPHILS % (AUTO) 0 % (0-10); EOSINOPHILS # (AUTO) 0.1 10^3/uL (0.0-0.3); EOSINOPHILS % (AUTO) 2 % (0-10); HEMATOCRIT 40 % (40-54); HEMOGLOBIN 13.5 G/DL (13.3-17.7); LYMPHOCYTES # (AUTO) 0.9 X 10^3 (1.0-4.0); LYMPHOCYTES % (AUTO) 21 % (12-44); MEAN CORPUSCULAR HEMOGLOBIN 30 PG (25-34); MEAN CORPUSCULAR HGB CONC 34 G/DL (32-36); MEAN CORPUSCULAR VOLUME 89 FL (80-99); MEAN PLATELET VOLUME 8.7 FL (7.4-10.4); MONOCYTES # (AUTO) 0.7 X 10^3 (0.0-1.0); MONOCYTES % (AUTO) 16 % (0-12); NEUTROPHILS # (AUTO) 2.6 X 10^3 (1.8-7.8); NEUTROPHILS % (AUTO) 61 % (42-75); PLATELET COUNT 160 10^3/uL (130-400); RED CELL DISTRIBUTION WIDTH 13.6 % (10.0-14.5); WHITE BLOOD COUNT 4.2 10^3/uL (4.3-11.0)
[2019-03-23 12:19] LABS: ALANINE AMINOTRANSFERASE 13 U/L (0-55); ALBUMIN 4.2 GM/DL (3.2-4.5); ALKALINE PHOSPHATASE 50 U/L (40-136); BILIRUBIN,TOTAL 0.4 MG/DL (0.1-1.0); BUN/CREATININE RATIO 17; CALCIUM 9.6 MG/DL (8.5-10.1); CARBON DIOXIDE 25 MMOL/L (21-32); CHLORIDE 108 MMOL/L (98-107); CREATININE SERUM 1.01 MG/DL (0.60-1.30); GFR ESTIMATED > 60; GLUCOSE 90 MG/DL (70-105); POTASSIUM 4.4 MMOL/L (3.6-5.0); SODIUM 140 MMOL/L (135-145); TOTAL PROTEIN 7.2 GM/DL (6.4-8.2)
[~2019-03-30 09:55] MED LIST changes: +SERT25TA5 PO
[2019-04-05] MEDS ORDERED: HYDR-34 PO (08:33)
== END 2019-06-21 | disposition home or self-care (01) ==
LOC: ONC 09:55
PROVIDERS: ATTEND Internal Medicine Hematology & Oncology
DX: C20 Malignant neoplasm of rectum (principal); E78.00 Pure hypercholesterolemia, unspecified; F41.9 Anxiety disorder, unspecified; F32.9 Major depressive disorder, single episode, unspecified; N40.0 Benign prostatic hyperplasia without lower urinary tract symptoms; Z85.51 Personal history of malignant neoplasm of bladder; Z87.891 Personal history of nicotine dependence; Z79.899 Other long term (current) drug therapy
CPT/HCPCS: 80053; 82378; 83615; 85025; 99213

== ENCOUNTER 2019-04-05 07:49 | Day surgery (SDC) | payer MEDICARE, OTHER ==
[2019-04-05] VITALS (12 sets, daily range): BP systolic 89–136; BP diastolic 57–80
[~2019-04-05] VITALS: Ht 172.7 cm; Wt 60.7 kg
[2019-04-05] MEDS ORDERED: BUP/EPI 0.5% 1:200,000 (SENSORCAINE) 30 ML VIAL ONE (08:16)
--- NOTE | 2019-04-05 08:30 | Progress Note-Pre Operative ---
Pre-Operative Progress Note H&P Reviewed The H&P was reviewed, patient examined and no changes noted. Date Seen by Provider: Apr 05, 2019 Time Seen by Provider: 08:30 Date H&P Reviewed: Apr 05, 2019 Time H&P Reviewed: 08:25 Pre-Operative Diagnosis: Incisional hernia, Hx of colon cancer LANCE ARREDONDO APRN Apr 05, 2019 08:30
[2019-04-05] MEDS ORDERED: HYDR-3816 PO (08:33)
--- NOTE | 2019-04-05 08:35 | Discharge Inst-Surgical ---
D/C Lap Instructions-KIDO Reconcile Patient Problems Problems Reviewed?: Yes New, Converted, or Re-Newed RX: RX on Chart Follow Up Appt in 2 weeks Activity as tolerated No driving for 24 hours No driving while on pain medications Incentive Spirometry use every 2 hours while awake High Fiber Diet 25g or more per day Avoid Alcohol, Caffeine, Spicy [place] and Acid foods. Drink 64 fluid oz or more of fluids per day. No heavy lifting/exertion for 6 weeks. Symptoms to Report: Fever over 101 degree F, Nausea/Vomiting Infection Signs and Symptoms to report: Increased redness, Foul odor of wound, Increased drainage Bathing instructions: May shower Operative Area Clean/Dry; Keep incision clean/dry LANCE ARREDONDO APRN Apr 05, 2019 08:35
[2019-04-05] MEDS: LACTATED RINGERS 1,000 ML IV PRN ×2 (08:39→11:52)
[2019-04-05] MEDS ORDERED: ONDANSETRON 4 MG/2 ML (SDV) Z0FRAN IVP PRN ×2 (08:45→12:30)
[2019-04-05] MEDS ORDERED: ACETAMINOPHEN 325 MG TABLET PO PRN (08:45)
[2019-04-05] MEDS ORDERED: HYDROcodone/APAP 5 MG/325 MG (LORTAB) TAB PO ONE (08:45)
[2019-04-05] MEDS ORDERED: morphine INJ 10 MG/ML 1ML (SYR OR VIAL) IVP PRN (08:45)
[2019-04-05] MEDS ORDERED: ceFAZolin INJECTION 1,000 MG in WATER (STERILE) FOR INJECTION 10 ML IV ONE (08:45)
[2019-04-05] MEDS ORDERED: DEXAMETHASONE 10 MG/ML (DECADRON) 1 ML VIAL ONE (08:50)
[2019-04-05] MEDS ORDERED: ONDANSETRON 4 MG/2 ML (SDV) Z0FRAN ONE (08:50)
[2019-04-05] MEDS ORDERED: LIDOCAINE PF 2% 5 ML (XYLOCAINE) VIAL ONE (08:50)
[2019-04-05] MEDS ORDERED: proPOfol 200 MG/20 ML (DIPRIVAN) VIAL IV ONE (08:50)
[2019-04-05] MEDS ORDERED: fentaNYL INJECTION 100 MCG/2 ML AMP ONE (08:51)
[2019-04-05] MEDS ORDERED: GLYCOPYRROLATE 0.2 MG/ML (ROBINUL) 2 ML VIAL ONE (09:03)
[2019-04-05] MEDS ORDERED: NEOSTIGMINE 3 MG/3 ML VIAL ONE (09:03)
[2019-04-05] MEDS ORDERED: ROCURONIUM 10 MG/ML 5 ML SYRINGE IV ONE (09:03)
[2019-04-05] MEDS ORDERED: SEVOFLURANE (ULTANE) 15 ML INHAL SOLN ONE ×6 (09:03→12:10)
--- NOTE | 2019-04-05 12:07 | Progress Note-Post Operative ---
Post-Operative Progess Note Surgeon (s)/Circulating Nurse (s) Surgeon Dr. Joon Melendrez Circulating Nurse: Preston Arredondo HEEL SORTER Pre-Operative Diagnosis Incisional hernia, Hx of colon cancer Post-Operative Diagnosis Ventral abdominal incisional hernia ( 6cm), Chronic Stage II external and internal hemorrhoids, mild descending colon diverticulosis. Procedure & Operative Findings Date of Procedure 04/05/19 Procedure Performed/Findings Ventral abdominal incisional hernia repair with mesh (6 cm), Colonoscopy Anesthesia Type GET Estimated Blood Loss Estimated blood loss (mL): Minimal Specimens/Packing Specimens Removed None PRESTON ARREDONDO HEEL SORTER Apr 05, 2019 12:07
[2019-04-05] MEDS ORDERED: morphine INJ 10 MG/ML 1ML (SYR OR VIAL) IVP ONE (12:30)
[2019-04-05] MEDS ORDERED: morphine INJ 10 MG/ML 1ML (SYR OR VIAL) ONE (12:38)
--- NOTE | 2019-04-05 13:17 | Anesthesia-General Post-Op ---
General Patient Condition Mental Status/LOC: Same as Preop Cardiovascular: Satisfactory Nausea/Vomiting: Absent Respiratory: Satisfactory Pain: Controlled Complications: Absent Post Op Complications Complications None Follow Up Care/Instructions Patient Instructions None needed. Anesthesia/Patient Condition Patient Condition Patient is doing well, no complaints, stable vital signs, no apparent adverse anesthesia problems. No complications reported per nursing. STELLA HILL CRNA Apr 05, 2019 13:17
[2019-04-05] MEDS ORDERED: oxyCODONE/APAP 5/325MG (PERCOCET 5) TABLET ONE (13:29)
[2019-04-05] MEDS ORDERED: HYDROcodone/APAP 5 MG/325 MG (LORTAB) TAB ONE (13:36)
--- NOTE | 2019-04-05 16:44 | OPERATIVE REPORT ---
DATE OF SERVICE: 04/05/2019 PREOPERATIVE DIAGNOSIS: Ventral abdominal incisional hernia with a history of adenocarcinoma of the sigmoid colon. POSTOPERATIVE DIAGNOSES: 1. Ventral abdominal incisional hernia, 6 x 6 cm in size. 2. Mild chronic stage II external and internal hemorrhoids, normal anastomosis, mild descending colonic diverticulosis. PROCEDURE: 1. Ventral abdominal incisional hernia repair with mesh. 2. Colonoscopy. SURGEON: Attila Franco MD ENVELOPE SEALING MACHINE OPERATOR: Preston Ward APRN. ANESTHESIA: General endotracheal. ESTIMATED BLOOD LOSS: Minimal. FINDINGS: 1. Ventral abdominal incisional hernia, 6 x 6 cm in size. 2. Mild chronic stage II external and internal hemorrhoids, normal anastomosis, mild descending colonic diverticulosis. DISPOSITION: The patient tolerated the procedure well. INDICATIONS: The patient is an 83-year-old male who was found to have a large apple-core lesion of the sigmoid colon, which was biopsied and confirmed to be adenocarcinoma. He underwent a laparoscopic low anterior colorectal resection; however, did have wound complication requiring a wound VAC. This was approximately 1 year ago. Over time, the wound did heal. However, he did develop a large ventral abdominal incisional hernia. He is also in need of a followup colonoscopy. He is otherwise doing well, tolerating regular diet and having normal bowel movements. DESCRIPTION OF PROCEDURE: The patient was brought to the operating room, laid supine on the table. After adequate IV pain and stated medications and general endotracheal intubation, the abdomen was prepped and draped in standard surgical fashion. A 0.5% Marcaine with epinephrine was then used to anesthetize the overlying skin in the midline infraumbilical region and a skin incision made using a 15 blade. The subcutaneous tissue and scar tissue was then dissected out using electrocautery as well as blunt dissection. We then proceeded to take down small bowel as well as omental adhesions using cautery as well as blunt dissection as well as Metzenbaum scissors. Good hemostasis was observed. We then proceeded to clear a rim of the fascia around the defect, which was measured to be 6 cm and round in shape. A 15 cm round coated polypropylene mesh was then placed into the defect and sutured in a transfascial concentric manner using interrupted 0 Prolene sutures. Good hemostasis was observed. The subcutaneous tissue was then reapproximated using 3-0 Vicryl interrupted suture. Skin was closed using 4-0 Monocryl running subcuticular suture. Wound was then cleaned and covered with Dermabond. Under the same anesthesia, we then proceeded with colonoscopy portion of the procedure and the patient was placed in frog leg position. A digital rectal examination was performed, which revealed chronic stage II external and internal hemorrhoids, not actively edematous nor inflamed and no bleeding. Normal sphincter tone was felt and there were no palpable masses. Prostate gland was palpable and appeared normal. The endoscope was then intubated and anus and rectum gently insufflated. The endoscope was then advanced through the valves of [place] of the rectum with no polyps or any neoplasms identified. The area of anastomosis appeared normal with no recurrent tumors. The endoscope was then advanced through the descending colon where a mild descending colonic diverticulosis identified. The endoscope was then advanced to the remainder of the transverse and ascending colon to the cecum. These segments were normal. No other polyps or any lesions identified. The endoscope was then slowly withdrawn while taking a second look and suctioning of residual air with no additional findings. The patient tolerated the procedure well. We will start IV normal pain medication as well as a clear liquid diet. Once he is tolerating clears, has good pain control with oral pain medications, ambulating well, we will discharge him home. He will be instructed to do no heavy lifting or exertion for the next six weeks. We will also advise him to wear the abdominal binder at all times for the next two weeks. He will also need a followup colonoscopy in one year. Job ID: [id number] DocumentID: [id number] Dictated Date: 04/05/2019 12:28:55 Sheet Metal Worker Helper Date: 04/05/2019 16:44:03 Dictated By: ATTILA FRANCO MD
== END 2019-04-05 15:03 | disposition home or self-care (01) ==
LOC: SDC 07:49
PROVIDERS: ATTEND Surgery
DX: K43.2 Incisional hernia without obstruction or gangrene (principal); K64.4 Residual hemorrhoidal skin tags; K64.1 Second degree hemorrhoids; K57.30 Diverticulosis of large intestine without perforation or abscess without bleeding; E78.00 Pure hypercholesterolemia, unspecified; G62.9 Polyneuropathy, unspecified; F32.9 Major depressive disorder, single episode, unspecified; F41.9 Anxiety disorder, unspecified; Z98.0 Intestinal bypass and anastomosis status; Z85.038 Personal history of other malignant neoplasm of large intestine; Z87.891 Personal history of nicotine dependence; Z88.1 Allergy status to other antibiotic agents; Z79.899 Other long term (current) drug therapy; Z80.3 Family history of malignant neoplasm of breast

== ENCOUNTER → 2019-06-29 | Outpatient (CLI) | payer MEDICARE, OTHER ==
[2019-06-29 09:27] LABS: BASOPHILS % (AUTO) 1 % (0-10); EOSINOPHILS # (AUTO) 0.1 10^3/uL (0.0-0.3); EOSINOPHILS % (AUTO) 3 % (0-10); HEMATOCRIT 40 % (40-54); HEMOGLOBIN 13.2 G/DL (13.3-17.7); LYMPHOCYTES # (AUTO) 1.2 X 10^3 (1.0-4.0); LYMPHOCYTES % (AUTO) 29 % (12-44); MEAN CORPUSCULAR HEMOGLOBIN 29 PG (25-34); MEAN CORPUSCULAR HGB CONC 33 G/DL (32-36); MEAN CORPUSCULAR VOLUME 88 FL (80-99); MEAN PLATELET VOLUME 8.5 FL (7.4-10.4); MONOCYTES # (AUTO) 0.7 X 10^3 (0.0-1.0); MONOCYTES % (AUTO) 17 % (0-12); NEUTROPHILS # (AUTO) 2.1 X 10^3 (1.8-7.8); NEUTROPHILS % (AUTO) 51 % (42-75); PLATELET COUNT 184 10^3/uL (130-400); WHITE BLOOD COUNT 4.1 10^3/uL (4.3-11.0)
[2019-06-29 09:54] LABS: ALANINE AMINOTRANSFERASE 15 U/L (0-55); ALBUMIN 3.9 GM/DL (3.2-4.5); ALKALINE PHOSPHATASE 43 U/L (40-136); BILIRUBIN,TOTAL 0.4 MG/DL (0.1-1.0); BUN/CREATININE RATIO 16; CALCIUM 9.1 MG/DL (8.5-10.1); CARBON DIOXIDE 23 MMOL/L (21-32); CHLORIDE 109 MMOL/L (98-107); GFR ESTIMATED > 60; GLUCOSE 76 MG/DL (70-105); POTASSIUM 4.1 MMOL/L (3.6-5.0); SODIUM 139 MMOL/L (135-145); TOTAL PROTEIN 6.7 GM/DL (6.4-8.2)
== END ==
LOC: EDSTATUS 09:15 → ONC 09:16
PROVIDERS: ATTEND Internal Medicine Hematology & Oncology
DX: C20 Malignant neoplasm of rectum (principal); E78.00 Pure hypercholesterolemia, unspecified; F41.9 Anxiety disorder, unspecified; F32.9 Major depressive disorder, single episode, unspecified; N40.0 Benign prostatic hyperplasia without lower urinary tract symptoms; Z85.51 Personal history of malignant neoplasm of bladder; Z87.891 Personal history of nicotine dependence; Z79.899 Other long term (current) drug therapy; Z92.3 Personal history of irradiation
CPT/HCPCS: 80053; 83615; 85025; 99213

== ENCOUNTER → 2020-02-05 | Outpatient (CLI) | payer MEDICARE, OTHER ==
[2020-02-05 14:44] LABS: BASOPHILS % (AUTO) 0 % (0-10); EOSINOPHILS % (AUTO) 1 % (0-10); HEMATOCRIT 45 % (40-54); HEMOGLOBIN 14.5 g/dL (13.3-17.7); LYMPHOCYTES # (AUTO) 1.1 10^3/uL (1.0-4.0); LYMPHOCYTES % (AUTO) 16 % (12-44); MEAN CORPUSCULAR HEMOGLOBIN 29 pg (25-34); MEAN CORPUSCULAR HGB CONC 33 g/dL (32-36); MEAN CORPUSCULAR VOLUME 90 fL (80-99); MONOCYTES # (AUTO) 0.5 10^3/uL (0.0-1.0); MONOCYTES % (AUTO) 7 % (0-12); NEUTROPHILS # (AUTO) 5.5 10^3/uL (1.8-7.8); NEUTROPHILS % (AUTO) 76 % (42-75); PLATELET COUNT 190 10^3/uL (130-400); WHITE BLOOD COUNT 7.3 10^3/uL (4.3-11.0)
[2020-02-05 14:59] LABS: BILIRUBIN,TOTAL 0.5 MG/DL (0.1-1.0); CREATININE SERUM 1.31 MG/DL (0.60-1.30); POTASSIUM 4.5 MMOL/L (3.6-5.0); TOTAL PROTEIN 6.9 GM/DL (6.4-8.2)
== END ==
LOC: ONC 14:19
PROVIDERS: ATTEND Internal Medicine Hematology & Oncology
DX: C20 Malignant neoplasm of rectum (principal); R79.89 Other specified abnormal findings of blood chemistry; Z98.890 Other specified postprocedural states; Z85.51 Personal history of malignant neoplasm of bladder
CPT/HCPCS: 80053; 83615; 85025; G0463; 99213

== ENCOUNTER → 2020-04-11 | Outpatient (CLI) | payer MEDICARE, OTHER ==
[~2020-04-11] MED LIST changes: +SERT-412 PO; +SERT-413 PO; -SERT25TA5 PO; -SERT50TA9 PO
[2020-04-11 12:35] LABS: HEMOGLOBIN 14.4 g/dL (13.3-17.7); MEAN PLATELET VOLUME 9.3 fL (9.0-12.2); WHITE BLOOD COUNT 5.2 10^3/uL (4.3-11.0)
[2020-04-11 12:44] LABS: ALBUMIN 4.2 GM/DL (3.2-4.5); CHLORIDE 106 MMOL/L (98-107); POTASSIUM 4.7 MMOL/L (3.6-5.0); SODIUM 140 MMOL/L (135-145)
[2020-04-11 12:45] LABS: CALCIUM 9.4 MG/DL (8.5-10.1)
[2020-04-11 12:46] LABS: GLUCOSE 90 MG/DL (70-105)
[2020-04-11 12:47] LABS: TOTAL PROTEIN 7.4 GM/DL (6.4-8.2)
[2020-04-11 12:48] LABS: BILIRUBIN,TOTAL 0.5 MG/DL (0.1-1.0); CARBON DIOXIDE 24 MMOL/L (21-32)
[2020-04-11 12:50] LABS: ALKALINE PHOSPHATASE 49 U/L (40-136); CREATININE SERUM 1.04 MG/DL (0.60-1.30); GFR ESTIMATED > 60
[2020-04-11 12:51] LABS: BUN/CREATININE RATIO 16
[2020-04-11 12:53] LABS: ALANINE AMINOTRANSFERASE 15 U/L (0-55)
--- NOTE | 2020-04-11 15:19 | Diagnostic Imaging Report ---
INDICATION: Suspect a hernia. The bowel gas pattern is grossly unremarkable. The fecal load may be mildly elevated but not clearly pathologic. No evidence for focal impaction. No features suggestive of an overt obstruction. The osseous structures reveal chronic degenerative change and leftward convexity degenerative rotoscoliosis. 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 IMPRESSION: There is perhaps borderline elevated fecal load but no overt obstruction or impaction. Chronic bony changes. No acute appearing abnormality Dictated by: Dictated on workstation # [id number]
--- NOTE | 2020-04-11 15:20 | Diagnostic Imaging Report ---
INDICATION: Worsening shortness of breath with activity. COMPARISON: 03/31/2018 FINDINGS: There is some flattening of the diaphragms and expansion of the retrosternal airspace consistent with air trapping. This is more pronounced than on prior. However previous pleural effusions and perihilar atelectasis has resolved. The lungs are clear on follow-up. No failure, effusion or pneumothorax. IMPRESSION: Resolution of prior pleural fluid, clear hyperexpanded lungs, otherwise negative. Dictated by: Dictated on workstation # [id number]
== END ==
LOC: RAD 12:09
PROVIDERS: ATTEND Family Medicine
DX: R06.02 Shortness of breath (principal); Z85.038 Personal history of other malignant neoplasm of large intestine
CPT/HCPCS: 36415; 71046; 74018; 80053; 82378; 83880; 85027

== ENCOUNTER 2020-05-14 05:39 | Outpatient (CLI) | payer MEDICARE, OTHER ==
[~2020-05-14] VITALS: Ht 172.7 cm; Wt 60.9 kg
[2020-05-14] MEDS ORDERED: GABA-490 PO (13:43)
== END 2020-05-16 13:27 | disposition home or self-care (01) ==
LOC: PREOP 05:39
PROVIDERS: ATTEND Surgery
DX: Z01.818 Encounter for other preprocedural examination (principal)

== ENCOUNTER 2020-05-21 09:18 | Day surgery (SDC) | payer MEDICARE, OTHER ==
[2020-05-21] VITALS (9 sets, daily range): BP systolic 102–156; BP diastolic 57–99
[~2020-05-21] VITALS: Ht 172.7 cm; Wt 60.9 kg
[~2020-05-21 09:18] MED LIST changes: +GABA-490 PO
[2020-05-21] MEDS ORDERED: MIDAZOLAM 5 MG/5 ML (VERSED) VIAL IV ONE (09:30)
[2020-05-21] MEDS ORDERED: LIDOCAINE JELLY 2% 6 ML SYRINGE MM PRN (09:30)
[2020-05-21] MEDS ORDERED: NS IV 500 ML 500 ML IV PRN (09:30)
[2020-05-21] MEDS ORDERED: fentaNYL INJ 100 MCG/2 ML AMP IVP ONE (09:30)
[2020-05-21] MEDS ORDERED: NS IV 500 ML 500 ML ONE (09:31)
--- NOTE | 2020-05-21 10:30 | Conscious Sedation/ASA ---
Conscious Sedation Pre-Proced Time 10:00 ASA Score 2 For ASA 3 and 4: Consider anesthesia and medical clearance. Also, for patients with a history of failed moderate sedation consider anesthesia. Airway Lungs Heart ASA score ASA 1: a normal healthy patient ASA 2: a patient with a mild systemic disease (mid diabetes, controlled hypertension, obesity ASA 3: a patient with a severe systemic disease that limits activity (angina, COPD, prior Myocardial infarction) ASA 4: a patient with an incapacitating disease that is a constant threat to life (CHF, renal failure) ASA 5: a moribund patient not expected to survive 24 hrs. (ruptured aneurysm) ASA 6: a declared brain- patient whose organs are being harvested. For emergent operations, add the letter E after the classification Mallampati Classification Grade 2 Sedation Plan Analgesia, Amnesia, Plan communicated to team members, Discussed options with patient/fam, Discussed risks with patient/fam The patient is an appropriate candidate to undergo the planned procedure, sedation, and anesthesia. The patient immediately re-assessed prior to indication. ATTILA FRANCO MD May 21, 2020 10:30
--- NOTE | 2020-05-21 10:31 | Progress Note-Pre Operative ---
Pre-Operative Progress Note H&P Reviewed The H&P was reviewed, patient examined and no changes noted. Date Seen by Provider: May 21, 2020 Time Seen by Provider: 10:00 Date H&P Reviewed: May 21, 2020 Time H&P Reviewed: 10:00 Pre-Operative Diagnosis: hx colon ca ATTILA FRANCO MD May 21, 2020 10:30
--- NOTE | 2020-05-21 10:31 | Discharge Inst-Surgical ---
D/C Lap Instructions-JOAN Follow Up Appt in 2 weeks Activity as tolerated High Fiber Diet 25g or more per day Avoid Alcohol, Caffeine, Spicy [place] and Acid foods. Drink 64 fluid oz or more of fluids per day. Symptoms to Report: Fever over 101 degree F, Nausea/Vomiting If any problems/questions: Contact your physician or go to Emergency Room ATTILA FRANCO MD May 21, 2020 10:31
[2020-05-21] MEDS ORDERED: ACETAMINOPHEN 325 MG TABLET PO PRN (10:45)
[2020-05-21] MEDS ORDERED: ONDANSETRON 4 MG/2 ML (SDV) Z0FRAN IVP PRN (10:45)
[2020-05-21] MEDS ORDERED: morphine INJ 10 MG/ML 1ML (SYR OR VIAL) IVP PRN ×2 (10:45)
[2020-05-21] MEDS ORDERED: HYDROcodone/APAP 5 MG/325 MG (LORTAB) TAB PO PRN (10:45)
[2020-05-21] MEDS ORDERED: LIDOCAINE JELLY 2% 6 ML SYRINGE ONE (11:01)
[2020-05-21] MEDS ORDERED: fentaNYL INJ 100 MCG/2 ML AMP ONE (11:01)
[2020-05-21] MEDS ORDERED: MIDAZOLAM 5 MG/5 ML (VERSED) VIAL ONE ×2 (11:01)
--- NOTE | 2020-05-21 11:45 | Progress Note-Post Operative ---
Post-Operative Progess Note Surgeon (s)/Line Director (s) Surgeon ATTILA FRANCO MD Line Director: none Pre-Operative Diagnosis hx colon ca Post-Operative Diagnosis mild chronic stage 1 ext and int hemorrhoids, mild desc colon diverticulosis. Procedure & Operative Findings Date of Procedure 05/21/20 Procedure Performed/Findings colonoscopy. Anesthesia Type cs Estimated Blood Loss Estimated blood loss (mL): minimal Specimens/Packing Specimens Removed none ATTILA FRANCO MD May 21, 2020 11:45
--- NOTE | 2020-05-21 16:05 | OPERATIVE REPORT ---
DATE OF SERVICE: 05/21/2020 ATTENDING PRIMARY CARE PHYSICIAN: Dr. Jay Servin. PREOPERATIVE DIAGNOSIS: Personal history of colon cancer. POSTOPERATIVE DIAGNOSES: Mild chronic stage I external and internal hemorrhoids, moderate sigmoid diverticulosis. Normal ileocolonic anastomosis. No recurrent lesions. PROCEDURE: Colonoscopy. SURGEON: Attila Franco MD. ANESTHESIA: Conscious sedation. ESTIMATED BLOOD LOSS: Minimal. FINDINGS: Mild chronic stage I external and internal hemorrhoids, moderate sigmoid diverticulosis. Normal ileocolonic anastomosis. No recurrent lesions. DISPOSITION: The patient tolerated the procedure well. INDICATION: The patient is an 84-year-old male known to us. He was found to have a large apple-core lesion of the sigmoid colon, which was biopsied and confirmed to be an adenocarcinoma. He then underwent a laparoscopic low anterior colorectal resection; however, did have wound dehiscence requiring wound VAC placement. He did eventually undergo an incisional hernia repair 04/05/2019. He has also had a 1-year followup colonoscopy, which was normal and he is here for a second-year followup colonoscopy. DESCRIPTION OF PROCEDURE: The patient was brought to the endoscopy suite, laid in the left lateral decubitus position. After adequate IV pain and sedative medications and conscious sedation anesthesia, a digital rectal examination was performed. Mild stage I external and internal hemorrhoids were identified, which were not actively edematous nor inflamed and no bleeding. Normal sphincter tone was felt and there were no palpable masses. Prostate gland was palpable and appeared normal. The endoscope was then intubated to the anus and rectum gently insufflated. The rectum appeared normal. The area of anastomosis appeared normal as well as no recurrent lesions. We then proceeded through the descending colon where some moderate diverticulosis identified. The endoscope was then advanced to the remainder of the descending, transverse and ascending colon to the cecum, which appeared normal. The endoscope was then slowly withdrawn while taking a second look and suctioning of residual air with no additional findings. The patient tolerated the procedure well. We will recommend continued medical management with a high fiber diet with at least 30 grams of fiber daily as well as significant amounts of water to promote soft stools on a daily basis. We will recommend a followup colonoscopy in 1 year and if this is normal, then he may wait 5 years for his followup colonoscopy. Job ID: [id number] DocumentID: [id number] Dictated Date: 05/21/2020 11:41:31 Decatizer Date: 05/21/2020 16:05:01 Dictated By: ATTILA FRANCO MD
== END 2020-05-21 12:23 | disposition home or self-care (01) ==
LOC: ENDO 09:18
PROVIDERS: ATTEND Surgery
DX: Z12.11 Encounter for screening for malignant neoplasm of colon (principal); K64.0 First degree hemorrhoids; K57.30 Diverticulosis of large intestine without perforation or abscess without bleeding; F41.9 Anxiety disorder, unspecified; F32.9 Major depressive disorder, single episode, unspecified; E78.00 Pure hypercholesterolemia, unspecified; G62.9 Polyneuropathy, unspecified; N40.0 Benign prostatic hyperplasia without lower urinary tract symptoms; Z79.899 Other long term (current) drug therapy; Z88.1 Allergy status to other antibiotic agents; Z85.51 Personal history of malignant neoplasm of bladder; Z85.038 Personal history of other malignant neoplasm of large intestine; Z80.3 Family history of malignant neoplasm of breast
CPT/HCPCS: G0105

== ENCOUNTER → 2020-08-05 | Outpatient (CLI) | payer MEDICARE, OTHER ==
[2020-08-05 09:38] LABS: BASOPHILS % (AUTO) 1 % (0-10); EOSINOPHILS # (AUTO) 0.1 10^3/uL (0.0-0.3); EOSINOPHILS % (AUTO) 2 % (0-10); HEMATOCRIT 43 % (40-54); HEMOGLOBIN 14.3 g/dL (13.3-17.7); LYMPHOCYTES # (AUTO) 1.5 10^3/uL (1.0-4.0); LYMPHOCYTES % (AUTO) 32 % (12-44); MEAN CORPUSCULAR HEMOGLOBIN 30 pg (25-34); MEAN CORPUSCULAR HGB CONC 33 g/dL (32-36); MEAN CORPUSCULAR VOLUME 90 fL (80-99); MEAN PLATELET VOLUME 9.3 fL (9.0-12.2); MONOCYTES # (AUTO) 0.7 10^3/uL (0.0-1.0); MONOCYTES % (AUTO) 14 % (0-12); NEUTROPHILS # (AUTO) 2.4 10^3/uL (1.8-7.8); NEUTROPHILS % (AUTO) 51 % (42-75); PLATELET COUNT 153 10^3/uL (130-400); WHITE BLOOD COUNT 4.6 10^3/uL (4.3-11.0)
[2020-08-05 10:02] LABS: ALANINE AMINOTRANSFERASE 13 U/L (0-55); ALBUMIN 3.9 GM/DL (3.2-4.5); ALKALINE PHOSPHATASE 51 U/L (40-136); BILIRUBIN,TOTAL 0.7 MG/DL (0.1-1.0); BUN/CREATININE RATIO 19; CALCIUM 9.3 MG/DL (8.5-10.1); CARBON DIOXIDE 25 MMOL/L (21-32); CHLORIDE 107 MMOL/L (98-107); CREATININE SERUM 0.98 MG/DL (0.60-1.30); GFR ESTIMATED > 60; GLUCOSE 89 MG/DL (70-105); POTASSIUM 4.2 MMOL/L (3.6-5.0); SODIUM 141 MMOL/L (135-145)
== END ==
LOC: ONC 09:30
PROVIDERS: ATTEND Internal Medicine Hematology & Oncology
DX: C20 Malignant neoplasm of rectum (principal); E78.5 Hyperlipidemia, unspecified; R79.89 Other specified abnormal findings of blood chemistry; Z98.890 Other specified postprocedural states
CPT/HCPCS: 80053; 85025; G0463; 99213

== ENCOUNTER → 2021-01-26 | Outpatient (CLI) | payer MEDICARE, OTHER ==
[2021-01-26 10:34] LABS: BASOPHILS % (AUTO) 0 % (0-10); EOSINOPHILS # (AUTO) 0.1 10^3/uL (0.0-0.3); EOSINOPHILS % (AUTO) 3 % (0-10); HEMATOCRIT 41 % (40-54); HEMOGLOBIN 13.6 g/dL (13.3-17.7); LYMPHOCYTES % (AUTO) 21 % (12-44); MEAN CORPUSCULAR HEMOGLOBIN 30 pg (25-34); MEAN CORPUSCULAR HGB CONC 33 g/dL (32-36); MEAN CORPUSCULAR VOLUME 91 fL (80-99); MEAN PLATELET VOLUME 9.3 fL (9.0-12.2); MONOCYTES # (AUTO) 0.7 10^3/uL (0.0-1.0); MONOCYTES % (AUTO) 14 % (0-12); NEUTROPHILS # (AUTO) 2.8 10^3/uL (1.8-7.8); NEUTROPHILS % (AUTO) 61 % (42-75); PLATELET COUNT 163 10^3/uL (130-400); WHITE BLOOD COUNT 4.6 10^3/uL (4.3-11.0)
[2021-01-26 10:55] LABS: ALBUMIN 3.9 GM/DL (3.2-4.5); BILIRUBIN,TOTAL 0.5 MG/DL (0.1-1.0); CALCIUM 9.3 MG/DL (8.5-10.1); CREATININE SERUM 1.04 MG/DL (0.60-1.30); POTASSIUM 4.5 MMOL/L (3.6-5.0); TOTAL PROTEIN 6.9 GM/DL (6.4-8.2)
== END ==
LOC: ONC 10:14
PROVIDERS: ATTEND Internal Medicine Hematology & Oncology
DX: C20 Malignant neoplasm of rectum (principal); E78.5 Hyperlipidemia, unspecified; Z98.890 Other specified postprocedural states
CPT/HCPCS: 80053; 85025; G0463; 99213

== ENCOUNTER → 2021-06-24 | Outpatient (CLI) | payer MEDICARE, OTHER ==
[~2021-06-24] VITALS: Ht 172.7 cm; Wt 59.4 kg
[~2021-06-24] MED LIST changes: +UBID10CA5 PO
== END | disposition home or self-care (01) ==
LOC: PREOP 05:37
PROVIDERS: ATTEND Surgery
DX: Z01.818 Encounter for other preprocedural examination (principal)

== ENCOUNTER 2021-07-01 09:15 | Day surgery (SDC) | payer MEDICARE, OTHER ==
[~2021-07-01] VITALS: Ht 172.7 cm; Wt 59.4 kg
[2021-07-01] MEDS ORDERED: LACTATED RINGERS 1,000 ML IV STA (09:22)
[2021-07-01] MEDS ORDERED: LIDOCAINE JELLY 2% 6 ML SYRINGE MM PRN (09:30)
[2021-07-01] MEDS ORDERED: PROPOFOL INJECTION 50 ML IV ONE (09:37)
[2021-07-01 09:44] VITALS: BP 139/78
--- NOTE | 2021-07-01 11:16 | Progress Note-Pre Operative ---
Pre-Operative Progress Note H&P Reviewed The H&P was reviewed, patient examined and no changes noted. Date Seen by Provider: July 01, 2021 Time Seen by Provider: 10:00 Date H&P Reviewed: July 01, 2021 Time H&P Reviewed: 10:00 Pre-Operative Diagnosis: hx colon cancer ATTILA FRANCO MD July 01, 2021 11:16
--- NOTE | 2021-07-01 11:17 | Discharge Inst-Surgical ---
D/C Lap Instructions-JOAN Follow Up Activity as tolerated High Fiber Diet 25g or more per day Avoid Alcohol, Caffeine, Spicy [place] and Acid foods. Drink 64 fluid oz or more of fluids per day. Symptoms to Report: Fever over 101 degree F, Nausea/Vomiting If any problems/questions: Contact your physician or go to Emergency Room ATTILA FRANCO MD July 01, 2021 11:17
[2021-07-01] MEDS ORDERED: ONDANSETRON 4 MG (ZOFRAN) ORAL DISSOLVE TAB PO PRN (11:30)
[2021-07-01] MEDS ORDERED: ONDANSETRON 4 MG/2 ML (SDV) Z0FRAN IVP PRN (11:30)
[2021-07-01 12:00] VITALS: BP 132/59
[2021-07-01 12:05] VITALS: BP_SYST 102; BP_SYST 117; BP_DIAS 58
--- NOTE | 2021-07-01 12:15 | Progress Note-Post Operative ---
Post-Operative Progess Note Surgeon (s)/Marketing And Public Relations Manager (s) Surgeon ATTILA FRANCO MD Marketing And Public Relations Manager: none Pre-Operative Diagnosis hx colon cancer Post-Operative Diagnosis mild chronic stage 2 ext and in hemorrhoids. Procedure & Operative Findings Date of Procedure 07/01/21 Procedure Performed/Findings colonoscopy Anesthesia Type mac Estimated Blood Loss Estimated blood loss (mL): minimal Specimens/Packing Specimens Removed none ATTILA FRANCO MD July 01, 2021 12:15
--- NOTE | 2021-07-01 12:18 | Anesthesia-General Post-Op ---
MAC Patient Condition Mental Status/LOC: Same as Preop Cardiovascular: Satisfactory Nausea/Vomiting: Absent Respiratory: Satisfactory Pain: Controlled Complications: Absent Post Op Complications Complications None Follow Up Care/Instructions Patient Instructions None needed. Anesthesiology Discharge Order Discharge Order Patient is doing well, no complaints, stable vital signs, no apparent adverse anesthesia problems. No complications reported per nursing. MARGE COFFEY CRNA July 01, 2021 12:18
[2021-07-01 12:35] VITALS: BP_SYST 103; BP_SYST 117; BP_DIAS 58; BP_DIAS 78
[2021-07-01 14:05] VITALS: BP 103/78
--- NOTE | 2021-07-01 19:53 | OPERATIVE REPORT ---
DATE OF SERVICE: 07/01/2021 ATTENDING PRIMARY CARE PHYSICIAN: Dr. Jay Servin. PREOPERATIVE DIAGNOSIS: Personal history of colon cancer. POSTOPERATIVE DIAGNOSES: Chronic stage II external and internal hemorrhoids. Normal colorectal anastomosis. Mild descending diverticulosis. No recurrent tumors. PROCEDURE: Colonoscopy. SURGEON: Attila Franco MD ANESTHESIA: Monitored anesthesia care. ESTIMATED BLOOD LOSS: Minimal. FINDINGS: Chronic stage II external and internal hemorrhoids. Normal colorectal anastomosis. Mild descending diverticulosis. No recurrent tumors. DISPOSITION: The patient tolerated the procedure well. INDICATIONS: The patient is an 85-year-old male known to us. He was found to have a large apple-core lesion of the rectosigmoid junction. 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 He then underwent a laparoscopic low anterior colorectal resection on 03/28/2018. He also developed wound dehiscence as well as a VAC placement. He eventually did develop an incisional hernia, which was repaired on 04/05/2019. He has had followup colonoscopies, which have been normal. This will be his third followup colonoscopy. He states that he is otherwise doing well. DESCRIPTION OF PROCEDURE: The patient was brought to the endoscopy suite, laid in left lateral decubitus position. After adequate IV pain and sedative medications and monitored anesthesia care, digital rectal examination was performed. Mild chronic stage II external and internal hemorrhoids were identified, which were not actively edematous nor inflamed and no bleeding. Normal sphincter tone was felt and there were no palpable masses. Prostate gland was palpable and appeared normal. The endoscope was then intubated to the anus and rectum gently insufflated. The endoscope was then advanced through the valves of [place] of the rectum with no polyps or any neoplasms identified. The colorectal anastomosis appeared normal with no strictures. The endoscope was then advanced through the descending colon where there was few isolated diverticula. The endoscope was then advanced to remainder of the transverse and ascending colon to the cecum, which were normal. There were no polyps nor any neoplasms identified. The endoscope was then slowly withdrawn while taking a second look and suctioning of residual air with no additional findings. The patient tolerated the procedure well. We will recommend a high fiber diet with at least 30 grams of fiber daily as well as significant amounts of water to promote soft stools on a daily basis. This is his third followup colonoscopy after resection of his adenocarcinoma and he may wait five years until his next colonoscopy if he is asymptomatic. We will have him continue to follow up with oncology for laboratory work and chest x-rays. Job ID: [id number] DocumentID: [id number] Dictated Date: 07/01/2021 12:15:20 [employer]ellite [employer]v [employer]er Date: 07/01/2021 19:52:59 Dictated By: ATTILA FRANCO MD
== END 2021-07-01 13:01 | disposition home or self-care (01) ==
LOC: ENDO 09:15
PROVIDERS: ATTEND Surgery
DX: Z12.11 Encounter for screening for malignant neoplasm of colon (principal); K57.30 Diverticulosis of large intestine without perforation or abscess without bleeding; K64.1 Second degree hemorrhoids; K64.4 Residual hemorrhoidal skin tags; Z85.038 Personal history of other malignant neoplasm of large intestine; Z85.51 Personal history of malignant neoplasm of bladder; Z87.891 Personal history of nicotine dependence

== ENCOUNTER → 2021-08-13 | Outpatient (CLI) | payer MEDICARE, OTHER ==
[2021-08-13 10:12] LABS: BASOPHILS % (AUTO) 0 % (0-10); EOSINOPHILS # (AUTO) 0.1 10^3/uL (0.0-0.3); EOSINOPHILS % (AUTO) 2 % (0-10); HEMATOCRIT 41 % (40-54); HEMOGLOBIN 13.4 g/dL (13.3-17.7); LYMPHOCYTES # (AUTO) 1.1 10^3/uL (1.0-4.0); LYMPHOCYTES % (AUTO) 23 % (12-44); MEAN CORPUSCULAR HEMOGLOBIN 30 pg (25-34); MEAN CORPUSCULAR HGB CONC 33 g/dL (32-36); MEAN CORPUSCULAR VOLUME 91 fL (80-99); MEAN PLATELET VOLUME 8.9 fL (9.0-12.2); MONOCYTES # (AUTO) 0.6 10^3/uL (0.0-1.0); MONOCYTES % (AUTO) 13 % (0-12); NEUTROPHILS % (AUTO) 61 % (42-75); PLATELET COUNT 258 10^3/uL (130-400); WHITE BLOOD COUNT 4.9 10^3/uL (4.3-11.0)
[2021-08-13 10:30] LABS: ALBUMIN 3.8 GM/DL (3.2-4.5); BILIRUBIN,TOTAL 0.3 MG/DL (0.1-1.0); CALCIUM 9.5 MG/DL (8.5-10.1); CREATININE SERUM 1.04 MG/DL (0.60-1.30); POTASSIUM 4.5 MMOL/L (3.6-5.0); TOTAL PROTEIN 6.7 GM/DL (6.4-8.2)
== END ==
LOC: ONC 09:31
PROVIDERS: ATTEND Internal Medicine Hematology & Oncology
DX: C20 Malignant neoplasm of rectum (principal); E78.5 Hyperlipidemia, unspecified; Z98.890 Other specified postprocedural states
CPT/HCPCS: 80053; 85025; G0463; 36415; 99213

== ENCOUNTER 2022-02-08 09:03 | Outpatient (RCR) | payer MEDICARE, OTHER ==
[2022-02-08 09:35] LABS: BASOPHILS % (AUTO) 1 % (0-10); EOSINOPHILS # (AUTO) 0.2 10^3/uL (0.0-0.3); EOSINOPHILS % (AUTO) 3 % (0-10); HEMATOCRIT 44 % (40-54); HEMOGLOBIN 14.6 g/dL (13.3-17.7); LYMPHOCYTES # (AUTO) 1.2 10^3/uL (1.0-4.0); LYMPHOCYTES % (AUTO) 25 % (12-44); MEAN CORPUSCULAR HEMOGLOBIN 30 pg (25-34); MEAN CORPUSCULAR HGB CONC 33 g/dL (32-36); MEAN CORPUSCULAR VOLUME 91 fL (80-99); MEAN PLATELET VOLUME 8.8 fL (9.0-12.2); MONOCYTES # (AUTO) 0.6 10^3/uL (0.0-1.0); MONOCYTES % (AUTO) 12 % (0-12); NEUTROPHILS # (AUTO) 2.7 10^3/uL (1.8-7.8); NEUTROPHILS % (AUTO) 58 % (42-75); PLATELET COUNT 221 10^3/uL (130-400); WHITE BLOOD COUNT 4.6 10^3/uL (4.3-11.0)
[2022-02-08 09:53] LABS: ALBUMIN 4.2 GM/DL (3.2-4.5); BILIRUBIN,TOTAL 0.4 MG/DL (0.1-1.0); CALCIUM 9.7 MG/DL (8.5-10.1); CREATININE SERUM 1.25 MG/DL (0.60-1.30); POTASSIUM 4.5 MMOL/L (3.6-5.0); TOTAL PROTEIN 7.7 GM/DL (6.4-8.2)
== END 2022-02-20 | disposition home or self-care (01) ==
LOC: ONC 09:03
PROVIDERS: ATTEND Internal Medicine Hematology & Oncology
DX: C20 Malignant neoplasm of rectum (principal); E78.5 Hyperlipidemia, unspecified
CPT/HCPCS: 80053; 85025; G0463; 36415; 99213

== ENCOUNTER 2022-07-07 08:49 | Outpatient (RCR) | payer MEDICARE, OTHER ==
[2022-07-07 09:10] LABS: BASOPHILS % (AUTO) 1 % (0-10); EOSINOPHILS # (AUTO) 0.1 10^3/uL (0.0-0.3); EOSINOPHILS % (AUTO) 3 % (0-10); HEMATOCRIT 43 % (40-54); HEMOGLOBIN 14.6 g/dL (13.3-17.7); LYMPHOCYTES # (AUTO) 1.2 10^3/uL (1.0-4.0); LYMPHOCYTES % (AUTO) 28 % (12-44); MEAN CORPUSCULAR HEMOGLOBIN 31 pg (25-34); MEAN CORPUSCULAR HGB CONC 34 g/dL (32-36); MEAN CORPUSCULAR VOLUME 90 fL (80-99); MEAN PLATELET VOLUME 9.1 fL (9.0-12.2); MONOCYTES # (AUTO) 0.6 10^3/uL (0.0-1.0); MONOCYTES % (AUTO) 13 % (0-12); NEUTROPHILS # (AUTO) 2.4 10^3/uL (1.8-7.8); NEUTROPHILS % (AUTO) 55 % (42-75); PLATELET COUNT 175 10^3/uL (130-400); WHITE BLOOD COUNT 4.4 10^3/uL (4.3-11.0)
[2022-07-07 09:37] LABS: ALBUMIN 4.2 GM/DL (3.2-4.5); BILIRUBIN,TOTAL 0.4 MG/DL (0.1-1.0); CALCIUM 9.7 MG/DL (8.5-10.1); CREATININE SERUM 1.22 MG/DL (0.60-1.30); POTASSIUM 4.5 MMOL/L (3.6-5.0); TOTAL PROTEIN 7.1 GM/DL (6.4-8.2)
== END 2022-07-21 | disposition home or self-care (01) ==
LOC: ONC 08:49
PROVIDERS: ATTEND Internal Medicine Hematology & Oncology
DX: C20 Malignant neoplasm of rectum (principal); E78.5 Hyperlipidemia, unspecified
CPT/HCPCS: 36415; 80053; 85025

== ENCOUNTER 2023-01-07 09:06 | Outpatient (RCR) | payer MEDICARE, OTHER ==
[~2023-01-07 09:06] MED LIST changes: -GABA-490 PO; +GABA-491 PO
[2023-01-07 09:20] LABS: BASOPHILS % (AUTO) 0 % (0-10); EOSINOPHILS # (AUTO) 0.1 10^3/uL (0.0-0.3); EOSINOPHILS % (AUTO) 2 % (0-10); HEMATOCRIT 44 % (40-54); HEMOGLOBIN 14.2 g/dL (13.3-17.7); LYMPHOCYTES # (AUTO) 1.3 10^3/uL (1.0-4.0); LYMPHOCYTES % (AUTO) 24 % (12-44); MEAN CORPUSCULAR HEMOGLOBIN 29 pg (25-34); MEAN CORPUSCULAR HGB CONC 32 g/dL (32-36); MEAN CORPUSCULAR VOLUME 91 fL (80-99); MEAN PLATELET VOLUME 9.3 fL (9.0-12.2); MONOCYTES # (AUTO) 0.6 10^3/uL (0.0-1.0); MONOCYTES % (AUTO) 12 % (0-12); NEUTROPHILS # (AUTO) 3.3 10^3/uL (1.8-7.8); NEUTROPHILS % (AUTO) 61 % (42-75); PLATELET COUNT 152 10^3/uL (130-400); WHITE BLOOD COUNT 5.3 10^3/uL (4.3-11.0)
[2023-01-07 09:42] LABS: ALBUMIN 4.2 GM/DL (3.2-4.5); BILIRUBIN,TOTAL 0.4 MG/DL (0.1-1.0); CALCIUM 9.4 MG/DL (8.5-10.1); CREATININE SERUM 1.07 MG/DL (0.60-1.30); POTASSIUM 4.3 MMOL/L (3.6-5.0); TOTAL PROTEIN 7.1 GM/DL (6.4-8.2)
== END 2023-01-20 | disposition home or self-care (01) ==
LOC: ONC 09:06
PROVIDERS: ATTEND Internal Medicine Hematology & Oncology
DX: C20 Malignant neoplasm of rectum (principal); E78.5 Hyperlipidemia, unspecified
CPT/HCPCS: 80053; 82378; 85025